=== PATIENT | female | born 1930 | race Caucasian/White ===

== ENCOUNTER 2016-07-20 12:39 | Outpatient (CLI) | payer MEDICARE | END 2016-07-20 12:40 | disposition home or self-care (01) | DX: R35.0 Frequency of micturition (principal) ==

== ENCOUNTER 2016-07-21 | Outpatient (CLI) | payer MEDICARE | END 2016-07-21 15:10 | disposition home or self-care (01) ==

== ENCOUNTER 2016-07-25 09:00 | Outpatient (CLI) | payer MEDICARE | END 2016-07-25 09:01 | disposition home or self-care (01) | DX: R35.0 Frequency of micturition (principal) ==

== ENCOUNTER 2016-07-29 14:16 | Emergency (ER) | payer MEDICARE ==
[2016-07-29] MEDS ORDERED: ALBUTEROL NEB 2.5 MG/3 ML INH STA (15:56)
[2016-07-29] MEDS ORDERED: DEXAMETHASONE 10 MG/ML VIAL PO STA (15:56)
[2016-07-29] MEDS ORDERED: ALBUTEROL NEB 2.5 MG/3 ML INH ONE (16:12)
[2016-07-29] MEDS ORDERED: DEXAMETHASONE 10 MG/ML VIAL ONE (16:13)
[2016-07-29] MEDS ORDERED: CHERRY SYRUP 10 ML UDC PO ONE (16:16)
== END 2016-07-29 17:09 | disposition home or self-care (01) ==
DX: J06.9 Acute upper respiratory infection, unspecified (principal); B97.89 Other viral agents as the cause of diseases classified elsewhere; R05 Cough; I10 Essential (primary) hypertension; Z87.891 Personal history of nicotine dependence
CPT/HCPCS: 71020; 93005; 93010; 94640; 99283; 99284; A9270; J7613

== ENCOUNTER 2016-08-11 08:58 | Outpatient (CLI) | payer MEDICARE | END 2016-08-11 08:59 | disposition home or self-care (01) | DX: K25.0 Acute gastric ulcer with hemorrhage (principal); D62 Acute posthemorrhagic anemia; R73.01 Impaired fasting glucose; M54.5 Low back pain; Z85.828 Personal history of other malignant neoplasm of skin; C50.919 Malignant neoplasm of unspecified site of unspecified female breast; M85.80 Other specified disorders of bone density and structure, unspecified site; M54.6 Pain in thoracic spine; M48.06 Spinal stenosis, lumbar region; B35.4 Tinea corporis; I10 Essential (primary) hypertension; R35.0 Frequency of micturition ==

== ENCOUNTER 2016-08-18 | Outpatient (CLI) | payer MEDICARE | END 2016-08-18 15:51 | disposition home or self-care (01) ==

== ENCOUNTER 2016-09-01 06:13 | Day surgery (SDC) | payer MEDICARE ==
[2016-09-01] MEDS ORDERED: LACTATED RINGERS 1,000 ML IV ONE (06:40)
[2016-09-01] MEDS ORDERED: BENZOCAINE/TETRACAINE/BUTAMBEN SPRAY 56 GM TOP ONE (07:39)
[2016-09-01] MEDS ORDERED: MIDAZOLAM 2 MG/2 ML VIAL IVP ONE (07:56)
[2016-09-01] MEDS ORDERED: fentaNYL 100 MCG/2 ML VIAL IVP ONE (07:56)
== END 2016-09-01 06:14 | disposition home or self-care (01) ==
PROC: 0DB68ZX Excision of Stomach, Via Natural or Artificial Opening Endoscopic, Diagnostic (ICD-10-PCS; principal; 2016-09-01 07:30)
DX: K25.9 Gastric ulcer, unspecified as acute or chronic, without hemorrhage or perforation (principal); K29.50 Unspecified chronic gastritis without bleeding; K44.9 Diaphragmatic hernia without obstruction or gangrene; I10 Essential (primary) hypertension; Z87.891 Personal history of nicotine dependence; Z88.0 Allergy status to penicillin; Z88.2 Allergy status to sulfonamides
CPT/HCPCS: 43239; A9270; J7120

== ENCOUNTER 2016-09-08 | Outpatient (CLI) | payer MEDICARE | END 2016-09-08 14:20 | disposition home or self-care (01) ==

== ENCOUNTER 2016-09-15 15:00 | Outpatient (CLI) | payer MEDICARE | END 2016-09-15 15:01 | disposition home or self-care (01) | DX: M54.5 Low back pain (principal) ==

== ENCOUNTER 2016-09-29 14:09 | Outpatient (CLI) | payer MEDICARE | END 2016-09-29 14:10 | disposition home or self-care (01) | DX: M54.5 Low back pain (principal) ==

== ENCOUNTER 2016-10-13 15:06 | Outpatient (CLI) | payer MEDICARE | END 2016-10-13 15:07 | disposition home or self-care (01) | DX: M54.5 Low back pain (principal) ==

== ENCOUNTER 2016-10-27 14:16 | Outpatient (CLI) | payer MEDICARE | END 2016-10-27 14:17 | disposition home or self-care (01) | DX: M54.5 Low back pain (principal) ==

== ENCOUNTER 2016-11-10 14:48 | Outpatient (CLI) | payer MEDICARE | END 2016-11-10 14:49 | disposition home or self-care (01) | DX: M54.5 Low back pain (principal) ==

== ENCOUNTER 2016-11-24 14:15 | Outpatient (CLI) | payer MEDICARE | END 2016-11-24 14:16 | disposition home or self-care (01) | DX: M54.5 Low back pain (principal) ==

== ENCOUNTER 2016-12-08 14:13 | Outpatient (CLI) | payer MEDICARE | END 2016-12-08 14:14 | disposition home or self-care (01) | LOC: CAM 14:13 | PROVIDERS: ATTEND Internal Medicine | DX: M54.5 Low back pain (principal) | CPT/HCPCS: 97810; 97811 ==

== ENCOUNTER 2016-12-16 14:36 | Outpatient (CLI) | payer MEDICARE ==
[2016-12-16 18:08] LABS: BASOPHILS % (AUTO) 0.7 %; EOSINOPHILS # (AUTO) 0.3 10^3/uL (0.0-0.7); EOSINOPHILS % (AUTO) 4.3 %; HCT - HEMATOCRIT 35.2 % (37.0-47.0); HGB - HEMOGLOBIN 11.8 g/dL (12.0-16.0); LYMPHOCYTES # (AUTO) 0.9 10^3/uL (1.5-3.5); LYMPHOCYTES % (AUTO) 14.8 %; MEAN CORPUSCULAR HEMOGLOBIN 31.9 pg (27.0-31.0); MEAN CORPUSCULAR HGB CONC 33.4 g/dL (32.0-36.0); MEAN CORPUSCULAR VOLUME 95.4 fL (81.0-99.0); MEAN PLATELET VOLUME 8.1 fL (7.9-10.8); MONOCYTES # (AUTO) 0.6 10^3/uL (0.0-1.0); MONOCYTES % (AUTO) 8.6 %; NEUTROPHILS # (AUTO) 4.6 10^3/uL (1.5-6.6); NEUTROPHILS % (AUTO) 71.6 %; NUCLEATED RED BLOOD CELLS AUTO 0.1 /100WBC; RED BLOOD COUNT 3.69 10^6/uL (4.20-5.40); RED CELL DISTRIBUTION WIDTH 13.5 % (12.0-15.0); UNCORRECTED WHITE BLOOD COUNT 6.4 x10^3/uL; WHITE BLOOD COUNT 6.4 x10^3/uL (4.8-10.8)
== END 2016-12-16 14:37 | disposition home or self-care (01) ==
LOC: LAB.F 14:36
PROVIDERS: ATTEND Internal Medicine
DX: D62 Acute posthemorrhagic anemia (principal); R73.01 Impaired fasting glucose; M54.5 Low back pain; C50.919 Malignant neoplasm of unspecified site of unspecified female breast; M85.80 Other specified disorders of bone density and structure, unspecified site; M54.6 Pain in thoracic spine; Z85.828 Personal history of other malignant neoplasm of skin; M48.06 Spinal stenosis, lumbar region; B35.4 Tinea corporis; I10 Essential (primary) hypertension
CPT/HCPCS: 36415; 82728; 85025

== ENCOUNTER 2016-12-22 14:22 | Outpatient (CLI) | payer MEDICARE | END 2016-12-22 14:23 | disposition home or self-care (01) | LOC: CAM 14:22 | PROVIDERS: ATTEND Internal Medicine | DX: M54.5 Low back pain (principal) | CPT/HCPCS: 97810; 97811 ==

== ENCOUNTER 2017-01-05 14:19 | Outpatient (CLI) | payer MEDICARE | END 2017-01-05 14:20 | disposition home or self-care (01) | LOC: CAM 14:19 | PROVIDERS: ATTEND Internal Medicine | DX: M54.5 Low back pain (principal) | CPT/HCPCS: 97810; 97811 ==

== ENCOUNTER 2017-01-26 14:18 | Outpatient (CLI) | payer MEDICARE | END 2017-01-26 14:19 | disposition home or self-care (01) | LOC: CAM 14:18 | PROVIDERS: ATTEND Internal Medicine | DX: M54.5 Low back pain (principal) | CPT/HCPCS: 97810; 97811 ==

== ENCOUNTER 2017-02-09 14:13 | Outpatient (CLI) | payer MEDICARE | END 2017-02-09 14:14 | disposition home or self-care (01) | LOC: CAM 14:13 | PROVIDERS: ATTEND Internal Medicine | DX: M54.5 Low back pain (principal) | CPT/HCPCS: 97810; 97811 ==

== ENCOUNTER 2017-02-23 14:13 | Outpatient (CLI) | payer MEDICARE | END 2017-02-23 14:14 | disposition home or self-care (01) | LOC: CAM 14:13 | PROVIDERS: ATTEND Internal Medicine | DX: M54.5 Low back pain (principal) | CPT/HCPCS: 97810; 97811 ==

== ENCOUNTER 2017-03-09 14:15 | Outpatient (CLI) | payer MEDICARE | END 2017-03-09 14:16 | disposition home or self-care (01) | LOC: CAM 14:15 | PROVIDERS: ATTEND Internal Medicine | DX: M54.5 Low back pain (principal) | CPT/HCPCS: 97810; 97811 ==

== ENCOUNTER 2017-04-05 12:49 | Outpatient (CLI) | payer MEDICARE ==
[2017-04-05 18:04] LABS: BASOPHILS % (AUTO) 0.7 %; EOSINOPHILS # (AUTO) 0.2 10^3/uL (0.0-0.7); EOSINOPHILS % (AUTO) 3.2 %; HCT - HEMATOCRIT 37.6 % (37.0-47.0); HGB - HEMOGLOBIN 12.8 g/dL (12.0-16.0); MEAN CORPUSCULAR HEMOGLOBIN 32.4 pg (27.0-31.0); MEAN CORPUSCULAR HGB CONC 34.1 g/dL (32.0-36.0); MEAN CORPUSCULAR VOLUME 94.9 fL (81.0-99.0); MONOCYTES # (AUTO) 0.5 10^3/uL (0.0-1.0); NEUTROPHILS # (AUTO) 3.6 10^3/uL (1.5-6.6); NEUTROPHILS % (AUTO) 67.1 %; NUCLEATED RED BLOOD CELLS AUTO 0.1 /100WBC; RED BLOOD COUNT 3.97 10^6/uL (4.20-5.40); RED CELL DISTRIBUTION WIDTH 13.3 % (12.0-15.0); UNCORRECTED WHITE BLOOD COUNT 5.4 x10^3/uL; WHITE BLOOD COUNT 5.4 x10^3/uL (4.8-10.8)
[2017-04-05 19:10] LABS: CALCIUM 10.1 mg/dL (8.5-10.3); POTASSIUM 3.6 mmol/L (3.5-5.0)
== END 2017-04-05 12:50 | disposition home or self-care (01) ==
LOC: LAB.F 12:49
PROVIDERS: ATTEND Internal Medicine
DX: R73.01 Impaired fasting glucose (principal); M54.5 Low back pain; C50.919 Malignant neoplasm of unspecified site of unspecified female breast; M85.80 Other specified disorders of bone density and structure, unspecified site; D62 Acute posthemorrhagic anemia; M54.6 Pain in thoracic spine; Z85.828 Personal history of other malignant neoplasm of skin; M48.06 Spinal stenosis, lumbar region; I10 Essential (primary) hypertension
CPT/HCPCS: 36415; 80048; 83540; 84466; 85025

== ENCOUNTER 2017-04-06 14:28 | Outpatient (CLI) | payer MEDICARE | END 2017-04-06 14:29 | disposition home or self-care (01) | LOC: CAM 14:28 | PROVIDERS: ATTEND Internal Medicine | DX: M54.5 Low back pain (principal) | CPT/HCPCS: 97813; 97814 ==

== ENCOUNTER 2017-04-20 14:16 | Outpatient (CLI) | payer MEDICARE | END 2017-04-20 14:17 | disposition home or self-care (01) | LOC: CAM 14:16 | PROVIDERS: ATTEND Internal Medicine | DX: M54.5 Low back pain (principal) | CPT/HCPCS: 97810; 97811 ==

== ENCOUNTER 2017-04-20 15:20 | Outpatient (CLI) | payer MEDICARE ==
--- NOTE | 2017-04-24 13:26 | Mammography Report ---
DIGITAL SCREENING MAMMOGRAM: 04/20/2017 CLINICAL INDICATION: An 86-year-old with personal history of left breast cancer status post mastecto my. COMPARISON: 04/2016, 12/2014, 07/2013, 05/2012, 04/2011, 04/2010. TECHNIQUE: Right CC and MLO views were obtained. FINDINGS: The right breast again demonstrates heterogeneously dense fibroglandular parenchyma. Coar se and punctate, typically benign calcifications are present. No suspicious masses, clustered microc alcifications, or regions of architectural distortion are identified. IMPRESSION: BENIGN FINDINGS. RECOMMENDATION: Routine annual screening unless otherwise clinically indicated. BI-RADS category 2, benign findings. STANDARD QUALIFYING STATEMENTS 1. This examination was reviewed with the aid of Computer-Aided Detection (CAD). 2. A negative or benign imaging report should not delay biopsy if clinically suspicious findings are present. Consider surgical consultation if warranted. More than 5% of cancers are not identified by i maging. 3. Dense breasts may obscure an underlying neoplasm. JOB #: [id number] EXT JOB #:[id number]
== END 2017-04-20 15:21 | disposition home or self-care (01) ==
LOC: DI 15:20
PROVIDERS: ATTEND Internal Medicine
DX: Z12.31 Encounter for screening mammogram for malignant neoplasm of breast (principal); Z85.3 Personal history of malignant neoplasm of breast; Z90.12 Acquired absence of left breast and nipple

== ENCOUNTER 2017-04-20 15:52 | Outpatient (CLI) | payer MEDICARE ==
--- NOTE | 2017-04-21 08:28 | XRAY Report ---
THREE-VIEW BILATERAL SHOULDERS: 04/20/2017 CLINICAL INDICATION: Pain. FINDINGS: Internal and external rotational views and scapular Y views of the bilateral shoulders wer e obtained. There is right worse than left glenohumeral osteoarthritis. The humeral heads are high- riding, suggestive of chronic rotator cuff tear. There is no evidence of acute fracture or dislocati on. There is fullness of the right hilum. Consider chest CT to exclude an underlying mass lesion. IMPRESSION: RIGHT WORSE THAN LEFT GLENOHUMERAL OSTEOARTHRITIS, WITH LIKELY BILATERAL CHRONIC ROTATOR CUFF TEARS. POSSIBLE RIGHT HILAR MASS. CONSIDER CHEST CT FOR FURTHER EVALUATION. JOB #: [id number] EXT JOB #:[id number]
== END 2017-04-20 15:53 | disposition home or self-care (01) ==
LOC: DI 15:52
PROVIDERS: ATTEND Internal Medicine
DX: M19.012 Primary osteoarthritis, left shoulder (principal); M19.011 Primary osteoarthritis, right shoulder

== ENCOUNTER 2017-04-24 12:13 | Outpatient (CLI) | payer MEDICARE ==
[2017-04-24] MEDS ORDERED: IOPAMIDOL-300 50 ML VIAL ONE (13:25)
[2017-04-24] MEDS ORDERED: IOPAMIDOL-300 50 ML VIAL PO ONE (14:17)
--- NOTE | 2017-04-24 14:37 | CT Report ---
CT CHEST WITH CONTRAST: 04/24/2017 CLINICAL INDICATION: History of right hilar mass. TECHNIQUE: Axial CT images of the chest were obtained with 40 mL of Isovue-300 intravenously, due to patient's renal insufficiency. In accordance with CT protocol optimization, one or more of the following dose reduction techniques w ere utilized for this exam: automated exposure control, adjustment of mA and/or KV based on patient size, or use of iterative reconstructive technique. COMPARISON: Images of the lung bases on abdominal CT of 03/11/2014. FINDINGS: The heart and great vessels demonstrate atherosclerotic calcification. No hilar or medias tinal lymphadenopathy is present. The lungs demonstrate dependent atelectasis. The calcified hamart marco antonio in the right azygoesophageal recess is again seen, measuring 3.7 cm (previously 3.7 cm). No pleu ral effusion or pneumothorax is present. Osseous structures demonstrate degenerative changes. Posto perative changes of left mastectomy are stable. Limited evaluation of upper abdominal structures dem onstrates normal adrenal glands. IMPRESSION: STABLE CALCIFIED HAMARTOMA IN THE AZYGOESOPHAGEAL RECESS. NO SIGNIFICANT INTERVAL STARLA Pang FROM 03/11/2014. JOB #: [id number] EXT JOB #:[id number]
== END 2017-04-24 12:14 | disposition home or self-care (01) ==
LOC: DI 12:13
PROVIDERS: ATTEND Internal Medicine
DX: R91.8 Other nonspecific abnormal finding of lung field (principal); Q85.9 Phakomatosis, unspecified
CPT/HCPCS: 71260; Q9967

== ENCOUNTER 2017-06-08 14:11 | Outpatient (CLI) | payer MEDICARE | END 2017-06-08 14:12 | disposition home or self-care (01) | LOC: CAM 14:11 | PROVIDERS: ATTEND Internal Medicine | DX: M54.5 Low back pain (principal) | CPT/HCPCS: 97813; 97814 ==

== ENCOUNTER 2017-06-17 09:41 | Outpatient (CLI) | payer MEDICARE | END 2017-06-17 09:42 | disposition critical access hospital (66) | LOC: EMS 09:41 | PROVIDERS: ATTEND Surgery | DX: S01.91XA Laceration without foreign body of unspecified part of head, initial encounter (principal); W19.XXXA Unspecified fall, initial encounter; Y92.009 Unspecified place in unspecified non-institutional (private) residence as the place of occurrence of the external cause | CPT/HCPCS: A0425; A0427 ==

== ENCOUNTER 2017-06-17 10:05 | Emergency (ER) | payer MEDICARE ==
[2017-06-17] MEDS ORDERED: SODIUM CHLORIDE 0.9% 1,000 ML IV ONE (12:02)
[2017-06-17] MEDS ORDERED: SODIUM CHLORIDE 0.9% 500 ML IV ONE (12:02)
[2017-06-17 12:26] LABS: BASOPHILS % (AUTO) 0.1 %; EOSINOPHILS % (AUTO) 0.2 %; HGB - HEMOGLOBIN 12.7 g/dL (12.0-16.0); LYMPHOCYTES # (AUTO) 0.3 10^3/uL (1.5-3.5); LYMPHOCYTES % (AUTO) 2.9 %; MEAN CORPUSCULAR HEMOGLOBIN 33.6 pg (27.0-31.0); MEAN CORPUSCULAR HGB CONC 34.4 g/dL (32.0-36.0); MEAN CORPUSCULAR VOLUME 97.8 fL (81.0-99.0); MEAN PLATELET VOLUME 7.1 fL (7.9-10.8); MONOCYTES # (AUTO) 0.5 10^3/uL (0.0-1.0); MONOCYTES % (AUTO) 5.5 %; NEUTROPHILS # (AUTO) 8.8 10^3/uL (1.5-6.6); NEUTROPHILS % (AUTO) 91.3 %; RED BLOOD COUNT 3.78 10^6/uL (4.20-5.40); UNCORRECTED WHITE BLOOD COUNT 9.6 x10^3/uL; WHITE BLOOD COUNT 9.6 x10^3/uL (4.8-10.8)
--- NOTE | 2017-06-17 12:31 | ED Physician Documentation ---
History of Present Illness - Stated complaint Stated Complaint: GLF - Chief complaint Chief Complaint: General - History obtained from History obtained from: Patient, Family, EMS - History of Present Illness Timing: Today Pain level max: 5 Pain level now: 5 Improved by: rest Worsened by: movement - Additonal information Additional information: Patient is an 86-year-old female who lives at home, she was making breakfast this morning when she tripped and fell, landing backwards on her head. States no loss of consciousness. No vomiting. Does have pain in the posterior aspect of her head as well as pain in the neck and upper back. Upon arrival with EMS she was found to be orthostatic. Was given IV fluids. They also noted that she was hypoxic, 86-88% on room air. Does not use oxygen at home. Patient denies any coughing. Denies a history of smoking. Does not use nebulizers. Does drink etoh daily, states normally starts with bourbon at about noon. Review of Systems Ten Systems: 10 systems reviewed and negative Constitutional: denies: Fever, Chills Ears: denies: Ear pain Nose: denies: Rhinorrhea / runny nose, Congestion Throat: denies: Sore throat Cardiac: denies: Chest pain / pressure Respiratory: denies: Dyspnea, Cough GI: denies: Abdominal Pain, Nausea, Vomiting, Diarrhea : denies: Dysuria Skin: denies: Rash Musculoskeletal: reports: Neck pain, Back pain Neurologic: denies: Focal weakness, Numbness, Syncope, Seizure, Confused, Altered mental status, LOC PD PAST MEDICAL HISTORY - Past Medical History Past Medical History: Yes Cardiovascular: Hypertension, Murmur Respiratory: None Neuro: None Endocrine/Autoimmune: None GI: None 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: Breast cancer : None HEENT: None Psych: Depression Musculoskeletal: Chronic back pain, Other Derm: None - Past Surgical History Past Surgical History: Yes General: Colonoscopy Ortho: Spine surgery /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: Hysterectomy, Mastectomy - Present Medications Home Medications: Ambulatory Orders Medication Instructions Recorded Confirmed Losartan [Cozaar] 100 mg PO DAILY 05/23/14 06/17/17 amLODIPine [Norvasc] 5 mg PO DAILY 05/23/14 06/17/17 Nortriptyline [Pamelor] 30 cap ORAL BID 12/06/14 06/17/17 Acetaminophen [Tylenol Extra 1,000 mg PO TID 05/19/16 06/17/17 Strength] Calcium Carbonate/Vitamin D3 1 each PO BID 05/19/16 06/17/17 [Calcium 600-Vit D3 400 Tablet] Albuterol Sulf [Ventolin Hfa 2 puffs INH Q4HR PRN #1 inhaler 07/29/16 05/08/17 Inhaler] Atenolol 50 mg PO DAILY 09/01/16 06/17/17 - Allergies Allergies/Adverse Reactions: Allergies Allergy/AdvReac Type Severity Reaction Status Date / Time lisinopril Allergy Severe Anaphylaxis Verified 06/17/17 10:42 ciprofloxacin [From Cipro] Allergy Unknown Unknown Verified 06/17/17 10:42 ciprofloxacin HCl * Allergy Unknown Unknown Verified 06/17/17 10:42 [From Cipro] Sulfa (Sulfonamide Allergy Unknown Unknown Verified 06/17/17 10:42 Antibiotics) - Social History Does the pt smoke?: No Smoking Status: Never smoker Does the pt drink ETOH?: Yes ETOH Use: Liquor Does the pt have substance abuse?: No - Immunizations Immunizations are current?: Yes - POLST Patient has POLST: No PD ED PE NORMAL - Vitals Vital signs reviewed: Yes - General General: Alert and oriented X 3, No acute distress, Well developed/nourished - HEENT HEENT: PERRL, EOMI, Ears normal, Moist mucous membranes, Pharynx benign, Other ( Abrasion and small hematoma to the occiput) - Neck Neck: Supple, no meningeal sign, Other (Mild mid C-spine tenderness to palpation approximately C3 through 5) - Cardiac Cardiac: RRR - Respiratory Respiratory: No respiratory distress, Clear bilaterally - Abdomen Abdomen: Soft, Non tender, Non distended - Back Back: Other (Diffuse thoracic tenderness to palpation as well as lumbar tenderness to palpation. No step-off or deformity) - Derm Derm: Warm and dry - Extremities Extremities: No deformity, No tenderness to palpate, Normal ROM s pain - Neuro Neuro: Alert and oriented X 3, No motor deficit, No sensory deficit Eye Opening: Spontaneous Motor: Obeys Commands Verbal: Oriented GCS Score: 15 - Psych Psych: Normal mood, Normal affect Results - Vitals Vitals: Vital Signs - 24 hr 06/17/17 06/17/17 06/17/17 10:07 10:22 11:53 Temperature 36.6 C 36.8 C 36.1 C L Heart Rate 77 78 Respiratory 16 18 18 Rate Blood Pressure 136/72 H 157/73 H 156/91 H O2 Saturation 88 L 100 98 06/17/17 06/17/17 06/17/17 13:47 14:50 16:34 Temperature 36.0 C L Heart Rate 82 82 75 Respiratory 18 22 18 Rate Blood Pressure 172/76 H 158/72 H 137/75 H O2 Saturation 93 97 94 Oxygen O2 Source Nasal cannula Oxygen Flow Rate 2 - Labs Labs: Laboratory Tests 06/17/17 06/17/17 06/17/17 12:19 12:19 12:19 WBC 9.6 RBC 3.78 L Hgb 12.7 Hct 37.0 MCV 97.8 MCH 33.6 H MCHC 34.4 RDW 14.0 Plt Count 98 L MPV 7.1 L Neut # 8.8 H Lymph # 0.3 L [place] # 0.5 Eos # 0.0 Baso # 0.0 Absolute Nucleated RBC 0.00 Nucleated RBC % 0.0 Sodium 133 L Potassium 3.7 Chloride 93 L Carbon Dioxide 28 Anion Gap 12.0 BUN 13 Creatinine 1.0 Estimated GFR (MDRD) 53 L Glucose 97 Calcium 9.1 Total Bilirubin 1.0 AST 30 ALT 16 Alkaline Phosphatase 48 B-Natriuretic Peptide 262 H Total Protein 7.3 Albumin 3.5 Globulin 3.8 Albumin/Globulin Ratio 0.9 L Lipase 18 L Urine Color Urine Clarity Urine pH Ur Specific [place] Urine Protein Urine Glucose (UA) Urine Ketones Urine Occult Blood Urine Nitrite Urine Bilirubin Urine Urobilinogen Ur Leukocyte Esterase Urine RBC Urine WBC Ur Squamous Epith Cells Urine Bacteria Ur Microscopic Review Urine Culture Comments Ethyl Alcohol < 5.0 06/17/17 14:10 WBC RBC Hgb Hct MCV MCH MCHC RDW Plt Count MPV Neut # Lymph # [place] # Eos # Baso # Absolute Nucleated RBC Nucleated RBC % Sodium Potassium Chloride Carbon Dioxide Anion Gap BUN Creatinine Estimated GFR (MDRD) Glucose Calcium Total Bilirubin AST ALT Alkaline Phosphatase B-Natriuretic Peptide Total Protein Albumin Globulin Albumin/Globulin Ratio Lipase Urine Color YELLOW Urine Clarity CLEAR Urine pH 6.0 Ur Specific [place] 1.020 Urine Protein NEGATIVE Urine Glucose (UA) NEGATIVE Urine Ketones TRACE Urine Occult Blood NEGATIVE Urine Nitrite POSITIVE H Urine Bilirubin NEGATIVE Urine Urobilinogen 0.2 (NORMAL) Ur Leukocyte Esterase NEGATIVE Urine RBC 0-5 Urine WBC 4-5 Ur Squamous Epith Cells FEW Squamous Urine Bacteria Many H Ur Microscopic Review INDICATED Urine Culture Comments INDICATED Ethyl Alcohol - Rads (name of study) cxr Radiology: Prelim report reviewed, EMP read contemporaneously, See rad report ( Low lung volumes. Lateral central bronchial wall thickening could reflect reactive airways disease or bronchitis. Left upper lobe density could flex focal pneumonia. Repeat study could be obtained after resolution of clinical symptoms to ensure radiographic resolution. ) CT head Radiology: Prelim report reviewed, EMP read contemporaneously, See rad report ( Posterior scalp hematoma laceration without fracture. Negative for intracranial acute hemorrhage and mass effect. ) CT c-spine Radiology: Prelim report reviewed, EMP read contemporaneously, See rad report ( Positive for an acute 2 column fracture of the T2 vertebral body with 30% loss of vertebral body heights without subluxation. 2. No fracture or subluxation of the cervical spine. ) CT t spine Radiology: Prelim report reviewed, EMP read contemporaneously, See rad report ( Acute T2 vertebral body 2 column fracture with 30% loss of vertebral body height. Mild bony central spinal canal narrowing. 2. Extension type acute fracture of T11 vertebral body with anterior superior corner of vertebral body displaced superiorly in the setting of an old wedging compression fracture. 3. Old unchanged T12 vertebral body fracture with vertebral plasty. ) CT L spine Radiology: Prelim report reviewed, EMP read contemporaneously, See rad report ( Acute fracture left L3 and possibly L2 transverse process. Subtle acute versus subacute fracture of the anterior sacrum at the S3 level without displacement. 3. Fracture of T11, described in thoracic spine CT report. 4. 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 ) PD MEDICAL DECISION MAKING - ED course Complexity details: reviewed old records, reviewed results, re-evaluated patient , considered differential, d/w patient, d/w network systems consultant ED course: Patient is an 86-year-old female who tripped and fell today at home. Found to be hypoxic with EMS, appears to have a left upper lobe density, possible focal pneumonia, will cover with antibiotics. Rocephin and azithromycin given at 1530. She was also found to have a T2 burst fracture, acute 2 column. A T11 fracture. L2 and L3 spinous process fractures. As well as a acute sacral fracture, S3 area. Discussed the case with Dr. Castro, emergency department at [facility] at 1520, he graciously accepts in transfer. Patient maintained in thoracolumbar spinal precautions and transferred to [facility] for further evaluation and care. This document was made in part using voice recognition software. While efforts are made to proofread this document, sound alike and grammatical errors may occur. Departure - Departure Disposition: 02 Transfer Acute Care Hosp Clinical Impression: Hypoxia Closed T2 fracture Qualifiers: Encounter type: initial encounter Fracture morphology: unspecified fracture morphology Qualified Code(s): S22.029A - Unspecified fracture of second thoracic vertebra, initial encounter for closed fracture T11 vertebral fracture Qualifiers: Encounter type: initial encounter Fracture type: closed Fracture morphology: unspecified fracture morphology Qualified Code(s): S22.089A - Unspecified fracture of T11-T12 vertebra, initial encounter for closed fracture Sacrum and coccyx fracture Qualifiers: Encounter type: initial encounter Fracture type: closed Qualified Code(s): S32.10XA - Unspecified fracture of sacrum, initial encounter for closed fracture Lumbar transverse process fracture Qualifiers: Encounter type: initial encounter Fracture type: closed Qualified Code(s): S32.009A - Unspecified fracture of unspecified lumbar vertebra, initial encounter for closed fracture Scalp hematoma Qualifiers: Encounter type: initial encounter Qualified Code(s): S00.03XA - Contusion of scalp, initial encounter Head injury Qualifiers: Encounter type: initial encounter Qualified Code(s): S09.90XA - Unspecified injury of head, initial encounter Pneumonia Qualifiers: Pneumonia type: due to unspecified organism Laterality: left Lung location: upper lobe of lung Qualified Code(s): J18.1 - Lobar pneumonia, unspecified organism Condition: Stable
[2017-06-17 12:39] LABS: ALBUMIN/GLOBULIN RATIO 0.9 (1.0-2.2); BUN - BLOOD UREA NITROGEN 13 mg/dL (6-20); CALCIUM 9.1 mg/dL (8.5-10.3); CARBON DIOXIDE - CO2 28 mmol/L (21-32); CHLORIDE 93 mmol/L (101-111); GFR - MDRD 53 (>89); GLUCOSE 97 mg/dL (70-100); LIPASE 18 U/L (22-51); POTASSIUM 3.7 mmol/L (3.5-5.0); SODIUM 133 mmol/L (135-145); TOTAL PROTEIN 7.3 g/dL (6.7-8.2)
--- NOTE | 2017-06-17 13:07 | XRAY Preliminary Report ---
Exam: XR CHEST 1 VIEW IMPRESSION: 1. Low lung volumes. 2. Lateral central bronchial wall thickening could reflect reactive airways disease or bronchitis. 3. Left upper lobe density could flex focal pneumonia. Repeat study could be obtained after resolutio n of clinical symptoms to ensure radiographic resolution. [facility] SITE ID: [id number]
--- NOTE | 2017-06-17 13:09 | XRAY Report ---
EXAM: CHEST RADIOGRAPHY EXAM DATE: 06/17/2017 12:45 PM. CLINICAL HISTORY: Hypoxia. COMPARISON: None. TECHNIQUE: 1 view. FINDINGS: Lungs/Pleura: Lung volumes are extremely low. Bilateral central bronchial wall thickening is seen whi ch could reflect reactive airways disease or bronchitis. Mild left upper lobe consolidation is seen w hich may represent pneumonia. No other focal consolidation. No evidence for pleural effusion or pneum othorax. Mediastinum: Mild cardiomegaly is evident. Atheromatous calcification at the aortic arch. Other: None. IMPRESSION: 1. Low lung volumes. 2. Lateral central bronchial wall thickening could reflect reactive airways disease or bronchitis. 3. Left upper lobe density could flex focal pneumonia. Repeat study could be obtained after resolutio n of clinical symptoms to ensure radiographic resolution. [facility] Referring Provider Line: [phone] SITE ID: [id number]
--- NOTE | 2017-06-17 14:07 | CT Preliminary Report ---
Exam: CT CERVICAL SPINE W/O IMPRESSION: 1. Positive for an acute 2 column fracture of the T2 vertebral body with 30% loss of vertebral body h eights without subluxation. 2. No fracture or subluxation of the cervical spine. [facility] SITE ID: [id number]
--- NOTE | 2017-06-17 14:10 | CT Report ---
EXAM: CT CERVICAL SPINE WITHOUT CONTRAST DATE: 06/17/2017 01:51 PM. HISTORY: Fall, neck pain. COMPARISONS: CT chest 04/24/2017. TECHNIQUE: Thin-section axial images were acquired of the cervical spine without contrast. Post-proce ssing: Coronal and sagittal reformats. Other: None. In accordance with CT protocol optimization, one or more of the following dose reduction techniques w ere utilized for this exam: automated exposure control, adjustment of mA and/or KV based on patient s ize, or use of iterative reconstructive technique. FINDINGS: Alignment: No significant subluxation or scoliosis. Bones: There is no fracture of the cervical spine. There is an acute 2 column fracture of the T2 vert ebral body. There is approximately 30% loss of vertebral body height at T2. Interspace Levels/Facets: There is moderate degenerative disk disease with disk height loss and endplate spurring at C5-C6 and C6-C7. There is mild degenerative disk disease at C4-C5. There is a moderate-sized disk bulge at C2-C 3. Musculature: Musculature appears symmetric. Other: There is a small right paravertebral hematoma at the T2 level adjacent to the fracture. There is a hypodense cyst or nodule in the right lobe of the thyroid measuring 1.1 cm in diameter. IMPRESSION: 1. Positive for an acute 2 column fracture of the T2 vertebral body with 30% loss of vertebral body h eights without subluxation. 2. No fracture or subluxation of the cervical spine. [facility] Referring Provider Line: [phone] SITE ID: [id number]
--- NOTE | 2017-06-17 14:11 | CT Preliminary Report ---
Exam: CT HEAD W/O IMPRESSION: 1. Posterior scalp hematoma laceration without fracture. 2. Negative for intracranial acute hemorrhage and mass effect. [facility] SITE ID: [id number]
[2017-06-17] MEDS ORDERED: A & D OINTMENT 5 GM PACKET TOP ONE (14:13)
--- NOTE | 2017-06-17 14:14 | CT Report ---
EXAM: CT HEAD EXAM DATE: 06/17/2017 01:51 PM. CLINICAL HISTORY: Fall, head injury. COMPARISON: None. TECHNIQUE: Multiaxial CT images were obtained from the foramen magnum to the vertex. Reformats: Coron al. IV contrast: None. In accordance with CT protocol optimization, one or more of the following dose reduction techniques w ere utilized for this exam: automated exposure control, adjustment of mA and/or KV based on patient s ize, or use of iterative reconstructive technique. FINDINGS: Parenchyma: Negative for acute hemorrhage. No mass effect or midline shift. There is mild to moderate periventricular white matter hypodensity. Extraaxial Spaces: No abnormal subdural or epidural fluid collection. Ventricles: Normal in size and position. Sinuses and Orbits: Imaged paranasal sinuses, orbits, and mastoids show no significant abnormality. Bones: There is a posterior right-sided scalp hematoma with soft tissue gas indicating laceration. No underlying calvarium fracture. Other: None. IMPRESSION: 1. Posterior scalp hematoma laceration without fracture. 2. Negative for intracranial acute hemorrhage and mass effect. [facility] Referring Provider Line: [phone] SITE ID: [id number]
--- NOTE | 2017-06-17 14:21 | CT Preliminary Report ---
Exam: CT THORACIC SPINE W/O IMPRESSION: 1. Acute T2 vertebral body 2 column fracture with 30% loss of vertebral body height. Mild bony centra l spinal canal narrowing. 2. Extension type acute fracture of T11 vertebral body with anterior superior corner of vertebral bod y displaced superiorly in the setting of an old wedging compression fracture. 3. Old unchanged T12 vertebral body fracture with vertebral plasty. [facility] SITE ID: [id number]
--- NOTE | 2017-06-17 14:24 | CT Report ---
EXAM: CT THORACIC SPINE WITHOUT CONTRAST EXAM DATE: 06/17/2017 01:51 PM. CLINICAL HISTORY: Fall, back pain. COMPARISONS: CT chest 04/24/2017. TECHNIQUE: Thin-section axial images were acquired of the thoracic spine from C7 to L1 without contra st. Post-processing: Coronal and sagittal reformats. Other: None. IV Contrast: None. In accordance with CT protocol optimization, one or more of the following dose reduction techniques w ere utilized for this exam: automated exposure control, adjustment of mA and/or KV based on patient s ize, or use of iterative reconstructive technique. FINDINGS: Alignment: No significant subluxation or scoliosis. Bones: There is an acute fracture at T2. There is a 2 column fracture of the T2 vertebral body with 3 0% loss of vertebral body height. There is mild posterior bulging of the T2 vertebral body cortex cau sing mild central bony canal narrowing. No pedicle or facet fracture. There is an anterior superior T 11 vertebral body fracture. The anterior superior corner of the vertebral body is displaced cranially by 3 mm with features of an extension type injury. This is superimposed upon an old wedging compress ion fracture of T11 area did there are findings of previous vertebral plasty at T12 which appear unch anged. Disk Levels/Facets: Disk height appears maintained. There is mild multilevel disk osteophyte spurring. Facet joints appea r in satisfactory alignment. No spinous process fracture. Musculature: Musculature is symmetric. Other: There is a calcified right paravertebral mass in the lower right chest measuring 3.4 x 3.1 cm without significant interval change. IMPRESSION: 1. Acute T2 vertebral body 2 column fracture with 30% loss of vertebral body height. Mild bony centra l spinal canal narrowing. 2. Extension type acute fracture of T11 vertebral body with anterior superior corner of vertebral bod y displaced superiorly in the setting of an old wedging compression fracture. 3. Old unchanged T12 vertebral body fracture with vertebral plasty. [facility] Referring Provider Line: [phone] SITE ID: [id number]
[2017-06-17 14:29] LABS: BILIRUBIN,URINE NEGATIVE (NEGATIVE)
[2017-06-17 14:30] LABS: UA w/ MICROSCOPIC CHARGE YES
--- NOTE | 2017-06-17 14:32 | CT Preliminary Report ---
Exam: CT LUMBAR SPINE W/O IMPRESSION: 1. Acute fracture left L3 and possibly L2 transverse process. 2. Subtle acute versus subacute fracture of the anterior sacrum at the S3 level without displacement. 3. Fracture of T11, described in thoracic spine CT report. 4. 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 [facility] SITE ID: [id number]
--- NOTE | 2017-06-17 14:35 | CT Report ---
EXAM: CT LUMBAR SPINE WITHOUT CONTRAST EXAM DATE: 06/17/2017 01:51 PM. CLINICAL HISTORY: Fall, back pain. COMPARISONS: Abdomen CT 03/11/2014. TECHNIQUE: Thin-section axial images were acquired of the lumbar spine from T12 to S1 without contras t. Post-processing: Coronal and sagittal reformats. Other: None. In accordance with CT protocol optimization, one or more of the following dose reduction techniques w ere utilized for this exam: automated exposure control, adjustment of mA and/or KV based on patient s ize, or use of iterative reconstructive technique. FINDINGS: Alignment: There is 25 degrees of apex right scoliotic curvature between L1 and L4. There is 3 mm of retrolisthesis of L1 over L2. Alignment at other levels appears satisfactory. Bones: Five [id number] lumbar vertebral bodies are present. There is bone cement from previous v ertebral plasty within the T12, L1, L2, L3, and L4 vertebral bodies. There is anterior wedging with 5 0% loss of anterior vertebral body height at L1. There is mild vertebral body height loss at L2. Ther e is an acute fracture of the T11 vertebral body described in separate report. There is a buckling of the cortex of the S3 level of the mid sacrum without significant displacement, new since 2013. There are findings of previous L4 laminectomy. There is an acute fracture of the left L3 and possible L2 t ransverse process. Disk Levels/Facets: There is diffuse moderately advanced disk height loss throughout the lumbar spine. There is diffuse f acet hypertrophy and spurring throughout the lumbar spine. There is moderate central spinal canal modesta nosis at the L2-L3 level secondary to disk bulge and facet hypertrophy. There is moderate central can al and foraminal stenosis at L3-L4 secondary to disk bulge and facet hypertrophy. Musculature: Normal. No fatty atrophy. Other: The visualized retroperitoneum is unremarkable. IMPRESSION: 1. Acute fracture left L3 and possibly L2 transverse process. 2. Subtle acute versus subacute fracture of the anterior sacrum at the S3 level without displacement. 3. Fracture of T11, described in thoracic spine CT report. 4. 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 [facility] Referring Provider Line: [phone] SITE ID: [id number]
[2017-06-17 14:40] LABS: UR CULTURE IF IND INDICATED
[2017-06-17] MEDS ORDERED: MORPHINE 10 MG/ML VIAL IVP STA (14:42)
[2017-06-17] MEDS ORDERED: MORPHINE 2 MG/ML SYRINGE ONE (14:53)
[2017-06-17] MEDS ORDERED: cefTRIAXone 1 GM VIAL IVP STA (15:18)
[2017-06-17] MEDS ORDERED: AZITHROMYCIN INJ 500 MG in SODIUM CHLORIDE 0.9% 250 ML IV STA (15:18)
[2017-06-17] MEDS ORDERED: cefTRIAXone 1 GM VIAL ONE (15:40)
[2017-06-17 18:08] VITALS: BP 150/76
== END 2017-06-17 17:48 | disposition short-term general hospital (02) ==
LOC: EDUNIT# → ED 10:05
DX: S22.029A Unspecified fracture of second thoracic vertebra, initial encounter for closed fracture (principal); S22.089A Unspecified fracture of T11-T12 vertebra, initial encounter for closed fracture; S32.10XA Unspecified fracture of sacrum, initial encounter for closed fracture; S32.038A Other fracture of third lumbar vertebra, initial encounter for closed fracture; S00.03XA Contusion of scalp, initial encounter; W01.0XXA Fall on same level from slipping, tripping and stumbling without subsequent striking against object, initial encounter; Y93.G3 Activity, cooking and baking; Y92.010 Kitchen of single-family (private) house as the place of occurrence of the external cause; J18.9 Pneumonia, unspecified organism; M51.36 Other intervertebral disc degeneration, lumbar region; I10 Essential (primary) hypertension; Z85.3 Personal history of malignant neoplasm of breast
CPT/HCPCS: 36415; 51701; 70450; 71010; 72125; 72128; 72131; 80053; 81001; 83690; 83880; 85025; 87086; 87181; 96374; 96375; 99285; A9270; G0480; J2270; 80320; 81003

== ENCOUNTER 2017-06-17 17:55 | Outpatient (CLI) | payer MEDICARE | END 2017-06-17 17:56 | disposition home or self-care (01) | LOC: EMS 17:55 | PROVIDERS: ATTEND Surgery | DX: S22.021A Stable burst fracture of second thoracic vertebra, initial encounter for closed fracture (principal) | CPT/HCPCS: A0170; A0425; A0426 ==

== ENCOUNTER 2017-08-01 15:56 | Outpatient (CLI) | payer MEDICARE | END 2017-08-01 15:57 | disposition EMS.NT | LOC: EMS 15:56 | PROVIDERS: ATTEND Surgery | DX: S09.90XA Unspecified injury of head, initial encounter (principal); M25.512 Pain in left shoulder; W18.30XA Fall on same level, unspecified, initial encounter; Y92.002 Bathroom of unspecified non-institutional (private) residence as the place of occurrence of the external cause ==

== ENCOUNTER 2017-08-01 16:54 | Emergency (ER) | payer MEDICARE ==
--- NOTE | 2017-08-01 17:21 | ED Physician Documentation ---
History of Present Illness - Stated complaint Stated Complaint: GLF - Chief complaint Chief Complaint: General - History obtained from History obtained from: Patient, Friend - History of Present Illness Timing: Other (86-year-old woman with frequent falls, from her history she is supposed to be using a walker but is only intermittently compliant. Sounds like she is chronically bad balance and this is exacerbated by the fact that she does drink daily. She fell today hitting the back of her head. She was also planned to have both shoulders x-rayed for indolent pain of both shoulders today. 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 : None HEENT: None Psych: Depression Musculoskeletal: Chronic back pain, Other Derm: None - Past Surgical History Past Surgical History: Yes General: Colonoscopy Ortho: Spine surgery /GLUE COOK: Hysterectomy, Mastectomy - Present Medications Home Medications: Ambulatory Orders Medication Instructions Recorded Confirmed Losartan [Cozaar] 100 mg PO DAILY 05/23/14 06/17/17 amLODIPine [Norvasc] 5 mg PO DAILY 05/23/14 06/17/17 Nortriptyline [Pamelor] 30 cap ORAL BID 12/06/14 06/17/17 Acetaminophen [Tylenol Extra 1,000 mg PO TID 05/19/16 06/17/17 Strength] Calcium Carbonate/Vitamin D3 1 each PO BID 05/19/16 06/17/17 [Calcium 600-Vit D3 400 Tablet] Albuterol Sulf [Ventolin Hfa 2 puffs INH Q4HR PRN #1 inhaler 07/29/16 05/08/17 Inhaler] Atenolol 50 mg PO DAILY 09/01/16 06/17/17 - Allergies Allergies/Adverse Reactions: Allergies Allergy/AdvReac Type Severity Reaction Status Date / Time lisinopril Allergy Severe Anaphylaxis Verified 08/01/17 18:09 ciprofloxacin [From Cipro] Allergy Unknown Unknown Verified 08/01/17 18:09 ciprofloxacin HCl * Allergy Unknown Unknown Verified 08/01/17 18:09 [From Cipro] Sulfa (Sulfonamide Allergy Unknown Unknown Verified 08/01/17 18:09 Antibiotics) - Social History Does the pt smoke?: No Smoking Status: Never smoker Does the pt drink ETOH?: Yes Does the pt have substance abuse?: No - Immunizations Immunizations are current?: Yes - POLST Patient has POLST: No PD ED PE NORMAL - Vitals Vital signs reviewed: Yes - General General: Alert and oriented X 3, No acute distress - HEENT HEENT: PERRL, EOMI, Other (There is a large hematoma on the top of the occiput without overlying laceration.) - Neck Neck: Supple, no meningeal sign, Other (Mild tenderness of the low C-spine) - Abdomen Abdomen: Soft, Non tender - Back Back: Other (There is a bruise on the left flank, not from today she says. She does have some tenderness of the high lumbar low thoracic spine.) - Derm Derm: Normal color, Warm and dry - Extremities Extremities: No deformity, No tenderness to palpate - Neuro Neuro: Alert and oriented X 3, Normal speech - Psych Psych: Normal mood, Normal affect Results - Vitals Vitals: Vital Signs - 24 hr 08/01/17 17:00 Temperature 36.5 C Heart Rate 77 Respiratory 18 Rate Blood Pressure 115/61 O2 Saturation 97 Oxygen O2 Source Room air - Rads (name of study) CT Head, C spine and T/L Spine Radiology: EMP read contemporaneously (CT of the head is negative, Cervical spine shows nothing acute, there is a thyroid nodule. T-spine shows a slight lower endplate compression of T5, multiple old fractures and chronic findings. L -spine is with chronic old fractures and healing lesions without acute fracture. ) [place] [facility] Radiology: EMP read contemporaneously (X-rays of both shoulders demonstrate marked bilateral degenerative disease and high riding shoulders consistent with underlying chronic rotator cuff tears and carotid calcifications.) PD MEDICAL DECISION MAKING - ED course ED course: 86-year-old woman with poor balance and some alcohol use presents after a fall while not using her walker. She was thoroughly imaged and the only acute finding was a T5 endplate fracture without neurologic findings. She was counseled to use her walker religiously And decrease alcohol use. Departure - Departure Disposition: 01 Home, Self Care Clinical Impression: Fall from ground level Head injury Qualifiers: Encounter type: initial encounter Qualified Code(s): S09.90XA - Unspecified injury of head, initial encounter Closed T5 fracture Qualifiers: Encounter type: initial encounter Fracture morphology: wedge compression Qualified Code(s): S22.050A - Wedge compression fracture of T5-T6 vertebra, initial encounter for closed fracture Back contusion Qualifiers: Encounter type: initial encounter Laterality: right Qualified Code(s): S20.221A - Contusion of right back wall of thorax, initial encounter Condition: Good Record reviewed to determine appropriate education?: Yes Instructions: ED Fx Comp Vertebral Comments: Use your walker religiously. Follow-up with your doctor. Decrease alcohol use. Return if worse. Tylenol as needed for pain.
--- NOTE | 2017-08-01 18:59 | XRAY Report ---
EXAM: BILATERAL SHOULDER RADIOGRAPHY EXAM DATE: 08/01/2017 05:54 PM. CLINICAL HISTORY: B shoulder pain. COMPARISON: 04/20/2017. TECHNIQUE: Each shoulder, 3 views. FINDINGS: Bones: Osteopenia. No definite fracture or other bone lesion. Joints: Marked bilateral glenohumeral joint space narrowing, right worse than left, with high riding shoulders, right worse than left. Soft tissues: Clear visualized lungs with diffuse interstitial prominence. Marked carotid calcificati ons. IMPRESSION: 1. Marked bilateral degenerative joint disease, right worse on left, similar to previous study. 2. High riding shoulders indicating underlying chronic rotator cuff tears. 3. Marked carotid calcifications. [facility] Referring Provider Line: [phone] SITE ID: [id number]
--- NOTE | 2017-08-01 19:02 | CT Report ---
EXAM: CT CERVICAL SPINE WITHOUT CONTRAST DATE: 08/01/2017 06:11 PM. HISTORY: Multiple falls. COMPARISONS: 06/17/2017. TECHNIQUE: Thin-section axial images were acquired of the cervical spine without contrast. Post-proce ssing: Coronal and sagittal reformats. Other: None. In accordance with CT protocol optimization, one or more of the following dose reduction techniques w ere utilized for this exam: automated exposure control, adjustment of mA and/or KV based on patient s ize, or use of iterative reconstructive technique. FINDINGS: Alignment: No evidence of dislocation. Bones: No cervical spine fracture or bone lesion. Interspace Levels/Facets: There is moderate multilevel degenerative disease. Musculature: No significant abnormalities are seen. Other: No evidence of prevertebral soft tissue swelling or apical pneumothorax. There is a 1.1 cm hyp odensity within the right thyroid lobe. IMPRESSION: 1. No evidence of cervical spine fracture or dislocation. 2. Thoracic spine findings are detailed separately. 3. There is a 1.1 cm hypodensity within the right thyroid lobe. Nonemergent thyroid ultrasound could be used for further evaluation of this finding as indicated. [facility] Referring Provider Line: [phone] SITE ID: [id number]
--- NOTE | 2017-08-01 19:09 | CT Preliminary Report ---
Exam: CT LUMBAR SPINE W/O IMPRESSION: 1. Multiple old or healing fractures. No definite acute fracture. 2. Degenerative and other chronic findings. [facility] SITE ID: [id number]
--- NOTE | 2017-08-01 19:09 | CT Report ---
EXAM: CT LUMBAR SPINE WITHOUT CONTRAST EXAM DATE: 08/01/2017 06:11 PM. CLINICAL HISTORY: Fall, pain. COMPARISONS: 06/17/2017. TECHNIQUE: Thin-section axial images were acquired of the lumbar spine from T12 to S1 without contras t. Post-processing: Coronal and sagittal reformats. Other: None. In accordance with CT protocol optimization, one or more of the following dose reduction techniques w ere utilized for this exam: automated exposure control, adjustment of mA and/or KV based on patient s ize, or use of iterative reconstructive technique. FINDINGS: Alignment: Mild scoliosis. Slight retrolisthesis of L1 and L2 similar to previous exam. No significan t listhesis. Bones: 5 lumbar vertebrae. Osteopenia. Old compression fractures of T12 and L1. Vertebral plasties of T12, L1, L2, L3, and L4.Fractures of left L1, L2, and L3 transverse processes with the previous exam . More clearly visualized is non-displaced fracture of S3, now with sclerosis indicating healing. No new fracture. Disk Levels/Facets: Marked disk space narrowing at L3-L4, L4-L5, and L5-S1 with associated degenerati ve changes as well as disk space narrowing at L2-L3 similar to previous exam. Musculature: Unremarkable. Other: Renal cysts, vascular calcifications, and other chronic findings. IMPRESSION: 1. Multiple old or healing fractures. No definite acute fracture. 2. Degenerative and other chronic findings. [facility] Referring Provider Line: [phone] SITE ID: [id number]
--- NOTE | 2017-08-01 19:11 | CT Report ---
EXAM: CT HEAD EXAM DATE: 08/01/2017 06:11 PM. CLINICAL HISTORY: Fall. COMPARISON: None. TECHNIQUE: Noncontrast axial imaging was performed through the head. In accordance with CT protocol optimization, one or more of the following dose reduction techniques w ere utilized for this exam: automated exposure control, adjustment of mA and/or KV based on patient s ize, or use of iterative reconstructive technique. FINDINGS HEAD CT: Parenchyma: No intraparenchymal hemorrhage. No evidence of mass, midline shift, or CT findings of acu te infarction. Periventricular white matter hypodensity may represent small vessel ischemic disease. Extraaxial Spaces: There is mild generalized volume loss. No subdural or epidural collections identif ied. Ventricles: Normal in size and position. Sinuses: Paranasal sinuses and mastoid air cells demonstrate no evidence of significant opacification . Bones: No evidence of fracture or calvarial defect. Other: There is left posterior scalp soft tissue swelling.. IMPRESSION: No acute intracranial CT abnormality. [facility] Referring Provider Line: [phone] SITE ID: [id number]
--- NOTE | 2017-08-01 19:18 | CT Report ---
EXAM: CT THORACIC SPINE WITHOUT CONTRAST EXAM DATE: 08/01/2017 06:11 PM. CLINICAL HISTORY: Fall, pain. COMPARISONS: C-spine and lumbar CT scans dated 06/17/2017. TECHNIQUE: Thin-section axial images were acquired of the thoracic spine from C7 to L1 without contra st. Post-processing: Coronal and sagittal reformats. Other: None. IV Contrast: None. In accordance with CT protocol optimization, one or more of the following dose reduction techniques w ere utilized for this exam: automated exposure control, adjustment of mA and/or KV based on patient s ize, or use of iterative reconstructive technique. FINDINGS: Alignment: Minimal high resting scoliosis. No listhesis. Bones: Osteopenia. Old T11 and T12 impression fractures with vertebroplasty at T12. Old biconcave com pression fracture of T2, slightly progressed since June. Slight lower endplate compression of T5, age unknown, but possibly recent. No other definite fracture or bone lesion. Disk Levels/Facets: Disk spaces generally well preserved, with mild narrowing at T1-T2 and T2-T3 as w ell as at T5-T6 and T11-T12. Generalized degenerative changes. Musculature: Unremarkable. Other: Coronary artery calcifications, tracheobronchial calcifications, calcified nodule in right [place] g base, and other chronic findings. IMPRESSION: 1. Slight lower endplate compression of T5, a 2 column lesion, but with no significant retropulsion. 2. Multiple old compression fractures with associated degenerative and other chronic findings. [facility] Referring Provider Line: [phone] SITE ID: [id number]
[2017-08-01 19:45] VITALS: BP 167/75
== END 2017-08-01 19:49 | disposition home or self-care (01) ==
LOC: ED 16:54
DX: S22.050A Wedge compression fracture of T5-T6 vertebra, initial encounter for closed fracture (principal); S20.221A Contusion of right back wall of thorax, initial encounter; S09.90XA Unspecified injury of head, initial encounter; W01.0XXA Fall on same level from slipping, tripping and stumbling without subsequent striking against object, initial encounter; Z91.81 History of falling; I10 Essential (primary) hypertension; Z85.3 Personal history of malignant neoplasm of breast
CPT/HCPCS: 70450; 72125; 72128; 72131; 99283; 99284

== ENCOUNTER 2017-09-18 13:33 | Outpatient (CLI) | payer MEDICARE ==
--- NOTE | 2017-09-19 07:57 | XRAY Report ---
TWO VIEW CHEST: 09/18/2017 COMPARISON: Comparison is a frontal chest 06/17/2017. INDICATION: Chest pain. TECHNIQUE: Two views. FINDINGS: Clear lungs. No pneumothorax or pleural effusion. Mediastinum stable. There are multiple thoracic compression fractures with prior kyphoplasties. IMPRESSION: NO EVIDENCE OF ACUTE THORACIC PROCESS. TD: 09[facility]19/2017 07[facility]
== END 2017-09-18 13:34 | disposition home or self-care (01) ==
LOC: DI 13:33
PROVIDERS: ATTEND Internal Medicine
DX: R07.9 Chest pain, unspecified (principal)
CPT/HCPCS: 71046; 93005

== ENCOUNTER 2017-12-09 16:08 | Outpatient (CLI) | payer MEDICARE | END 2017-12-09 16:09 | disposition critical access hospital (66) | LOC: EMS 16:08 | PROVIDERS: ATTEND Surgery | DX: R19.5 Other fecal abnormalities (principal); R42 Dizziness and giddiness; R53.1 Weakness | CPT/HCPCS: A0425; A0429 ==

== ENCOUNTER 2017-12-09 16:26 | Inpatient (IN) | payer MEDICARE ==
--- NOTE | 2017-12-09 16:43 | ED Physician Documentation ---
History of Present Illness - Stated complaint Stated Complaint: GI BLEED - Chief complaint Chief Complaint: Abd Pain - Additonal information Additional information: hx from pt 87 f hx GIB 2/2 PUD dx by endoscopy at [facility] woke up this morning very weak and had black stools no fall no abd pain no CP or SOA no blood thinners per prior dc summary last bleed was large gastric ulcer 2/2 EtoH and no varices she still drinks (a few bour[place] and camacho per night) no asa or NSAIDS Review of Systems Constitutional: denies: Fever Cardiac: denies: Chest pain / pressure Respiratory: denies: Dyspnea GI: reports: Bloody / black stool. 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 HEENT: None Psych: Depression Musculoskeletal: Chronic back pain, Other Derm: None - Past Surgical History Past Surgical History: Yes General: Colonoscopy Ortho: Spine surgery /AIRPLANE ENGINEER: Hysterectomy, Mastectomy - Present Medications Home Medications: Ambulatory Orders Medication Instructions Recorded Confirmed Losartan [Cozaar] 100 mg PO DAILY 05/23/14 06/17/17 amLODIPine [Norvasc] 5 mg PO DAILY 05/23/14 06/17/17 Nortriptyline [Pamelor] 30 cap ORAL BID 12/06/14 06/17/17 Acetaminophen [Tylenol Extra 1,000 mg PO TID 05/19/16 06/17/17 Strength] Calcium Carbonate/Vitamin D3 1 each PO BID 05/19/16 06/17/17 [Calcium 600-Vit D3 400 Tablet] Albuterol Sulf [Ventolin Hfa 2 puffs INH Q4HR PRN #1 inhaler 07/29/16 05/08/17 Inhaler] Atenolol 50 mg PO DAILY 09/01/16 06/17/17 - Allergies Allergies/Adverse Reactions: Allergies Allergy/AdvReac Type Severity Reaction Status Date / Time lisinopril Allergy Severe Anaphylaxis Verified 12/09/17 16:31 ciprofloxacin [From Cipro] Allergy Unknown Unknown Verified 12/09/17 16:31 ciprofloxacin HCl * Allergy Unknown Unknown Verified 12/09/17 16:31 [From Cipro] Sulfa (Sulfonamide Allergy Unknown Unknown Verified 12/09/17 16:31 Antibiotics) - Social History Does the pt smoke?: No Smoking Status: Never smoker Does the pt drink ETOH?: Yes Does the pt have substance abuse?: No - Immunizations Immunizations are current?: Yes - POLST Patient has POLST: No PD ED PE NORMAL - Vitals Vital signs reviewed: Yes - General General: Alert and oriented X 3 - Cardiac Cardiac: RRR - Respiratory Respiratory: No respiratory distress - Abdomen Abdomen: Soft, Non tender - Rectal Rectal: Other (black/dark ajay strongly heme + melena, lagre amt down her legs ) - Derm Derm: Normal color - Neuro Neuro: Alert and oriented X 3 Results - Vitals Vitals: Vital Signs - 24 hr 12/09/17 16:29 Temperature 36.9 C Heart Rate 91 Respiratory 18 Rate Blood Pressure 135/49 H O2 Saturation 100 Oxygen O2 Source Room air - Labs Labs: Laboratory Tests 12/09/17 12/09/17 12/09/17 16:54 16:54 16:54 WBC 5.7 RBC 2.65 L Hgb 8.7 L Hct 26.2 L MCV 98.8 MCH 32.9 H MCHC 33.3 RDW 13.0 Plt Count 152 MPV 9.1 Neut # (Auto) 4.4 Lymph # (Auto) 0.8 L Wells # (Auto) 0.4 Eos # (Auto) 0.0 Baso # (Auto) 0.0 Absolute Nucleated RBC 0.00 Nucleated RBC % 0.0 PT 13.7 H INR 1.2 APTT 15.8 L Sodium 132 L Potassium 3.9 Chloride 95 L Carbon Dioxide 27 Anion Gap 10.0 BUN 74 H Creatinine 0.9 Estimated GFR (MDRD) 60 L Glucose 135 H Calcium 9.5 Total Bilirubin 0.8 AST 22 ALT 12 Alkaline Phosphatase 58 Troponin I Total Protein 5.7 L Albumin 2.9 L Globulin 2.8 Albumin/Globulin Ratio 1.0 Lipase 63 H Blood Type Antibody Screen 12/09/17 12/09/17 16:54 16:54 WBC RBC Hgb Hct MCV MCH MCHC RDW Plt Count MPV Neut # (Auto) Lymph # (Auto) Wells # (Auto) Eos # (Auto) Baso # (Auto) Absolute Nucleated RBC Nucleated RBC % PT INR APTT Sodium Potassium Chloride Carbon Dioxide Anion Gap BUN Creatinine Estimated GFR (MDRD) Glucose Calcium Total Bilirubin AST ALT Alkaline Phosphatase Troponin I < 0.04 Total Protein Albumin Globulin Albumin/Globulin Ratio Lipase Blood Type O POSITIVE Antibody Screen NEGATIVE PD MEDICAL DECISION MAKING - ED course ED course: per dc summary late 2015 prior bleed was a large ulcer 2/2 EtOH but no varices were seen spoke to hospitalist at 1715 and he will admit - advises observation Departure - Departure Disposition: ED Place in Observation Clinical Impression: GI bleed Qualifiers: GI bleed type/associated pathology: melena Qualified Code(s): K92.1 - Melena Condition: Fair
[2017-12-09 17:02] LABS: BASOPHILS % (AUTO) 0.6 %; EOSINOPHILS % (AUTO) 0.2 %; HGB - HEMOGLOBIN 8.7 g/dL (12.0-16.0); LYMPHOCYTES # (AUTO) 0.8 10^3/uL (1.5-3.5); LYMPHOCYTES % (AUTO) 13.3 %; MEAN CORPUSCULAR HEMOGLOBIN 32.9 pg (27.0-31.0); MEAN CORPUSCULAR HGB CONC 33.3 g/dL (32.0-36.0); MEAN CORPUSCULAR VOLUME 98.8 fL (81.0-99.0); MEAN PLATELET VOLUME 9.1 fL (7.9-10.8); MONOCYTES # (AUTO) 0.4 10^3/uL (0.0-1.0); MONOCYTES % (AUTO) 7.8 %; NEUTROPHILS # (AUTO) 4.4 10^3/uL (1.5-6.6); NEUTROPHILS % (AUTO) 78.1 %; PLT - PLATELET COUNT 152 10^3/uL (130-450); RED BLOOD COUNT 2.65 10^6/uL (4.20-5.40); WHITE BLOOD COUNT 5.7 x10^3/uL (4.8-10.8)
[2017-12-09 17:10] LABS: INR 1.2 (0.8-1.2); PT - PROTHROMBIN TIME 13.7 secs (9.9-12.6)
[2017-12-09] MEDS ORDERED: FAMOTIDINE 20 MG/50 ML 50 ML IV ONE (17:10)
[2017-12-09 17:16] LABS: ALBUMIN 2.9 g/dL (3.2-5.5); BILIRUBIN,TOTAL 0.8 mg/dL (0.2-1.0); CALCIUM 9.5 mg/dL (8.5-10.3); CREATININE 0.9 mg/dL (0.4-1.0); TOTAL PROTEIN 5.7 g/dL (6.7-8.2)
[2017-12-09] MEDS ORDERED: ONDANSETRON 4 MG/2 ML VIAL IVP PRN (17:51)
[2017-12-09] MEDS ORDERED: SODIUM CHLORIDE 0.9% 1,000 ML IV SCH ×2 (18:00→18:03)
--- NOTE | 2017-12-09 18:06 | HISTORY & PHYSICAL EXAMINATION ---
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 She report there were "lots of black stool today morning, I had this happened before, but has more in this time." She feel some weakness but no obvious dizziness or lightheaded. Pt denies chest pain, shortness of breath. Pt report she did not use aspirin or ibuprofen or other blood thinner. Pt report she still continue to drink alcohol "I reduced my alcohol, not much but daily." Her last drink was last night. She report she never had withdrawal problem even she did not drink. Her prior file in last GI bleeding revealed she did not have varices. HGB is 8.7, normal liver enzyme now. Pt is admitted in observation for further evaluation and treatment. 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 She is window. She has one son who is living at [facility], one daughter who is living in [place]. Living arrangement: At home Living Situation: With family - Substance History Use: Uses substance without health or social issues: Alcohol Abuse: Recurrent use of substance despite neg consequences: Alcohol Dependence: Experiences withdrawal or developed tolerances: Alcohol - POLST Patient has POLST: No POLST Status: DNR Meds/Allgy - Home Medications Home Medications: Ambulatory Orders Medication Instructions Recorded Confirmed Losartan [Cozaar] 100 mg PO DAILY 05/23/14 06/17/17 amLODIPine [Norvasc] 5 mg PO DAILY 05/23/14 06/17/17 Nortriptyline [Pamelor] 30 cap ORAL BID 12/06/14 06/17/17 Acetaminophen [Tylenol Extra 1,000 mg PO TID 05/19/16 06/17/17 Strength] Calcium Carbonate/Vitamin D3 1 each PO BID 05/19/16 06/17/17 [Calcium 600-Vit D3 400 Tablet] Albuterol Sulf [Ventolin Hfa 2 puffs INH Q4HR PRN #1 inhaler 07/29/16 05/08/17 Inhaler] Atenolol 50 mg PO DAILY 09/01/16 06/17/17 - Allergies Allergies/Adverse Reactions: Allergies Allergy/AdvReac Type Severity Reaction Status Date / Time lisinopril Allergy Severe Anaphylaxis Verified 12/09/17 16:31 ciprofloxacin [From Cipro] Allergy Unknown Unknown Verified 12/09/17 16:31 ciprofloxacin HCl * Allergy Unknown Unknown Verified 12/09/17 16:31 [From Cipro] Sulfa (Sulfonamide Allergy Unknown Unknown Verified 12/09/17 16:31 Antibiotics) Review of Systems - Constitutional Constitutional: reports: Fatigue, Weakness. denies: Fever, Chills, Malaise, Poor appetite, Diaphoresis, Night sweats - Eyes Eyes: denies: Pain, Irritation, Amaurosis, Blurred vision, Spots in vision, Field loss, Vision loss, Dipolpia - Ears, Nose & Throat Ears, Nose & Throat: denies: Ear pain, Hearing loss, Hearing aids, Tinnitus, Vertigo, Nasal pain, Nasal discharge, Nosebleeds, Nasal obstruction, Nasal congestion, Dentures, Sore throat, Hoarseness, Mouth lesions, Bleeding gums - Cardiovascular Cariovascular: denies: Irregular heart rate, Palpitations, Chest pain, Edema, Lightheadedness, Syncope, Exertional dyspnea, Decr. exercise tolerance - Respiratory Respiratory: denies: Cough, Sputum production, Wheezing, Snoring, Hemoptysis, Orthopnea, SOB at rest, SOB with exertion - Gastrointestinal Gastrointestinal: reports: Black stools. denies: Abdominal pain, Abdominal distention, Constipation, Diarrhea, Change in bowel habits, Rectal bleeding, Bloody stools, Nausea, Vomiting, Bile emesis, Emerson blood emesis, Coffee grounds emesis - Genitourinary Genitourinary: denies: Dysuria, Frequency, Urgency, Hematuria, Incontinence, Flank pain, Nocturia, Urethral discharge - Musculoskeletal Musculoskeletal: denies: Muscle pain, Back pain, Muscle aches, Stiffness, Limited range of motion, Muscle weakness, Gout, Joint pain - Integumentary Integumentary: denies: Rash, Pruritis, Lesions, Dryness, Lumps, Acne, Pigment changes, Nail changes - Neurological Neurological: reports: General weakness. denies: Focal weakness, Headache, Dizziness, Numbness, Memory problems, Pre-existing deficit, Abnormal gait, Seizures, Incoordination, Slurred speech - Psychiatric Psychiatric: denies: Depression, Anxiety, Suicidal, Delusions, Hallucinations, Homicidal - Endocrine Endocrine: denies: Polyuria, Polydypsia, Polyphagia, Intolerance to cold - Hematologic/Lymphatic Hematologic/Lymphatic: reports: Anemia. denies: Bruising, Petechiae, Blood clots, Lymphadenopathy, Bleeding tendencies Exam - Vital Signs Reviewed Vital Signs: Yes Vital Signs: Vital Signs x48h Temp Pulse Resp BP Pulse Ox 12/09/17 16:29 36.9 C 91 18 135/49 H 100 - Physical Exam General Appearance: positive: No acute distress, Alert. negative: Lethargic Eyes Bilateral: positive: Normal inspection, PERRL, No lid inflammation, Conjunctivae nml ENT: positive: ENT inspection nml, Pharynx nml. negative: Purulent nasal drainage, Pharyngeal erythema, Oral lesions Neck: positive: Nml inspection, Thyroid nml, No JVD, Trachea midline. negative : Thyromegaly, Lymphadenopathy (R), Lymphadenopathy (L), Stiff neck, Carotid bruit, Swelling/bruising, Tracheal deviation Respiratory: positive: Chest non-tender, No respiratory distress, Breath sounds nml. negative: Wheezes, Rales, Rhonchi Cardiovascular: positive: Regular rate & rhythm, No murmur, No gallop. negative : Irregularly irregular, Extrasystoles, Tachycardia, Bradycardia, JVD present, Systolic murmur, Diastolic murmur Peripheral Pulses: positive: 2+ Abdomen: positive: Non-tender, No organomegaly, Nml bowel sounds, No distention. negative: Tenderness, Guarding, Rebound Back: positive: Nml inspection. negative: CVA tenderness (R), CVA tenderness (L ) Skin: positive: Color nml, No rash, Warm, Dry. negative: Cyanosis, Diaphoresis , Pallor Extremities: positive: Non-tender, Full ROM, Nml appearance. negative: Calf tenderness, Joint swelling, Shiva's sign/cords Neurologic/Psychiatric: positive: Oriented x3, Motor nml, Sensation nml, Mood/ affect nml. negative: Weakness, Sensory loss, Facial droop, Slurred/abnml speech, Depressed mood/affect Conclusion/Plan - Problem List (1) Black stools Conclusion/Plan: pt has large black stool, it seems secondary to pt continuing to drink. pt has hx of PUD and gastric ulcer but pt did not have PPI in her home meds list. consult surgeon NPO after midnight IVF H&H (2) Alcohol abuse Conclusion/Plan: pt has long hx issue, discuss with pt and consult for her to quit. pt report she does not have withdrawal of alcohol (3) HTN (hypertension) Conclusion/Plan: stable, resume home meds (4) Anemia Conclusion/Plan: HGB 8.7 now. H&H, will transfusion as needed (5) Hx of breast cancer Conclusion/Plan: in remission, will follow up her oncologist as out-pt (6) DVT prophylaxis Conclusion/Plan: SCD (7) Do not intubate, cardiopulmonary resuscitation (CPR)-only code status Conclusion/Plan: pt request DNR - Lab Results Fish Bones: 12/10/17 10:57 12/10/17 09:00 Core Measures - Anticipated LOS I expect patient to be DC'd or transferred within 96 hours.: Yes - DVT/VTE - Prophylaxis VTE/DVT Device ordered at admit?: Yes VTE/DVT Prophylaxis med ordered at admit?: No Not Ordered - Medical Reason: Contraindicated
[2017-12-09] MEDS ORDERED: SODIUM CHLORIDE 0.9% 1,000 ML IV ONE (18:51)
[2017-12-09] MEDS: SODIUM CHLORIDE FLUSH 0.9% 10 ML SYRINGE IVP PRN (19:31)
[2017-12-09] MEDS: PANTOPRAZOLE 40 MG VIAL IVP SCH (19:31)
[2017-12-09] MEDS ORDERED: diphenhydrAMINE 25 MG CAPSULE PO PRN (20:30)
[2017-12-09] MEDS: ACETAMINOPHEN 325 MG TABLET PO PRN (21:58)
[2017-12-09] MEDS: MIN OIL/DIMETHICON/COCONUT OIL 92 GM TUBE TOP PRN (22:09)
[2017-12-09 23:26] LABS: HGB - HEMOGLOBIN 7.2 g/dL (12.0-16.0)
[2017-12-10] MEDS: SODIUM CHLORIDE FLUSH 0.9% 10 ML SYRINGE IVP SCH ×4 (00:52→23:58)
[2017-12-10] MEDS: oxyCODONE 5 MG TABLET PO PRN ×3 (04:53→23:43)
[2017-12-10] MEDS: PANTOPRAZOLE 40 MG VIAL IVP SCH ×2 (08:12→16:17)
[2017-12-10] MEDS: SODIUM CHLORIDE FLUSH 0.9% 10 ML SYRINGE IVP PRN ×5 (08:14→22:06)
[2017-12-10] MEDS: amLODIPine 5 MG TABLET PO SCH (09:00)
[2017-12-10] MEDS: LOSARTAN 50 MG TABLET PO SCH (09:00)
[2017-12-10] MEDS: ATENOLOL 25 MG TABLET PO SCH (09:05)
[2017-12-10] MEDS: POLYETHYLENE GLYCOL 3350 17 GM PACKET PO SCH (09:05)
[2017-12-10 09:22] LABS: BASOPHILS % (AUTO) 0.6 %; EOSINOPHILS % (AUTO) 0.6 %; HGB - HEMOGLOBIN 10.7 g/dL (12.0-16.0); LYMPHOCYTES % (AUTO) 21.6 %; MEAN CORPUSCULAR HEMOGLOBIN 32.1 pg (27.0-31.0); MEAN CORPUSCULAR HGB CONC 34.7 g/dL (32.0-36.0); MEAN CORPUSCULAR VOLUME 92.6 fL (81.0-99.0); MEAN PLATELET VOLUME 8.6 fL (7.9-10.8); MONOCYTES # (AUTO) 0.4 10^3/uL (0.0-1.0); NEUTROPHILS # (AUTO) 3.2 10^3/uL (1.5-6.6); NEUTROPHILS % (AUTO) 69.2 %; PLT - PLATELET COUNT 100 10^3/uL (130-450); RED BLOOD COUNT 3.32 10^6/uL (4.20-5.40); RED CELL DISTRIBUTION WIDTH 15.3 % (12.0-15.0); WHITE BLOOD COUNT 4.6 x10^3/uL (4.8-10.8)
[2017-12-10 09:29] LABS: ALBUMIN 2.9 g/dL (3.2-5.5); ALBUMIN/GLOBULIN RATIO 1.1 (1.0-2.2); BILIRUBIN,TOTAL 1.7 mg/dL (0.2-1.0); CALCIUM 9.1 mg/dL (8.5-10.3); CREATININE 0.9 mg/dL (0.4-1.0); MAGNESIUM 1.1 mg/dL (1.7-2.8); TOTAL PROTEIN 5.6 g/dL (6.7-8.2)
[2017-12-10] MEDS: ACETAMINOPHEN 325 MG TABLET PO PRN ×2 (10:53→23:43)
[2017-12-10] MEDS ORDERED: LIDO GARGLE 30 ML BOTTLE ONE (11:35)
--- NOTE | 2017-12-10 11:39 | CONSULTATION NOTE ---
Referring Provider Name of Referring Provider:: Stokes Consult Date: 12/09/17 Chief Complaint - Chief Complaint Chief Complaint: Hematemesis History of Present Illness - Admitted From Admitted From:: Emergency Department - History Obtained From Records Reviewed: Yes History obtained from: Chart primarily and patient secondarily Exam Limitations: Patient is somewhat somnolent - History of Present Illness HPI Comment/Other: This 87 year old female who continues to drink alcohol (old Trent diop) has been scoped by Dr. Hensley as well as Dr. Eli in the past and was found to have a prepyloric ulcer which Dr. Eli had to inject. Dr. Hensley's follow- up EGD failed to reveal any bleeding source. Both physicians recommended that she take a proton pump inhibitor daily and yet the patient stopped them on her own because she was "tired of taking pills." She denies taking nonsteroidal anti-inflammatory drugs and appears reticent to stop drinking. I explained that regardless whether not she stops drinking she should take a proton pump inhibitor daily to help prevent these types of admissions to the hospital. She vocalized an understanding. 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: Breast cancer : reports: None HEENT: reports: None Psych: reports: Depression Musculoskeletal: reports: Chronic back pain, Other Derm: reports: None MRSA Hx?: No - Past Surgical History General: reports: Colonoscopy Ortho: reports: Spine surgery /BARGAIN TABLE CLERK: reports: Hysterectomy, Mastectomy - POLST Patient has POLST: No Meds/Allgy - Home Medications Home Medications: Ambulatory Orders Medication Instructions Recorded Confirmed Losartan [Cozaar] 100 mg PO DAILY 05/23/14 06/17/17 amLODIPine [Norvasc] 5 mg PO DAILY 05/23/14 06/17/17 Nortriptyline [Pamelor] 30 cap ORAL BID 12/06/14 06/17/17 Acetaminophen [Tylenol Extra 1,000 mg PO TID 05/19/16 06/17/17 Strength] Calcium Carbonate/Vitamin D3 1 each PO BID 05/19/16 06/17/17 [Calcium 600-Vit D3 400 Tablet] Albuterol Sulf [Ventolin Hfa 2 puffs INH Q4HR PRN #1 inhaler 07/29/16 05/08/17 Inhaler] Atenolol 50 mg PO DAILY 09/01/16 06/17/17 - Allergies Allergies/Adverse Reactions: Allergies Allergy/AdvReac Type Severity Reaction Status Date / Time lisinopril Allergy Severe Anaphylaxis Verified 12/09/17 16:31 ciprofloxacin [From Cipro] Allergy Unknown Unknown Verified 12/09/17 16:31 ciprofloxacin HCl * Allergy Unknown Unknown Verified 12/09/17 16:31 [From Cipro] Sulfa (Sulfonamide Allergy Unknown Unknown Verified 12/09/17 16:31 Antibiotics) Review of Systems - Constitutional Constitutional: reports: Fatigue. denies: Fever, Chills - Cardiovascular Cariovascular: denies: Chest pain - Respiratory Respiratory: denies: Cough, Sputum production, Wheezing - Gastrointestinal Gastrointestinal: reports: Black stools, Emerson blood emesis, Coffee grounds emesis Exam - Vital Signs Reviewed Vital Signs: Yes Vital Signs: Vital Signs x48h Temp Pulse Pulse Resp BP BP Pulse Ox 12/10/17 08:31 36.7 C 89 16 151/79 H 100 12/10/17 08:19 36.7 C 89 16 151/79 H 12/10/17 05:15 36.9 C 70 16 128/70 12/10/17 05:07 36.5 C 83 16 123/61 12/10/17 05:00 36.5 C 83 16 123/61 98 12/10/17 04:54 36.4 C L 75 16 134/59 H 12/10/17 03:53 37 C 66 20 124/45 L - Physical Exam General Appearance: positive: No acute distress (Somewhat somnolent.) Eyes Bilateral: positive: No lid inflammation, Conjunctivae nml, No scleral icterus ENT: positive: Dry mucous membranes Neck: positive: Trachea midline Respiratory: positive: Chest non-tender, No respiratory distress, Breath sounds nml Cardiovascular: positive: Regular rate & rhythm Abdomen: positive: Non-tender Skin: positive: Color nml Extremities: positive: Nml appearance Neurologic/Psychiatric: positive: Oriented x3 Conclusion/Plan - Diagnosis Diagnosis: Upper GI bleed likely from either ulcer or gastritis secondary to her continued alcohol use and her stopping her proton pump inhibitor - Plan Plan: Esophagogastroduodenoscopy with possible biopsies and/or polypectomies. Indications, procedure, alternatives (such as barium studies and even no procedure at all) and risks including but not limited to perforation requiring operative repair, bleeding with its risks, and were fully explained to her. I sherice diagrams explaining the upper gastrointestinal anatomy and the proposed procedure and handed it to her. Conscious sedation was discussed at length with her as were its risks including but not limited to loss of airway, aspiration, respiratory depression, and not enough relief of pain and anxiety and she indicated that she wished to have conscious sedation for her procedure. I explained that her posterior oropharynx would also be anesthetized for the procedure. I explained that MAC anesthesia is associated with a higher incidence of intestinal perforation. Review of her history does not reveal any significant systemic disease that would contraindicate use of conscious sedation or MAC anesthesia. All questions were fully answered. Verbal and written consent was obtained. The patient in preparation for her esophagogastroduodenoscopy has been n.p.o. except for medications with a small sip of water. 25 minutes of [id number] time spent with the patient the majority of which was spent in discussion - Lab Results Fish Bones: 12/10/17 10:57 12/10/17 09:00
[2017-12-10] MEDS ORDERED: LIDOCAINE-MPF 2% 5 ML VIAL IM ONE (11:40)
[2017-12-10] MEDS ORDERED: fentaNYL 100 MCG/2 ML VIAL IVP ONE (11:40)
[2017-12-10] MEDS ORDERED: PROPOFOL 200 MG/20 ML VIAL IVP ONE (11:40)
[2017-12-10] MEDS ORDERED: SODIUM CHLORIDE 0.9% 200 ML IV ONE (11:41)
[2017-12-10] MEDS ORDERED: LIDO GARGLE 30 ML BOTTLE TOP ONE (11:48)
[2017-12-10] MEDS ORDERED: BENZOCAINE/TETRACAINE/BUTAMBEN 20 GM TOP ONE (11:48)
[2017-12-10] MEDS ORDERED: LACTATED RINGERS 1,000 ML IV ONE (12:07)
[2017-12-10] MEDS ORDERED: SODIUM CHLORIDE 0.9% 1,000 ML IV SCH (13:00)
[2017-12-10] MEDS: SUCRALFATE 1 GM/10 ML UDC PO SCH ×3 (13:31→22:07)
--- NOTE | 2017-12-10 14:02 | PROVIDER PROGRESS NOTE ---
Subjective - Prog Note Date Prog Note Date: 12/10/17 - Subjective Pt reports feeling: Improved Subjective: pt had EGD done at morning. Pt is found to have multiple ulcer on upper GI. pt state she has appetite and want to eat, resume diet. Pt had major bleeding on yesterday and last night. watch pt overnight closely H&H, plan D/C tomorrow. Current Medications - Current Medications Current Medications: Active Medications Acetaminophen (Tylenol) 650 mg PO Q4HR PRN PRN Reason: Pain 1 to 4 Last Admin: 12/10/17 10:53 Dose: 650 mg Amlodipine Besylate (Norvasc) 5 mg PO DAILY [facility] Last Admin: 12/10/17 09:00 Dose: 5 mg Atenolol (Tenormin) 50 mg PO DAILY [facility] Last Admin: 12/10/17 09:05 Dose: 50 mg Diphenhydramine HCl (Benadryl) 25 mg PO QPM PRN PRN Reason: Insomnia Last Admin: 12/09/17 21:58 Dose: 25 mg Losartan Potassium (Cozaar) 100 mg PO DAILY [facility] Last Admin: 12/10/17 09:00 Dose: 100 mg Mineral Oil (Cavilon) 1 applic TOP PRN PRN PRN Reason: Skin Care Last Admin: 12/09/17 22:09 Dose: 1 applic Ondansetron HCl (Zofran Inj) 4 mg IVP Q6HR PRN PRN Reason: Nausea / Vomiting Oxycodone HCl (Roxicodone) 5 mg PO Q4HR PRN PRN Reason: PAIN Last Admin: 12/10/17 04:53 Dose: 5 mg Pantoprazole Sodium (Protonix) 40 mg IVP BIDAC [facility] Last Admin: 12/10/17 08:12 Dose: 40 mg Polyethylene Glycol (Miralax) 17 gm PO DAILY [facility] Last Admin: 12/10/17 09:05 Dose: Not Given Sodium Chloride (Normal Saline Flush 0.9%) 10 ml IVP PRN PRN PRN Reason: NEEDED PER PROVIDER ORDERS Last Admin: 12/10/17 13:33 Dose: 10 ml Sodium Chloride (Normal Saline Flush 0.9%) 10 ml IVP 0100,0900,1700 [facility] Last Admin: 12/10/17 08:14 Dose: 10 ml Sucralfate (Carafate) 1 gm PO 0700,1100,1600,2200 [place] Last Admin: 12/10/17 13:31 Dose: 1 gm Losartan [Cozaar] 100 mg PO DAILY 05/23/14 amLODIPine [Norvasc] 5 mg PO DAILY 05/23/14 Nortriptyline [Pamelor] 30 cap ORAL BID 12/06/14 Acetaminophen [Tylenol Extra Strength] 1,000 mg PO TID 05/19/16 Calcium Carbonate/Vitamin D3 [Calcium 600-Vit D3 400 Tablet] 1 each PO BID 05/19 Atenolol 50 mg PO DAILY 09/01/16 Objective - Vital Signs/Intake & Output Reviewed Vital Signs: Yes Vital Signs: Vital Signs x48h Temp Pulse Resp BP Pulse Ox 12/10/17 13:00 36.8 C 84 18 139/86 H 97 - Objective General Appearance: positive: No acute distress, Alert. negative: Lethargic Eyes Bilateral: positive: Normal inspection, PERRL, No lid inflammation, Conjunctivae nml ENT: positive: ENT inspection nml, Pharynx nml, No signs of dehydration. negative: Purulent nasal drainage, Pharyngeal erythema, Oral lesions Neck: positive: Nml inspection, Thyroid nml, No JVD, Trachea midline. negative : Thyromegaly, Lymphadenopathy (R), Lymphadenopathy (L), Stiff neck, Carotid bruit, Swelling/bruising, Tracheal deviation Respiratory: positive: Chest non-tender, No respiratory distress, Breath sounds nml. negative: Wheezes, Rales, Rhonchi Cardiovascular: positive: Regular rate & rhythm, No murmur, No gallop. negative : Irregularly irregular, Extrasystoles, Tachycardia, Bradycardia, JVD present, Systolic murmur, Diastolic murmur Peripheral Pulses: 2+ Radial (R), 2+ Radial (L), 2+ Dorsalis pedis (R), 2+ Dorsalis pedis (L) Abdomen: positive: Non-tender, No organomegaly, Nml bowel sounds, No distention. negative: Tenderness, Guarding, Rebound Back: positive: Nml inspection. negative: CVA tenderness (R), CVA tenderness (L ) Skin: positive: Color nml, No rash, Warm, Dry. negative: Cyanosis, Diaphoresis , Pallor Extremities: positive: Non-tender, Full ROM, Nml appearance. negative: Calf tenderness, Joint swelling, Shiva's sign/cords Neurologic/Psychiatric: positive: Oriented x3, Motor nml, Sensation nml, Mood/ affect nml. negative: Sensory loss, Facial droop, Slurred/abnml speech, Depressed mood/affect - Lab Results Fish Bones: 12/10/17 10:57 12/10/17 09:00 ABX Reporting Has patient been on IV antibiotics over the past 48 hours?: No Assessment/Plan - Problem List (1) Black stools Impression: Conclusion/Plan: pt is found to have multiple ulcers in upper GI track in EGD today no more black stool per pt report. pt had 2 unit of blood continue H&H tonight, pt had major GI bleeding last night continue Protonix add Carafact pt is advised to quit alcohol pt has large black stool, it seems secondary to pt continuing to drink. pt has hx of PUD and gastric ulcer but pt did not have PPI in her home meds list. consult surgeon NPO after midnight IVF H&H (2) Alcohol abuse Conclusion/Plan: pt is advised to quit alcohol pt has long hx issue, discuss with pt and consult for her to quit. pt report she does not have withdrawal of alcohol (3) HTN (hypertension) Conclusion/Plan: stable stable, resume home meds (4) Anemia Conclusion/Plan: HGB 10.0 continue H&H HGB 8.7 now. H&H, will transfusion as needed (5) Hx of breast cancer Conclusion/Plan: in remission, will follow up her oncologist as out-pt
[2017-12-10] MEDS: MIN OIL/DIMETHICON/COCONUT OIL 92 GM TUBE TOP PRN ×2 (16:18→22:07)
[2017-12-10 17:34] LABS: HGB - HEMOGLOBIN 9.9 g/dL (12.0-16.0)
[2017-12-10] MEDS ORDERED: MAGNESIUM SULFATE 1 GM in SODIUM CHLORIDE 0.9% 50 ML IV SCH (19:17)
[2017-12-10] MEDS: MAGNESIUM OXIDE 400 MG TABLET PO SCH (20:19)
[2017-12-10 23:33] LABS: HGB - HEMOGLOBIN 9.4 g/dL (12.0-16.0)
[2017-12-11 05:29] LABS: BASOPHILS # (AUTO) 0.1 10^3/uL (0.0-0.1); BASOPHILS % (AUTO) 1.4 %; EOSINOPHILS # (AUTO) 0.1 10^3/uL (0.0-0.7); EOSINOPHILS % (AUTO) 2.7 %; HGB - HEMOGLOBIN 9.4 g/dL (12.0-16.0); LYMPHOCYTES # (AUTO) 0.7 10^3/uL (1.5-3.5); LYMPHOCYTES % (AUTO) 18.4 %; MEAN CORPUSCULAR HEMOGLOBIN 31.3 pg (27.0-31.0); MEAN CORPUSCULAR HGB CONC 33.6 g/dL (32.0-36.0); MEAN CORPUSCULAR VOLUME 93.3 fL (81.0-99.0); MEAN PLATELET VOLUME 8.2 fL (7.9-10.8); MONOCYTES # (AUTO) 0.3 10^3/uL (0.0-1.0); MONOCYTES % (AUTO) 6.8 %; NEUTROPHILS # (AUTO) 2.9 10^3/uL (1.5-6.6); NEUTROPHILS % (AUTO) 70.7 %; PLT - PLATELET COUNT 91 10^3/uL (130-450); RED CELL DISTRIBUTION WIDTH 16.1 % (12.0-15.0); WHITE BLOOD COUNT 4.1 x10^3/uL (4.8-10.8)
[2017-12-11 05:41] LABS: ALBUMIN 2.7 g/dL (3.2-5.5); BILIRUBIN,TOTAL 0.7 mg/dL (0.2-1.0); CALCIUM 8.6 mg/dL (8.5-10.3); CREATININE 0.8 mg/dL (0.4-1.0); MAGNESIUM 1.5 mg/dL (1.7-2.8); TOTAL PROTEIN 5.3 g/dL (6.7-8.2)
[2017-12-11] MEDS: SODIUM CHLORIDE FLUSH 0.9% 10 ML SYRINGE IVP PRN (06:35)
[2017-12-11] MEDS: PANTOPRAZOLE 40 MG VIAL IVP SCH (06:35)
[2017-12-11] MEDS: oxyCODONE 5 MG TABLET PO PRN ×2 (06:35→10:59)
[2017-12-11] MEDS: SUCRALFATE 1 GM/10 ML UDC PO SCH ×2 (06:35→11:00)
[2017-12-11] MEDS ORDERED: POTASSIUM CHLORIDE 20 MEQ TABLET PO ONE ×2 (07:30→08:30)
[2017-12-11 07:59] VITALS: BP 121/57
--- NOTE | 2017-12-11 08:28 | MISCELLANEOUS PROVIDER NOTE ---
Miscellaneous Provider Note - - Note: Recommend starting treatment for Helicobacter pylori and have patient follow up with us for repeat EGD in about 6 weeks to check for complete healing. Again, and quite importantly, patient should be on life long PPIs as she has demonstrated more than once that off PPIs she forms ulcers. Will sign off care. Call with any surgical questions or concerns.
[2017-12-11] MEDS ORDERED: MAGNESIUM SULFATE 1 GM in SODIUM CHLORIDE 0.9% 50 ML IV ONE (08:30)
[2017-12-11] MEDS ORDERED: CLARITHROMYCIN 500 MG TABLET PO SCH (09:00)
[2017-12-11] MEDS ORDERED: AMOXICILLIN 250 MG CAPSULE PO SCH (09:00)
[2017-12-11] MEDS: POLYETHYLENE GLYCOL 3350 17 GM PACKET PO SCH (09:23)
[2017-12-11] MEDS: ACETAMINOPHEN 325 MG TABLET PO PRN (09:24)
[2017-12-11] MEDS: amLODIPine 5 MG TABLET PO SCH (09:24)
[2017-12-11] MEDS: LOSARTAN 50 MG TABLET PO SCH (09:25)
[2017-12-11] MEDS: SODIUM CHLORIDE FLUSH 0.9% 10 ML SYRINGE IVP SCH (09:25)
[2017-12-11] MEDS: ATENOLOL 25 MG TABLET PO SCH (09:25)
[2017-12-11] MEDS: MAGNESIUM OXIDE 400 MG TABLET PO SCH (09:27)
--- NOTE | 2017-12-11 10:24 | Discharge Plan ---
Discharge Plan Disposition: Home, Self Care Condition: Poor Prescriptions: oxyCODONE [Roxicodone] 5 mg PO Q4HR PRN #20 tablet PRN Reason: Pain Amoxicillin 500 mg PO TID #42 capsule Clarithromycin [Biaxin] 500 mg PO BID #28 tablet Omeprazole 40 mg PO DAILY #30 capsule. Sucralfate [Carafate] 1 gm PO BID #30 tablet Diet: Regular Activity Restrictions: Activity as Tolerated Shower Restrictions: No (caregiver closely monitor, fall precaution) Weight Bearing: Full Weight Instruction Topics: Amoxicillin capsules or tablets, Omeprazole tablets OTC, Clarithromycin tablets, Oxycodone tablets or capsules, Bleeding Gastrointestinal , H Pylori and Ulcers Additional Instructions or Follow Up instructions: You may follow up your PCP in 2-3 days, have been on life long PPIs, follow up Dr. Luo in 6 weeks to check for complete healing. Should your symptoms return or worsen, you may present ER or call 911 for help. No Smoking: If you smoke, Please STOP! Call for help. Follow-up with: Theodore Angela MD [Primary Care Provider] -
--- NOTE | 2017-12-11 11:20 | DISCHARGE SUMMARY ---
Discharge Summary Discharge Date: 12/11/17 Discharging Provider: WOODARD Primary Care Provider: Theodore Real Condition at Discharge: Poor Discharge Disposition: 01 Home, Self Care Discharge Facility Name: home - DIAGNOSES Admission Diagnoses: (1) Black stools (2) Alcohol abuse (3) HTN (hypertension) (4) Anemia (5) Hx of breast cancer Discharge Diagnoses with Status of Each Condition: (1) Black stools pt has no more black stool. HGB is stable. Pt had EGD which found pt had multiple gastric ulcer (pt's medical file), also pt is H. Pylori positive per surgeon report. Pt is advised to have life long PPI per surgeon's advice. 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 She report there were "lots of black stool today morning, I had this happened before, but has more in this time." She feel some weakness but no obvious dizziness or lightheaded. Pt denies chest pain, shortness of breath. Pt report she did not use aspirin or ibuprofen or other blood thinner. Pt report she still continue to drink alcohol "I reduced my alcohol, not much but daily." Her last drink was last night. She report she never had withdrawal problem even she did not drink. Her prior file in last GI bleeding revealed she did not have varices. HGB is 8.7, normal liver enzyme now. Pt is admitted in observation for further evaluation and treatment. - ALLERGIES Allergies/Adverse Reactions: Allergies Allergy/AdvReac Type Severity Reaction Status Date / Time lisinopril Allergy Severe Anaphylaxis Verified 12/09/17 16:31 ciprofloxacin [From Cipro] Allergy Unknown Unknown Verified 12/09/17 16:31 ciprofloxacin HCl * Allergy Unknown Unknown Verified 06/02/18 16:31 [From Cipro] Sulfa (Sulfonamide Allergy Unknown Unknown Verified 12/09/17 16:31 Antibiotics) - MEDICATIONS Home Medications: Ambulatory Orders Medication Instructions Recorded Confirmed Losartan [Cozaar] 100 mg PO DAILY 05/23/14 12/11/17 amLODIPine [Norvasc] 5 mg PO DAILY 05/23/14 12/11/17 Acetaminophen [Tylenol Extra 1,000 mg PO TID 05/19/16 12/11/17 Strength] Atenolol 50 mg PO DAILY 09/01/16 12/11/17 Amoxicillin 500 mg PO TID #42 capsule 12/11/17 Clarithromycin [Biaxin] 500 mg PO BID #28 tablet 12/11/17 Omeprazole 40 mg PO DAILY #30 capsule. 12/11/17 Sucralfate [Carafate] 1 gm PO BID #30 tablet 12/11/17 oxyCODONE [Roxicodone] 5 mg PO Q4HR PRN #20 tablet 12/11/17 - PHYSICAL EXAM AT DISCHARGE General Appearance: positive: No acute distress, Alert. negative: Lethargic Eyes Bilateral: positive: Normal inspection, PERRL, No lid inflammation, Conjunctivae nml ENT: positive: ENT inspection nml, Pharynx nml, No signs of dehydration. negative: Purulent nasal drainage, Pharyngeal erythema, Oral lesions Neck: positive: Nml inspection, Thyroid nml, No JVD. negative: Trachea midline , Thyromegaly, Lymphadenopathy (R), Lymphadenopathy (L), Stiff neck, Carotid bruit, Swelling/bruising, Tracheal deviation Respiratory: positive: Chest non-tender, No respiratory distress, Breath sounds nml. negative: Wheezes, Rales, Rhonchi Cardiovascular: positive: Regular rate & rhythm, No murmur, No gallop. negative : Irregularly irregular, Extrasystoles, Tachycardia, Bradycardia, JVD present, Systolic murmur, Diastolic murmur Peripheral Pulses: positive: 2+ Abdomen: positive: Non-tender, No organomegaly, Nml bowel sounds, No distention. negative: Tenderness, Guarding, Rebound Back: positive: Nml inspection. negative: CVA tenderness (R), CVA tenderness (L ) Skin: positive: Color nml, No rash, Warm, Dry. negative: Cyanosis, Diaphoresis , Pallor Extremities: positive: Non-tender, Full ROM, Nml appearance. negative: Calf tenderness, Joint swelling, Shiva's sign/cords Neurologic/Psychiatric: positive: Oriented x3, Motor nml, Sensation nml, Mood/ affect nml. negative: Weakness, Sensory loss, Facial droop, Slurred/abnml speech, Depressed mood/affect - LABS Result Diagrams: 12/11/17 05:17 12/11/17 05:17 - FOLLOW UP Follow Up: You may follow up your PCP in 2-3 days, have been on life long PPIs, follow up Dr. Luo in 6 weeks to check for complete healing. Should your symptoms return or worsen, you may present ER or call 911 for help. - TIME SPENT Time Spent in Discharge (Minutes): 50
== END 2017-12-11 12:55 | disposition home or self-care (01) | DRG 378 ==
LOC: EDUNIT# → ED 16:26 → OBS 17:51 → OBSVTOIN 12-10 11:44 → MS3 12-10 14:05
PROVIDERS: ADMIT Nurse Practitioner Gerontology; ATTEND Nurse Practitioner Gerontology
PROC: 0DB68ZX Excision of Stomach, Via Natural or Artificial Opening Endoscopic, Diagnostic (ICD-10-PCS; principal; 2017-12-10 11:30)
DX: K25.4 Chronic or unspecified gastric ulcer with hemorrhage (principal); D62 Acute posthemorrhagic anemia; F10.10 Alcohol abuse, uncomplicated; D64.9 Anemia, unspecified; K44.9 Diaphragmatic hernia without obstruction or gangrene; T50.996A Underdosing of other drugs, medicaments and biological substances, initial encounter; I10 Essential (primary) hypertension; F32.9 Major depressive disorder, single episode, unspecified; M54.9 Dorsalgia, unspecified; G89.29 Other chronic pain; Z66 Do not resuscitate; Z79.51 Long term (current) use of inhaled steroids; Z79.899 Other long term (current) drug therapy; Z90.10 Acquired absence of unspecified breast and nipple; Z87.11 Personal history of peptic ulcer disease; Z85.3 Personal history of malignant neoplasm of breast; Z90.710 Acquired absence of both cervix and uterus; Z87.891 Personal history of nicotine dependence
CPT/HCPCS: 43239; G0378; 36415; 36430; 80053; 83690; 83735; 84484; 85014; 85018; 85025; 85610; 85730; 86850; 86900; 86901; 86920; 87081; 93005; 96361; 96365; 96375; 96376; 99283; 99284

== ENCOUNTER 2017-12-16 10:45 | Emergency (ER) | payer MEDICARE ==
[2017-12-16 12:45] LABS: BASOPHILS % (AUTO) 0.6 %; EOSINOPHILS # (AUTO) 0.1 10^3/uL (0.0-0.7); EOSINOPHILS % (AUTO) 1.8 %; HGB - HEMOGLOBIN 10.4 g/dL (12.0-16.0); LYMPHOCYTES # (AUTO) 0.5 10^3/uL (1.5-3.5); LYMPHOCYTES % (AUTO) 10.4 %; MEAN CORPUSCULAR HEMOGLOBIN 32.6 pg (27.0-31.0); MEAN CORPUSCULAR HGB CONC 33.6 g/dL (32.0-36.0); MEAN CORPUSCULAR VOLUME 97.1 fL (81.0-99.0); MEAN PLATELET VOLUME 8.4 fL (7.9-10.8); MONOCYTES # (AUTO) 0.5 10^3/uL (0.0-1.0); MONOCYTES % (AUTO) 9.9 %; NEUTROPHILS # (AUTO) 3.9 10^3/uL (1.5-6.6); NEUTROPHILS % (AUTO) 77.3 %; PLT - PLATELET COUNT 143 10^3/uL (130-450); RED BLOOD COUNT 3.19 10^6/uL (4.20-5.40); RED CELL DISTRIBUTION WIDTH 14.5 % (12.0-15.0)
--- NOTE | 2017-12-16 12:47 | ED Physician Documentation ---
PD HPI GI BLEED - Stated complaint Stated Complaint: DARK DIARRHEA - Chief complaint Chief Complaint: Abd Pain - History obtained from History obtained from: Patient - History of Present Illness Timing - onset: How many days ago (few days still black stools and firm, now with looser stools and noting then to be andie today. Had been told to get checked if persistent dark stools. She is not feeling ab pain and is eating/ drinking fluids) Timing - duration: Days Timing - details: Gradual onset, Still present Associated symptoms: Black/tarry stool. No: Vomiting, Coffee ground emesis, BRBPR, Maroon stool, Fever, Dizzy, Near syncope / syncope Contributing factors: Recent antibiotics. No: Sick contact, Bad food, Travel Improved by: Eating. No: Laying still Worsened by: Eating Similar symptoms before: Diagnosis (bleeding ulcer with melena stoools.) Recently seen: Emergency Dept, Admitted, Surgery (had colonoscopy done showing bleeding ulcer. H.Pylori test from stomach lining. Dischared with Rxs for these problems) Review of Systems Constitutional: denies: Fever, Chills, Myalgias Nose: denies: Rhinorrhea / runny nose, Congestion Throat: denies: Sore throat Cardiac: denies: Chest pain / pressure, Palpitations Respiratory: denies: Dyspnea, Cough GI: reports: Abdominal Pain (intermittent upper abd with eating firmer foods.), Bloody / black stool. 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 : None HEENT: None Psych: Depression Musculoskeletal: Chronic back pain, Other Derm: None - Past Surgical History Past Surgical History: Yes General: Colonoscopy Ortho: Spine surgery /HOSTESS CASHIER: Hysterectomy, Mastectomy - Present Medications Home Medications: Ambulatory Orders Medication Instructions Recorded Confirmed Losartan [Cozaar] 100 mg PO DAILY 05/23/14 12/11/17 amLODIPine [Norvasc] 5 mg PO DAILY 05/23/14 12/11/17 Acetaminophen [Tylenol Extra 1,000 mg PO TID 05/19/16 12/11/17 Strength] Atenolol 50 mg PO DAILY 09/01/16 12/11/17 Amoxicillin 500 mg PO TID #42 capsule 12/11/17 Clarithromycin [Biaxin] 500 mg PO BID #28 tablet 12/11/17 Omeprazole 40 mg PO DAILY #30 capsule. 12/11/17 Sucralfate [Carafate] 1 gm PO BID #30 tablet 12/11/17 oxyCODONE [Roxicodone] 5 mg PO Q4HR PRN #20 tablet 12/11/17 - Allergies Allergies/Adverse Reactions: Allergies Allergy/AdvReac Type Severity Reaction Status Date / Time lisinopril Allergy Severe Anaphylaxis Verified 12/09/17 16:31 ciprofloxacin [From Cipro] Allergy Unknown Unknown Verified 12/09/17 16:31 ciprofloxacin HCl * Allergy Unknown Unknown Verified 12/09/17 16:31 [From Cipro] Sulfa (Sulfonamide Allergy Unknown Unknown Verified 12/09/17 16:31 Antibiotics) - Social History Does the pt smoke?: No Smoking Status: Former smoker Does the pt drink ETOH?: Yes Does the pt have substance abuse?: No - Immunizations Immunizations are current?: Yes - POLST Patient has POLST: No POLST Status: DNR PD ED PE NORMAL - Vitals Vital signs reviewed: Yes - General General: Alert and oriented X 3, No acute distress, Well developed/nourished - HEENT HEENT: Pharynx benign - Neck Neck: Supple, no meningeal sign, No adenopathy - Cardiac Cardiac: RRR, No murmur - Respiratory Respiratory: Clear bilaterally - Abdomen Abdomen: Normal bowel sounds, Soft, Non tender, Non distended, No organomegaly - Rectal Rectal: Deferred - Back Back: No CVA TTP - Derm Derm: Normal color, Warm and dry - Extremities Extremities: No tenderness to palpate, Normal ROM s pain, No edema, No calf tenderness / cord - Neuro Neuro: Alert and oriented X 3, No motor deficit, Normal speech - Psych Psych: Normal mood, Normal affect Results - Vitals Vitals: Vital Signs - 24 hr 12/16/17 12/16/17 10:53 13:41 Temperature 36.9 C Heart Rate 70 72 Respiratory 16 18 Rate Blood Pressure 148/67 H 142/78 H O2 Saturation 97 97 Oxygen O2 Source Room air - Labs Labs: Laboratory Tests 12/16/17 12/16/17 12:24 12:24 WBC 5.0 RBC 3.19 L Hgb 10.4 L Hct 31.0 L MCV 97.1 MCH 32.6 H MCHC 33.6 RDW 14.5 Plt Count 143 MPV 8.4 Neut # (Auto) 3.9 Lymph # (Auto) 0.5 L Howell # (Auto) 0.5 Eos # (Auto) 0.1 Baso # (Auto) 0.0 Absolute Nucleated RBC 0.00 Nucleated RBC % 0.0 Sodium 132 L Potassium 3.9 Chloride 97 L Carbon Dioxide 28 Anion Gap 7.0 BUN 16 Creatinine 0.9 Estimated GFR (MDRD) 60 L Glucose 114 H Calcium 9.1 Total Bilirubin 0.7 AST 27 ALT 20 Alkaline Phosphatase 61 Total Protein 6.7 Albumin 3.2 Globulin 3.5 Albumin/Globulin Ratio 0.9 L Lipase 81 H PD MEDICAL DECISION MAKING - ED course Complexity details: reviewed old records, reviewed results (her blood count is actually higher than at time of recent discharge. So not having much bleeding, if the dark stool is even that and not related to the meds being taken for the H.Pylori. Deferred rectal since would not change much treatment plan. ), considered differential, d/w patient - Sepsis Event Vital Signs: Vital Signs - 24 hr 12/16/17 12/16/17 10:53 13:41 Temperature 36.9 C Heart Rate 70 72 Respiratory 16 18 Rate Blood Pressure 148/67 H 142/78 H O2 Saturation 97 97 Oxygen O2 Source Room air Departure - Departure Disposition: 01 Home, Self Care Clinical Impression: Melena GI bleed Qualifiers: GI bleed type/associated pathology: gastric ulcer Qualified Code(s): K25.4 - Chronic or unspecified gastric ulcer with hemorrhage Condition: Stable Record reviewed to determine appropriate education?: Yes Instructions: ED Bleed UGI Stable Follow-Up: Theodore Angela MD [Primary Care Provider] - Comments: Your blood count today is actually higher than it was when you are in the hospital several days ago. So even though you are having some melena stools, you are not losing that much blood. He may also be dark-colored due to medications or taking possibly. Continue current medications. Follow-up with your primary care later this week, call Monday for an appointment. Discharge Date/Time: 12/16/17 13:43
[2017-12-16 13:04] LABS: ALBUMIN 3.2 g/dL (3.2-5.5); ALBUMIN/GLOBULIN RATIO 0.9 (1.0-2.2); BILIRUBIN,TOTAL 0.7 mg/dL (0.2-1.0); CALCIUM 9.1 mg/dL (8.5-10.3); CREATININE 0.9 mg/dL (0.4-1.0); TOTAL PROTEIN 6.7 g/dL (6.7-8.2)
[2017-12-16 13:43] VITALS: BP 142/78
== END 2017-12-16 13:43 | disposition home or self-care (01) ==
LOC: ED 10:45
DX: K92.1 Melena (principal); K25.4 Chronic or unspecified gastric ulcer with hemorrhage; I10 Essential (primary) hypertension; Z87.891 Personal history of nicotine dependence
CPT/HCPCS: 36415; 80053; 83690; 85025; 99282; 99283

== ENCOUNTER 2018-04-25 18:48 | Outpatient (CLI) | payer MEDICARE | END 2018-04-25 18:49 | disposition critical access hospital (66) | LOC: EMS 18:48 | PROVIDERS: ATTEND Surgery | DX: R06.00 Dyspnea, unspecified (principal) | CPT/HCPCS: A0425; A0429 ==

== ENCOUNTER 2018-04-25 19:10 | Inpatient (IN) | payer MEDICARE ==
--- NOTE | 2018-04-25 20:21 | ED Physician Documentation ---
PD HPI URI - Stated complaint Stated Complaint: SOA - Chief complaint Chief Complaint: Resp - History obtained from History obtained from: Patient - History of Present Illness Timing - onset: How many weeks ago (2) Timing duration: Weeks (2) Timing details: Still present (worse the past 2-3 days) Associated symptoms: Fever (the past 2-3 days), Chills, Productive cough, Dyspnea. No: Nasal congestion, Sore throat, Hemoptysis, Chest pain, Bilateral edema Contributing factors: Sick contact (her son has had similar chest cold to what patient had, but his is improving now whereas hers is worsening lately.) Improves by: No: Medication (she was on an abx for 3 days (that was whole of the Rx, but she does not know name; I presume it was [facility] - azithromax for 3 days).) Worsened by: Activity Similar symptoms before: Diagnosis (had pneumonia 1-2 years ago with similar.) Recently seen: Clinic (last week, with Rx antibiotic but no other meds. Not improved, and now worse the past few days.) Review of Systems Constitutional: reports: Fever, Chills, Myalgias, Fatigue Nose: reports: Congestion. denies: Rhinorrhea / runny nose Throat: denies: Sore throat Cardiac: denies: Chest pain / pressure Respiratory: reports: Dyspnea, Cough, Wheezing (the past few days) GI: denies: Nausea, Vomiting, Diarrhea Skin: denies: Rash, Lesions Neurologic: reports: Generalized weakness. 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: Breast cancer : None HEENT: None Psych: Depression Musculoskeletal: Chronic back pain, Other Derm: None - Past Surgical History Past Surgical History: Yes General: Colonoscopy Ortho: Spine surgery /PNEUMATIC PRESS HAND: Hysterectomy, Mastectomy - Present Medications Home Medications: Ambulatory Orders Medication Instructions Recorded Confirmed RX: Losartan [Cozaar] 100 mg PO DAILY 05/23/14 12/11/17 RX: amLODIPine [Norvasc] 5 mg PO DAILY 05/23/14 12/11/17 RX: Acetaminophen [Tylenol Extra 1,000 mg PO TID 05/19/16 12/11/17 Strength] RX: Atenolol 50 mg PO DAILY 09/01/16 12/11/17 RX: Amoxicillin 500 mg PO TID #42 capsule 12/11/17 RX: Clarithromycin [Biaxin] 500 mg PO BID #28 tablet 12/11/17 RX: Omeprazole 40 mg PO DAILY #30 capsule. 12/11/17 RX: oxyCODONE [Roxicodone] 5 mg PO Q4HR PRN #20 tablet 12/11/17 Sucralfate [Carafate] 1 gm PO BID #30 tablet 12/11/17 - Allergies Allergies/Adverse Reactions: Allergies Allergy/AdvReac Type Severity Reaction Status Date / Time lisinopril Allergy Severe Anaphylaxis Verified 12/09/17 16:31 ciprofloxacin [From Cipro] Allergy Unknown Unknown Verified 12/09/17 16:31 ciprofloxacin HCl * Allergy Unknown Unknown Verified 12/09/17 16:31 [From Cipro] Sulfa (Sulfonamide Allergy Unknown Unknown Verified 12/09/17 16:31 Antibiotics) - Living Situation Living Situation: reports: With family (her son) Living Arrangement: reports: At home - Social History Does the pt smoke?: No Smoking Status: Never smoker Does the pt drink ETOH?: Yes Does the pt have substance abuse?: Yes Substance Use and Type: Marijuana - Family History Family history: reports: Non contributory - Immunizations Immunizations are current?: Yes - POLST Patient has POLST: No POLST Status: DNR PD ED PE NORMAL - Vitals Vital signs reviewed: Yes (oxygen sats 83-88% RA here (arrived on O2 by EMS but tried her off it here)) - General General: Alert and oriented X 3, Well developed/nourished - HEENT HEENT: Pharynx benign - Neck Neck: Supple, no meningeal sign, No adenopathy - Cardiac Cardiac: RRR, No murmur - Respiratory Respiratory: No: Clear bilaterally (congested both sides. Diffuse exp wheezing. No labored breathing. ) - Abdomen Abdomen: Soft, Non tender - Female Female : Deferred - Rectal Rectal: Deferred - Back Back: No CVA TTP - Derm Derm: Normal color, Warm and dry - Extremities Extremities: No deformity, No tenderness to palpate, Normal ROM s pain, No edema, No calf tenderness / cord - Neuro Neuro: Alert and oriented X 3, No motor deficit, Normal speech Results - Vitals Vitals: Vital Signs - 24 hr 04/25/18 04/25/18 04/25/18 19:12 20:57 22:13 Temperature 36.5 C Heart Rate 80 63 79 Respiratory 20 18 22 Rate Blood Pressure 162/82 H 142/68 H O2 Saturation 97 94 04/25/18 22:39 Temperature Heart Rate 78 Respiratory 18 Rate Blood Pressure O2 Saturation Oxygen O2 Source Nasal cannula Oxygen Flow Rate 2 - Labs Labs: Laboratory Tests 04/25/18 04/25/18 04/25/18 21:10 21:10 22:44 WBC 5.3 RBC 3.77 L Hgb 11.3 L Hct 34.7 L MCV 92.0 MCH 30.0 MCHC 32.7 RDW 15.4 H Plt Count 180 MPV 8.4 Neut # (Auto) 4.7 Lymph # (Auto) 0.2 L [place]ette # (Auto) 0.3 Eos # (Auto) 0.0 Baso # (Auto) 0.0 Absolute Nucleated RBC 0.00 Nucleated RBC % 0.1 Manual Slide Review Indicated WBC Morphology NORMAL APPEARANCE Platelet Estimate NORMAL (130-450,000) Platelet Morphology PLATELET CLUMPING RBC Morph Micro Appear NORMAL APPEARANCE Sodium 116 L* Potassium 4.4 Chloride 84 L Carbon Dioxide 28 Anion Gap 4.0 L BUN 10 Creatinine 0.6 Estimated GFR (MDRD) 95 Glucose 123 H Lactic Acid 0.8 Calcium 8.7 Total Bilirubin 0.8 AST 20 ALT 10 Alkaline Phosphatase 63 B-Natriuretic Peptide Total Protein 6.9 Albumin 3.4 Globulin 3.5 Albumin/Globulin Ratio 1.0 Lipase 26 04/25/18 22:44 WBC RBC Hgb Hct MCV MCH MCHC RDW Plt Count MPV Neut # (Auto) Lymph # (Auto) [place] # (Auto) Eos # (Auto) Baso # (Auto) Absolute Nucleated RBC Nucleated RBC % Manual Slide Review WBC Morphology Platelet Estimate Platelet Morphology RBC Morph Micro Appear Sodium Potassium Chloride Carbon Dioxide Anion Gap BUN Creatinine Estimated GFR (MDRD) Glucose Lactic Acid Calcium Total Bilirubin AST ALT Alkaline Phosphatase B-Natriuretic Peptide 791 H Total Protein Albumin Globulin Albumin/Globulin Ratio Lipase - Rads (name of study) chest xray Radiology: Prelim report reviewed, EMP read contemporaneously (infiltrate right lower lung) PD MEDICAL DECISION MAKING - ED course Complexity details: reviewed results, re-evaluated patient (sats still 88-90% on RA after neb treatment. Resumed on oxygen NC with sats 95% at 2 lpm. ), considered differential, d/w patient, d/w sap portal consultant (Dr. Avila hospitalist) Departure - Departure Disposition: 66 [facility] DC/Xfer Clinical Impression: Hypoxemia Pneumonia Qualifiers: Pneumonia type: due to unspecified organism Laterality: right Lung location: lower lobe of lung Qualified Code(s): J18.1 - Lobar pneumonia, unspecified organism Dyspnea Qualifiers: Dyspnea type: shortness of breath Qualified Code(s): R06.02 - Shortness of breath Condition: Stable Record reviewed to determine appropriate education?: Yes Discharge Date/Time: 04/25/18 23:05
[2018-04-25] MEDS ORDERED: ALBUTEROL NEB 2.5 MG/3 ML INH STA ×2 (20:41→22:21)
[2018-04-25] MEDS ORDERED: DEXAMETHASONE 10 MG/ML VIAL IVP STA (20:42)
[2018-04-25] MEDS ORDERED: cefTRIAXone 1 GM in SODIUM CHLORIDE 0.9% MINIBAG 100 ML IV STA (20:42)
[2018-04-25 21:22] LABS: BASOPHILS % (AUTO) 0.2 %; EOSINOPHILS % (AUTO) 0.7 %; HGB - HEMOGLOBIN 11.3 g/dL (12.0-16.0); LYMPHOCYTES # (AUTO) 0.2 10^3/uL (1.5-3.5); LYMPHOCYTES % (AUTO) 4.1 %; MEAN CORPUSCULAR HGB CONC 32.7 g/dL (32.0-36.0); MEAN PLATELET VOLUME 8.4 fL (7.9-10.8); MONOCYTES # (AUTO) 0.3 10^3/uL (0.0-1.0); MONOCYTES % (AUTO) 5.7 %; NEUTROPHILS # (AUTO) 4.7 10^3/uL (1.5-6.6); NEUTROPHILS % (AUTO) 89.3 %; PLT - PLATELET COUNT 180 10^3/uL (130-450); RED BLOOD COUNT 3.77 10^6/uL (4.20-5.40); RED CELL DISTRIBUTION WIDTH 15.4 % (12.0-15.0); WHITE BLOOD COUNT 5.3 x10^3/uL (4.8-10.8)
[2018-04-25] MEDS ORDERED: AZITHROMYCIN INJ 500 MG in SODIUM CHLORIDE 0.9% 250 ML IV STA (21:25)
[2018-04-25 21:41] LABS: PLATELET ESTIMATE, MANUAL NORMAL (130-450,000) (NORMAL); PLATELET MORPHOLOGY PLATELET CLUMPING (NORMAL); RBC MORPHOLOGY (MULTIPLE) NORMAL APPEARANCE (NORMAL)
--- NOTE | 2018-04-25 21:58 | XRAY Report ---
Reason: chest pain left sided Procedure Date: 04/25/2018 Accession Number: [id number] / [id number] Procedure: XR - Chest 2 View X-Ray CPT Code: 84510 FULL RESULT: EXAM: CHEST RADIOGRAPHY EXAM DATE: 04/25/2018 09:35 PM. CLINICAL HISTORY: Left chest pain. Cough for 2 weeks. COMPARISON: CHEST 2 VIEW 09/18/2017 2:10 PM. TECHNIQUE: 2 views. FINDINGS: Lungs/Pleura: Blunted costophrenic angles, right worse than left. Focal haziness, lateral left midlung and right base. No pneumothorax. Mediastinum: Large heart. Calcified aorta. Other: Advanced degenerative changes of both shoulders. Multiple chronic compression fractures, with lower thoracic and lumbar vertebroplasties. IMPRESSION: 1. Bilateral pleural effusions, right greater than left. 2. Focal haziness concerning for infiltrates, lateral left midlung and right base. 3. Cardiomegaly. RADIA
[2018-04-25] MEDS ORDERED: PROCHLORPERAZINE 10 MG/2 ML VIAL IVP PRN (22:46)
[2018-04-25] MEDS ORDERED: ONDANSETRON 4 MG/2 ML VIAL IVP PRN (22:46)
--- NOTE | 2018-04-25 22:53 | HISTORY & PHYSICAL EXAMINATION ---
Chief Complaint - Chief Complaint Chief Complaint: Cough and shortness of breath History of Present Illness - Admitted From Admitted From:: Emergency Department - History Obtained From Records Reviewed: Yes History obtained from: Patient Exam Limitations: None - History of Present Illness HPI Comment/Other: Patient is an 87-year-old female with a past medical history significant for chronic alcohol use, chronic back pain status post 3 failed laminectomies, hypertension, history of left breast cancer stage II no longer on treatment and history of peptic ulcer disease who presented to the emergency department with a chief complaint of shortness of breath and cough. The patient states that she was in her normal state of health until 2 weeks ago when she got her flu shot. She states a few days later she began feeling ill. She states that she had symptoms of coughing and upper respiratory congestion. She states that 5 days ago she went to see her primary care physician who placed her on antibiotics. She was given 3 days of antibiotics and states that it made no difference in her symptoms. She states that over the last 2 days her symptoms have been progressing. She states that she has been having increasing cough without any sputum production. She also states that she has been having increasing shortne ss of breath. She states that she tried to take a nebulizer treatment at home but had no improvement. She tried calling her primary care physician however no one called back therefore she called 911 and was brought to the emergency department. The patient denies any orthopnea or PND. She does admit to nausea this morning and decreased appetite for the last several days. She also states that she has been eating and drinking less than normal due to her poor appetite and nausea. She states that she is normally a daily drinker but has not been drinking for the last few days because she has been feeling sick. She denies any history of alcohol withdrawal. She denies any chest pain or palpitations. The patient does admit to chronic back pain and has been having increasing generalized weakness over the last few days. Patient denies any headache, blurred vision, runny nose, sore throat, difficulty swallowing, increased lower extremity swelling, abdominal pain, vomiting, diarrhea, constipation, urinary urgency, urinary frequency, dysuria, increased joint swelling, neck stiffness, hair loss, skin rashes, skin changes, night sweats, polyuria, polydipsia or any focal neurologic deficits. On presentation to the emergency department the patient was hypoxic and was brought in on oxygen. The patient was down to 83% on room air but was saturating at around 95% with 2 L of oxygen. The patient was otherwise afebrile and not in significant respiratory distress. The patient's lab work did not reveal a leukocytosis but patient was hyponatremic with a sodium of 116. The patient's lactic acid was negative and she did have an elevated BNP of 791. The patient did undergo a chest x-ray which showed bilateral pleural effusions right greater than left and focal haziness concerning for infiltrates in the lateral left midlung and right base. According to the pneumonia severity index calculator the patient scores 95 points which puts her at a risk class IV with a 8.2-9.3% mortality and hospitalization is recommended based on this risk. The patient was admitted to the medical diallo for treatment of community-acquired pneumonia. History - Past Medical History Cardiovascular: reports: Hypertension, Murmur Respiratory: reports: None Neuro: reports: None Endocrine/Autoimmune: reports: None GI: reports: None FLOOR WINDER: reports: Breast cancer : reports: None HEENT: reports: None Psych: reports: Depression Musculoskeletal: reports: Chronic back pain, Other Derm: reports: None MRSA Hx?: No - Past Surgical History General: reports: Colonoscopy Ortho: reports: Spine surgery /FLOOR WINDER: reports: Hysterectomy, Mastectomy - Family & Social History Family History: Mother: , CAD, Cancer, Father: , Alzheimer's Disease, CVA/TIA Social History Notes: The patient lives with her son in [place], [place]. She is a . She also has 1 daughter who lives in [place]. She is still fairly independent with her activities of daily living. She has recently started to use a walker due to increasing arthritis. 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 She denies any tobacco abuse currently but did use to be a mild smoker but quit 15 years ago. 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 She drinks 2 glasses of bourbon daily. She denies having any history of alcohol withdrawal. She denies any recreational drug abuse. - Substance History Use: Uses substance without health or social issues: Alcohol - POLST Patient has POLST: No POLST Status: DNR Meds/Allgy - Home Medications Home Medications: Ambulatory Orders Medication Instructions Recorded Confirmed Losartan [Cozaar] 100 mg PO DAILY 05/23/14 12/11/17 amLODIPine [Norvasc] 5 mg PO DAILY 05/23/14 12/11/17 Acetaminophen [Tylenol Extra 1,000 mg PO TID 05/19/16 12/11/17 Strength] Atenolol 50 mg PO DAILY 09/01/16 12/11/17 Amoxicillin 500 mg PO TID #42 capsule 12/11/17 Clarithromycin [Biaxin] 500 mg PO BID #28 tablet 12/11/17 Omeprazole 40 mg PO DAILY #30 capsule. 12/11/17 Sucralfate [Carafate] 1 gm PO BID #30 tablet 12/11/17 oxyCODONE [Roxicodone] 5 mg PO Q4HR PRN #20 tablet 12/11/17 - Allergies Allergies/Adverse Reactions: Allergies Allergy/AdvReac Type Severity Reaction Status Date / Time lisinopril Allergy Severe Anaphylaxis Verified 12/09/17 16:31 ciprofloxacin [From Cipro] Allergy Unknown Unknown Verified 12/09/17 16:31 ciprofloxacin HCl * Allergy Unknown Unknown Verified 12/09/17 16:31 [From Cipro] Sulfa (Sulfonamide Allergy Unknown Unknown Verified 12/09/17 16:31 Antibiotics) Review of Systems - Other Findings Other Findings: A comprehensive review of systems was performed the pertinent positives and negatives are stated above in the HPI and the remainder of the review of systems is negative. Prior Level of Functionality: Patient is fairly independent however states that recently she has been requiring to use a walker due to increasing arthritis. She lives at home with her son. Exam - Vital Signs Reviewed Vital Signs: Yes Vital Signs: Vital Signs x48h Temp Pulse Resp BP Pulse Ox 04/25/18 22:39 78 18 04/25/18 22:13 79 22 142/68 H 94 04/25/18 20:57 63 18 04/25/18 19:12 36.5 C 80 20 162/82 H 97 - Physical Exam General Appearance: positive: No acute distress, Alert, Other (Ill appearing) Eyes Bilateral: positive: Normal inspection, PERRL, EOMI, No lid inflammation, Conjunctivae nml, No scleral icterus ENT: positive: ENT inspection nml, Pharynx nml, Dry mucous membranes. negative: Purulent nasal drainage, Pharyngeal erythema, Oral lesions Neck: positive: Nml inspection, Thyroid nml, No JVD, Trachea midline. negative: Thyromegaly, Lymphadenopathy (R), Lymphadenopathy (L), Stiff neck, Carotid bruit, Tracheal deviation Respiratory: positive: Chest non-tender, No respiratory distress, Wheezes (Diffuse, expiratory), Rales (Bases), Rhonchi (Bilateral, coarse rhonchi) Cardiovascular: positive: Regular rate & rhythm, No murmur, No gallop Peripheral Pulses: positive: 2+ Abdomen: positive: Non-tender, No organomegaly, Nml bowel sounds, No distention. negative: Guarding, Rebound, Hepatomegaly Back: positive: Nml inspection. negative: CVA tenderness (L) Skin: positive: Color nml, No rash, Warm, Dry Extremities: positive: Non-tender, Full ROM, Nml appearance, Pedal edema (Mild right LE more swollen than the left) Neurologic/Psychiatric: positive: Oriented x3, CN's nml (2-12), Motor nml, Sensation nml, Mood/affect nml Conclusion/Plan - Problem List (1) CAP (community acquired pneumonia) Conclusion/Plan: Patient presents to the emergency department with shortness of breath and coughing over the last 2 weeks which has become progressively worse. The patient failed outpatient treatment with oral antibiotics and got worse over the last 2 days since completing treatment. The patient was hypoxic down to 83% on room air requiring 2 L of oxygen in the emergency department. The patient's chest x-ray revealed lateral left midlung and right base infiltrates concerning for pneumonia. The patient did not have leukocytosis or fever but still appears to have pneumonia. The patient's pneumonia severity index calculator puts her at 90 five-point which makes her a risk class IV with a 8.2-9.3% mortality and hospitalization is recommended based on this risk. Plan: IV ceftriaxone and azithromycin for treatment of community acquired pneumonia IV fluids Supplemental oxygen Albuterol nebs as needed CT angiogram thorax to rule out pulmonary embolism and to look for possible malignancy given hyponatremia and pleural effusions. Echocardiogram given elevated BNP and pleural effusions. Qualifiers: Laterality: left Lung location: lower lobe of lung Qualified Code(s): J18.1 - Lobar pneumonia, unspecified organism (2) Hyponatremia Conclusion/Plan: The patient has severe hyponatremia on presentation with a sodium of 116. The patient appears to be hypovolemic on presentation. The patient states that she has not been eating or drinking well over the last several days due to her ongoing pneumonia. The patient is likely dehydrated secondary to poor appetite and ongoing infection. The patient may also have some SIADH due to ongoing infection. Plan: IV fluids with normal saline Monitor sodium closely and correct cautiously by no more than 10 mmol/L daily (3) HTN (hypertension) Conclusion/Plan: Patient has a history of hypertension and blood pressure was elevated on presentation to the emergency department. The patient will be continued on her home medications and we will continue to monitor the blood pressure and titrate medication as needed. Qualifiers: Hypertension type: essential hypertension Qualified Code(s): I10 - Essential (primary) hypertension (4) Chronic pain Conclusion/Plan: Patient has a history of chronic pain secondary to arthritis. 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 The patient uses oxycodone for the pain at home. While she is hospitalized here she will be continued on oxycodone. Currently the patient's pain is controlled. Qualifiers: Chronic pain type: other chronic pain Qualified Code(s): G89.29 - Other chronic pain - Lab Results Lab results reviewed: Yes Fish Bones: 04/25/18 21:10 04/25/18 22:44 Other Lab Results: Laboratory Results WBC 5.3 x10^3/uL (4.8-10.8) 04/25/18 21:10 RBC 3.77 10^6/uL (4.20-5.40) L 04/25/18 21:10 Hgb 11.3 g/dL (12.0-16.0) L 04/25/18 21:10 Hct 34.7 % (37.0-47.0) L 04/25/18 21:10 MCV 92.0 fL (81.0-99.0) 04/25/18 21:10 MCH 30.0 pg (27.0-31.0) 04/25/18 21:10 MCHC 32.7 g/dL (32.0-36.0) 04/25/18 21:10 RDW 15.4 % (12.0-15.0) H 04/25/18 21:10 Plt Count 180 10^3/uL (130-450) 04/25/18 21:10 MPV 8.4 fL (7.9-10.8) 04/25/18 21:10 Neut # (Auto) 4.7 10^3/uL (1.5-6.6) 04/25/18 21:10 Lymph # (Auto) 0.2 10^3/uL (1.5-3.5) L 04/25/18 21:10 Thomas # (Auto) 0.3 10^3/uL (0.0-1.0) 04/25/18 21:10 Eos # (Auto) 0.0 10^3/uL (0.0-0.7) 04/25/18 21:10 Baso # (Auto) 0.0 10^3/uL (0.0-0.1) 04/25/18 21:10 Absolute Nucleated RBC 0.00 x10^3/uL 04/25/18 21:10 Nucleated RBC % 0.1 /100WBC 04/25/18 21:10 Manual Slide Review Indicated 04/25/18 21:10 WBC Morphology NORMAL APPEARANCE (NORMAL) 04/25/18 21:10 Platelet Estimate NORMAL (130-450,000) (NORMAL) 04/25/18 21:10 Platelet Morphology PLATELET CLUMPING (NORMAL) 04/25/18 21:10 RBC Morph Micro Appear NORMAL APPEARANCE (NORMAL) 04/25/18 21:10 Sodium 116 mmol/L (135-145) L* 04/25/18 22:44 Potassium 4.4 mmol/L (3.5-5.0) 04/25/18 22:44 Chloride 84 mmol/L (101-111) L 04/25/18 22:44 Carbon Dioxide 28 mmol/L (21-32) 04/25/18 22:44 Anion Gap 4.0 (6-13) L 04/25/18 22:44 BUN 10 mg/dL (6-20) 04/25/18 22:44 Creatinine 0.6 mg/dL (0.4-1.0) 04/25/18 22:44 Estimated GFR (MDRD) 95 (>89) 04/25/18 22:44 Glucose 123 mg/dL (70-100) H 04/25/18 22:44 Lactic Acid 0.8 mmol/L (0.5-2.2) 04/25/18 21:10 Calcium 8.7 mg/dL (8.5-10.3) 04/25/18 22:44 Total Bilirubin 0.8 mg/dL (0.2-1.0) 04/25/18 22:44 AST 20 IU/L (10-42) 04/25/18 22:44 ALT 10 IU/L (10-60) 04/25/18 22:44 Alkaline Phosphatase 63 IU/L (42-121) 04/25/18 22:44 B-Natriuretic Peptide 791 pg/mL (5-100) H 04/25/18 22:44 Total Protein 6.9 g/dL (6.7-8.2) 04/25/18 22:44 Albumin 3.4 g/dL (3.2-5.5) 04/25/18 22:44 Globulin 3.5 g/dL (2.1-4.2) 04/25/18 22:44 Albumin/Globulin Ratio 1.0 (1.0-2.2) 04/25/18 22:44 Lipase 26 U/L (22-51) 04/25/18 22:44 - Diagnostic Imaging Results Diagnostic Imaging Results: positive: Final report reviewed Diagnostic Imaging Results Comments: Chest x-ray Impression: 1. Bilateral pleural effusions, right greater than left. 2. Focal haziness concerning for infiltrates, lateral left midlung and right base. 3. Cardiomegaly - EKG Results EKG Interpreted Independently: Yes EKG Findings: No ischemic changes Core Measures - Anticipated LOS I expect patient to be DC'd or transferred within 96 hours.: Yes - DVT/VTE - Prophylaxis VTE/DVT Prophylaxis med ordered at admit?: Yes
[2018-04-25] MEDS ORDERED: SODIUM CHLORIDE 0.9% 1,000 ML IV SCH (23:00)
[2018-04-25 23:20] LABS: ALBUMIN 3.4 g/dL (3.2-5.5); BILIRUBIN,TOTAL 0.8 mg/dL (0.2-1.0); CALCIUM 8.7 mg/dL (8.5-10.3); CREATININE 0.6 mg/dL (0.4-1.0); TOTAL PROTEIN 6.9 g/dL (6.7-8.2)
[2018-04-26] MEDS ORDERED: IOPAMIDOL-300 100 ML VIAL ONE (00:57)
[2018-04-26] MEDS: oxyCODONE 5 MG TABLET PO PRN ×4 (01:42→22:59)
[2018-04-26] MEDS: SODIUM CHLORIDE FLUSH 0.9% 10 ML SYRINGE IVP SCH ×3 (01:43→16:17)
[2018-04-26] MEDS: ATENOLOL 25 MG TABLET PO SCH ×3 (01:44→20:29)
[2018-04-26] MEDS ORDERED: IOPAMIDOL-300 100 ML VIAL IVP ONE ×2 (02:43→07:26)
--- NOTE | 2018-04-26 03:00 | CT Report ---
Reason: Hypoxia, shortness of breath history of breast ca Procedure Date: 04/26/2018 Accession Number: [id number] / [id number] Procedure: CT - Chest Angio (PE) CPT Code: FULL RESULT: EXAM: CT ANGIOGRAM CHEST EXAM DATE: 04/26/2018 02:41 AM. CLINICAL HISTORY: Hypoxia, shortness of breath, history of breast CA. COMPARISON: CHEST W/ 04/24/2017 1:39 PM. TECHNIQUE: Routine helical imaging was performed through the chest in the pulmonary arterial phase. IV Contrast: 80 mL Isovue 300. Reconstructions: Coronal 3D MIP reconstructions.Sagittal and coronal. In accordance with CT protocol optimization, one or more of the following dose reduction techniques were utilized for this exam: automated exposure control, adjustment of mA and/or KV based on patient size, or use of iterative reconstructive technique. FINDINGS: Pulmonary Arteries: Diagnostic quality: Adequate through the segmental arteries. No evidence for acute or chronic pulmonary emboli. The heart is borderline enlarged. There are extensive atherosclerotic vascular calcifications of the coronary arteries and the aorta. There is no evidence for aortic dissection. Lungs/Pleura: In the right lower hemithorax contiguous with the mediastinum there is a relatively large calcified mass which measures 3.7 cm in diameter. This is unchanged from the prior exam. The moderate size right pleural effusion is unchanged. The smaller left-sided pleural effusion is unchanged. There are zones of contiguous atelectasis in the lungs. Mediastinum: There are no enlarged lymph nodes in the mediastinum. There is a slightly prominent right hilar lymph node which measures 17 mm. Thoracic Aorta: No evidence for dissection. Upper Abdomen: There is a cyst along the peripheral aspect of the right kidney. Other: None. IMPRESSION: 1. No evidence for pulmonary emboli. No evidence for aortic dissection. 2. 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 3. Bilateral pleural effusions, right greater than left, with contiguous zones of atelectasis unchanged. RADIA
[2018-04-26 05:20] LABS: BASOPHILS % (AUTO) 0.4 %; EOSINOPHILS % (AUTO) 0.1 %; HGB - HEMOGLOBIN 10.1 g/dL (12.0-16.0); LYMPHOCYTES # (AUTO) 0.1 10^3/uL (1.5-3.5); LYMPHOCYTES % (AUTO) 2.3 %; MEAN CORPUSCULAR HEMOGLOBIN 30.5 pg (27.0-31.0); MEAN CORPUSCULAR HGB CONC 33.5 g/dL (32.0-36.0); MEAN PLATELET VOLUME 7.5 fL (7.9-10.8); MONOCYTES # (AUTO) 0.1 10^3/uL (0.0-1.0); MONOCYTES % (AUTO) 1.9 %; NEUTROPHILS # (AUTO) 2.9 10^3/uL (1.5-6.6); NEUTROPHILS % (AUTO) 95.3 %; PLT - PLATELET COUNT 144 10^3/uL (130-450); RED CELL DISTRIBUTION WIDTH 15.2 % (12.0-15.0)
[2018-04-26 05:41] LABS: CALCIUM 8.7 mg/dL (8.5-10.3); CREATININE 0.6 mg/dL (0.4-1.0)
[2018-04-26] MEDS: PANTOPRAZOLE 40 MG TABLET PO SCH (06:15)
[2018-04-26] MEDS ORDERED: ATENOLOL 25 MG TABLET PO SCH (09:00)
[2018-04-26] MEDS: amLODIPine 5 MG TABLET PO SCH (09:44)
[2018-04-26] MEDS: BACITRACIN OINT TOP PRN (09:44)
[2018-04-26] MEDS: ENOXAPARIN 40 MG/0.4 ML SYRINGE SUBQ SCH (09:44)
[2018-04-26] MEDS: LOSARTAN 50 MG TABLET PO SCH (09:45)
[2018-04-26] MEDS: SODIUM CHLORIDE 0.9% 1,000 ML IV SCH ×2 (09:45→12:55)
[2018-04-26] MEDS: SACCHAROMYCES BOULARDII 250 MG CAPSULE PO SCH ×2 (09:46→16:15)
[2018-04-26] MEDS: POLYETHYLENE GLYCOL 3350 17 GM PACKET PO SCH (12:14)
--- NOTE | 2018-04-26 15:30 | PROVIDER PROGRESS NOTE ---
Subjective - Prog Note Date Prog Note Date: 04/26/18 - Subjective Pt reports feeling: No change Subjective: pt report she feel sickness, no energetic, and weakness. she denies she had fever, chill. she denies chest pain. Current Medications - Current Medications Current Medications: Active Medications Acetaminophen (Tylenol) 650 mg PO Q4HR PRN PRN Reason: Pain 1 to 4 Albuterol () 2.5 mg INH Q4HR PRN PRN Reason: Wheezing Amlodipine Besylate (Norvasc) 5 mg PO DAILY [facility] Last Admin: 04/26/18 09:44 Dose: 5 mg Atenolol (Tenormin) 50 mg PO BID [facility] Last Admin: 04/26/18 09:45 Dose: 50 mg Bacitracin (Bacitracin) 1 packet TOP PRN PRN PRN Reason: Skin Care Last Admin: 04/26/18 09:44 Dose: 1 packet Enoxaparin Sodium (Lovenox) 40 mg SUBQ DAILY [facility] Last Admin: 04/26/18 09:44 Dose: 40 mg Azithromycin 500 mg/ Sodium (Chloride) 250 mls @ 250 mls/hr IV Q24H [facility] Ceftriaxone Sodium 2 gm/ (Sodium Chloride) 100 mls @ 200 mls/hr IV Q24H [facility] Sodium Chloride (Normal Saline 0.9%) 1,000 mls @ 75 mls/hr IV .[id number] [facility] Last Admin: 04/26/18 12:55 Dose: 75 mls/hr Losartan Potassium (Cozaar) 100 mg PO DAILY [facility] Last Admin: 04/26/18 09:45 Dose: 100 mg Ondansetron HCl (Zofran Inj) 4 mg IVP Q6HR PRN PRN Reason: Nausea / Vomiting Oxycodone HCl (Roxicodone) 5 mg PO Q4HR PRN PRN Reason: Pain 5 to 7 Last Admin: 04/26/18 09:45 Dose: 5 mg Oxycodone HCl (Roxicodone) 10 mg PO Q4HR PRN PRN Reason: Pain 8 to 10 Pantoprazole Sodium (Protonix) 40 mg PO QDAC [facility] Last Admin: 04/26/18 06:15 Dose: 40 mg Polyethylene Glycol (Miralax) 17 gm PO DAILY [facility] Last Admin: 04/26/18 12:14 Dose: Not Given Prochlorperazine Edisylate (Compazine Inj) 10 mg IVP Q6HR PRN PRN Reason: Nausea / Vomiting Saccharomyces Boulardii (Florastor) 250 mg PO BIDWM [facility] Last Admin: 04/26/18 09:46 Dose: 250 mg Sodium Chloride (Normal Saline Flush 0.9%) 10 ml IVP PRN PRN PRN Reason: NEEDED PER PROVIDER ORDERS Sodium Chloride (Normal Saline Flush 0.9%) 10 ml IVP 0100,0900,1700 [facility] Last Admin: 04/26/18 07:36 Dose: Not Given Losartan [Cozaar] 100 mg PO DAILY 05/23/14 amLODIPine [Norvasc] 5 mg PO DAILY 05/23/14 Acetaminophen [Tylenol Extra Strength] 1,000 mg PO TID 05/19/16 Atenolol 50 mg PO BID 09/01/16 DULoxetine [Cymbalta] 30 mg PO DAILY 04/26/18 oxyCODONE [Roxicodone] 5 mg PO Q4H PRN 04/26/18 Objective - Vital Signs/Intake & Output Reviewed Vital Signs: Yes Vital Signs: Vital Signs x48h Temp Pulse Resp BP Pulse Ox 04/26/18 07:39 36.3 C L 69 20 141/65 H 97 Intake & Output: Intake & Output 04/23/18 04/24/18 04/25/18 04/26/18 23:59 23:59 23:59 23:59 Intake Total 100 1941.667 Output Total 375 Balance 100 1566.667 - Objective General Appearance: positive: No acute distress, Alert. negative: Lethargic Eyes Bilateral: positive: Normal inspection, PERRL, No lid inflammation, Conjunctivae nml ENT: positive: ENT inspection nml, Pharynx nml, No signs of dehydration. negative: Purulent nasal drainage, Pharyngeal erythema, Oral lesions Neck: positive: Nml inspection, Thyroid nml, No JVD, Trachea midline. negative: Thyromegaly, Lymphadenopathy (R), Lymphadenopathy (L), Stiff neck, Kernig's sign, Swelling/bruising, Tracheal deviation Respiratory: positive: Chest non-tender, No respiratory distress, Rhonchi. negative: Wheezes, Rales Cardiovascular: positive: Regular rate & rhythm, No murmur, No gallop. negat vivian: Irregularly irregular, Extrasystoles, Tachycardia, PMI displaced laterally, JVD present, Systolic murmur, Diastolic murmur Peripheral Pulses: 2+ Radial (R), 2+ Radial (L), 2+ Dorsalis pedis (R), 2+ Dorsalis pedis (L) Abdomen: positive: Non-tender, No organomegaly, Nml bowel sounds, No distention. negative: Tenderness, Guarding, Rebound Back: positive: Nml inspection. negative: CVA tenderness (R), CVA tenderness (L) Skin: positive: Color nml, No rash, Warm, Dry. negative: Cyanosis, Diaphoresis, Pallor Extremities: positive: Non-tender, Full ROM, Nml appearance. negative: Calf tenderness, Joint swelling, Shiva's sign/cords Neurologic/Psychiatric: positive: Oriented x3, Motor nml, Sensation nml, Mood/affect nml. negative: Weakness, Sensory loss, Facial droop, Slurred/abnml speech, Depressed mood/affect - Lab Results Fish Bones: 04/26/18 04:45 04/26/18 04:45 Other Labs: Lab Results x24hrs 04/26/18 04/26/18 04/26/18 Range/Units 04:45 04:45 01:00 WBC 3.0 L (4.8-10.8) x10^3/uL RBC 3.30 L (4.20-5.40) 10^6/uL Hgb 10.1 L (12.0-16.0) g/dL Hct 30.0 L (37.0-47.0) % MCV 91.0 (81.0-99.0) fL MCH 30.5 (27.0-31.0) pg MCHC 33.5 (32.0-36.0) g/dL RDW 15.2 H (12.0-15.0) % Plt Count 144 (130-450) 10^3/uL MPV 7.5 L (7.9-10.8) fL Neut # (Auto) 2.9 (1.5-6.6) 10^3/uL Lymph # (Auto) 0.1 L (1.5-3.5) 10^3/uL Freestone # (Auto) 0.1 (0.0-1.0) 10^3/uL Eos # (Auto) 0.0 (0.0-0.7) 10^3/uL Baso # (Auto) 0.0 (0.0-0.1) 10^3/uL Absolute Nucleated RBC 0.00 x10^3/uL Nucleated RBC % 0.0 /100WBC Manual Slide Review WBC Morphology (NORMAL) Platelet Estimate (NORMAL) Platelet Morphology (NORMAL) RBC Morph Micro Appear (NORMAL) Sodium 120 L* (135-145) mmol/L Potassium 4.9 (3.5-5.0) mmol/L Chloride 86 L (101-111) mmol/L Carbon Dioxide 28 (21-32) mmol/L Anion Gap 6.0 (6-13) BUN 10 (6-20) mg/dL Creatinine 0.6 (0.4-1.0) mg/dL Estimated GFR (MDRD) 95 (>89) Glucose 145 H (70-100) mg/dL Lactic Acid (0.5-2.2) mmol/L Calcium 8.7 (8.5-10.3) mg/dL Total Bilirubin (0.2-1.0) mg/dL AST (10-42) IU/L ALT (10-60) IU/L Alkaline Phosphatase (42-121) IU/L Troponin I (<0.49) ng/mL B-Natriuretic Peptide (5-100) pg/mL Total Protein (6.7-8.2) g/dL Albumin (3.2-5.5) g/dL Globulin (2.1-4.2) g/dL Albumin/Globulin Ratio (1.0-2.2) Lipase (22-51) U/L Influenza A (Rapid) Negative (Negative) Influenza B (Rapid) Negative (Negative) 04/25/18 04/25/18 04/25/18 Range/Units 23:55 22:44 22:44 WBC (4.8-10.8) x10^3/uL RBC (4.20-5.40) 10^6/uL Hgb (12.0-16.0) g/dL Hct (37.0-47.0) % MCV (81.0-99.0) fL MCH (27.0-31.0) pg MCHC (32.0-36.0) g/dL RDW (12.0-15.0) % Plt Count (130-450) 10^3/uL MPV (7.9-10.8) fL Neut # (Auto) (1.5-6.6) 10^3/uL Lymph # (Auto) (1.5-3.5) 10^3/uL Fre[place] # (Auto) (0.0-1.0) 10^3/uL Eos # (Auto) (0.0-0.7) 10^3/uL Baso # (Auto) (0.0-0.1) 10^3/uL Absolute Nucleated RBC x10^3/uL Nucleated RBC % /100WBC Manual Slide Review WBC Morphology (NORMAL) Platelet Estimate (NORMAL) Platelet Morphology (NORMAL) RBC Morph Micro Appear (NORMAL) Sodium 116 L* (135-145) mmol/L Potassium 4.4 (3.5-5.0) mmol/L Chloride 84 L (101-111) mmol/L Carbon Dioxide 28 (21-32) mmol/L Anion Gap 4.0 L (6-13) BUN 10 (6-20) mg/dL Creatinine 0.6 (0.4-1.0) mg/dL Estimated GFR (MDRD) 95 (>89) Glucose 123 H (70-100) mg/dL Lactic Acid (0.5-2.2) mmol/L Calcium 8.7 (8.5-10.3) mg/dL Total Bilirubin 0.8 (0.2-1.0) mg/dL AST 20 (10-42) IU/L ALT 10 (10-60) IU/L Alkaline Phosphatase 63 (42-121) IU/L Troponin I < 0.04 (<0.49) ng/mL B-Natriuretic Peptide 791 H (5-100) pg/mL Total Protein 6.9 (6.7-8.2) g/dL Albumin 3.4 (3.2-5.5) g/dL Globulin 3.5 (2.1-4.2) g/dL Albumin/Globulin Ratio 1.0 (1.0-2.2) Lipase 26 (22-51) U/L Influenza A (Rapid) (Negative) Influenza B (Rapid) (Negative) 10/17/18 10/17/18 Range/Units 21:10 21:10 WBC 5.3 (4.8-10.8) x10^3/uL RBC 3.77 L (4.20-5.40) 10^6/uL Hgb 11.3 L (12.0-16.0) g/dL Hct 34.7 L (37.0-47.0) % MCV 92.0 (81.0-99.0) fL MCH 30.0 (27.0-31.0) pg MCHC 32.7 (32.0-36.0) g/dL RDW 15.4 H (12.0-15.0) % Plt Count 180 (130-450) 10^3/uL MPV 8.4 (7.9-10.8) fL Neut # (Auto) 4.7 (1.5-6.6) 10^3/uL Lymph # (Auto) 0.2 L (1.5-3.5) 10^3/uL Fre[place] # (Auto) 0.3 (0.0-1.0) 10^3/uL Eos # (Auto) 0.0 (0.0-0.7) 10^3/uL Baso # (Auto) 0.0 (0.0-0.1) 10^3/uL Absolute Nucleated RBC 0.00 x10^3/uL Nucleated RBC % 0.1 /100WBC Manual Slide Review Indicated WBC Morphology NORMAL APPEARANCE (NORMAL) Platelet Estimate NORMAL (130-450,000) (NORMAL) Platelet Morphology PLATELET CLUMPING (NORMAL) RBC Morph Micro Appear NORMAL APPEARANCE (NORMAL) Sodium (135-145) mmol/L Potassium (3.5-5.0) mmol/L Chloride (101-111) mmol/L Carbon Dioxide (21-32) mmol/L Anion Gap (6-13) BUN (6-20) mg/dL Creatinine (0.4-1.0) mg/dL Estimated GFR (MDRD) (>89) Glucose (70-100) mg/dL Lactic Acid 0.8 (0.5-2.2) mmol/L Calcium (8.5-10.3) mg/dL Total Bilirubin (0.2-1.0) mg/dL AST (10-42) IU/L ALT (10-60) IU/L Alkaline Phosphatase (42-121) IU/L Troponin I (<0.49) ng/mL B-Natriuretic Peptide (5-100) pg/mL Total Protein (6.7-8.2) g/dL Albumin (3.2-5.5) g/dL Globulin (2.1-4.2) g/dL Albumin/Globulin Ratio (1.0-2.2) Lipase (22-51) U/L Influenza A (Rapid) (Negative) Influenza B (Rapid) (Negative) ABX Reporting Has patient been on IV antibiotics over the past 48 hours?: Yes Assessment/Plan - Problem List (1) Pneumonia Impression: Conclusion/Plan: 04/26 CXR indicate pt has pneumonia continue ceftriaxone and azithromycin gently IV fluids Supplemental oxygen, Albuterol nebs as needed followup ECHO, since elevated BNP and pleural effusions. right mass in the lung is stable in CTA (2) Hyponatremia Conclusion/Plan: 04/26 Na increase to 120, continue IVF of NS recheck sodium (3) HTN (hypertension) Conclusion/Plan: stable, continue home meds (4) Chronic pain Conclusion/Plan: stable, Qualifiers: Pneumonia type: due to unspecified organism Laterality: right Lung location: lower lobe of lung Qualified Code(s): J18.1 - Lobar pneumonia, unspecified organism
[2018-04-26] MEDS: ACETAMINOPHEN 325 MG TABLET PO PRN ×2 (16:16→21:23)
[2018-04-26] MEDS: FUROSEMIDE 20 MG TABLET PO SCH (17:26)
[2018-04-26] MEDS ORDERED: SODIUM CHLORIDE 1 GM TABLET PO ONE (18:00)
[2018-04-26] MEDS: diphenhydrAMINE 25 MG CAPSULE PO PRN (19:37)
[2018-04-26] MEDS: ALBUTEROL NEB 2.5 MG/3 ML INH PRN ×2 (20:12→23:11)
[2018-04-26] MEDS: cefTRIAXone 2 GM in SODIUM CHLORIDE 0.9% MINIBAG 100 ML IV SCH (20:28)
[2018-04-26] MEDS: AZITHROMYCIN INJ 500 MG in SODIUM CHLORIDE 0.9% 250 ML IV SCH (21:23)
[2018-04-26] MEDS ORDERED: MORPHINE 2 MG/ML CARPUJECT IVP STA (22:54)
[2018-04-27] MEDS ORDERED: LORazepam 2 MG/ML VIAL IVP STA (00:45)
[2018-04-27] MEDS ORDERED: PHENOL THROAT SPRAY 177 ML MM PRN (05:17)
[2018-04-27] MEDS: oxyCODONE 5 MG TABLET PO PRN ×2 (05:30→22:13)
[2018-04-27 05:47] LABS: BASOPHILS % (AUTO) 0.3 %; HGB - HEMOGLOBIN 10.7 g/dL (12.0-16.0); LYMPHOCYTES # (AUTO) 0.3 10^3/uL (1.5-3.5); LYMPHOCYTES % (AUTO) 5.3 %; MEAN CORPUSCULAR HEMOGLOBIN 30.3 pg (27.0-31.0); MEAN CORPUSCULAR VOLUME 91.7 fL (81.0-99.0); MEAN PLATELET VOLUME 7.8 fL (7.9-10.8); MONOCYTES # (AUTO) 0.5 10^3/uL (0.0-1.0); MONOCYTES % (AUTO) 7.9 %; NEUTROPHILS # (AUTO) 5.1 10^3/uL (1.5-6.6); NEUTROPHILS % (AUTO) 86.5 %; PLT - PLATELET COUNT 198 10^3/uL (130-450); RED BLOOD COUNT 3.54 10^6/uL (4.20-5.40); RED CELL DISTRIBUTION WIDTH 15.3 % (12.0-15.0); WHITE BLOOD COUNT 5.9 x10^3/uL (4.8-10.8)
[2018-04-27] MEDS: SODIUM CHLORIDE FLUSH 0.9% 10 ML SYRINGE IVP SCH ×3 (05:55→16:40)
[2018-04-27 05:59] LABS: CALCIUM 8.9 mg/dL (8.5-10.3); CREATININE 0.7 mg/dL (0.4-1.0)
[2018-04-27] MEDS: PANTOPRAZOLE 40 MG TABLET PO SCH (06:03)
[2018-04-27] MEDS: diphenhydrAMINE 25 MG CAPSULE PO PRN (06:03)
[2018-04-27] MEDS ORDERED: BISACODYL 10 MG SUPP PR ONE (09:00)
[2018-04-27] MEDS ORDERED: SODIUM CHLORIDE 1 GM TABLET PO SCH (09:00)
[2018-04-27] MEDS ORDERED: SODIUM CHLORIDE 1 GM TABLET PO ONE (09:00)
--- NOTE | 2018-04-27 09:10 | XRAY Report ---
Reason: Worsening shortness of breath Procedure Date: 04/27/2018 Accession Number: [id number] / [id number] Procedure: XR - Chest 1 View X-Ray CPT Code: 22594 FULL RESULT: EXAM: CHEST RADIOGRAPHY EXAM DATE: 04/27/2018 08:58 AM. CLINICAL HISTORY: Shortness of breath. COMPARISON: CHEST 2 VIEW 04/25/2018 9:13 PM CHEST ANGIO 04/26/2018 2:18 AM. TECHNIQUE: 1 view. FINDINGS: Lungs/Pleura: There is slightly worsening lung aeration pattern including increasing interstitial markings which may be related to developing pulmonary edema. Pleural thickening and right mid to lower lung airspace disease is unchanged, primarily due to underlying small effusion. Mediastinum: Cardiac silhouette is enlarged. Heart and mediastinal contours are notable for aortic calcification. Other: None. IMPRESSION: 1. Slightly worsening lung aeration pattern with increasing interstitial markings which may represent developing pulmonary edema. 2. Small right pleural effusion and basilar airspace disease unchanged. No new opacity suggested. RADIA
[2018-04-27] MEDS: ALBUTEROL NEB 2.5 MG/3 ML INH PRN (11:28)
[2018-04-27] MEDS: SACCHAROMYCES BOULARDII 250 MG CAPSULE PO SCH ×2 (12:19→16:45)
[2018-04-27] MEDS: amLODIPine 5 MG TABLET PO SCH (12:21)
[2018-04-27] MEDS: FUROSEMIDE 20 MG TABLET PO SCH ×2 (12:23→14:00)
[2018-04-27] MEDS: ATENOLOL 25 MG TABLET PO SCH ×2 (12:23→21:14)
[2018-04-27 12:35] LABS: CORTISOL 4.6 ug/dL
[2018-04-27 12:39] LABS: THYROID STIMULATING HORMONE 2.98 uIU/mL (0.34-5.60)
[2018-04-27] MEDS: LOSARTAN 50 MG TABLET PO SCH (13:27)
[2018-04-27] MEDS: POLYETHYLENE GLYCOL 3350 17 GM PACKET PO SCH (13:41)
[2018-04-27] MEDS: ENOXAPARIN 40 MG/0.4 ML SYRINGE SUBQ SCH (13:42)
[2018-04-27] MEDS: BACITRACIN OINT TOP PRN ×2 (14:08→21:20)
--- NOTE | 2018-04-27 14:57 | PROVIDER PROGRESS NOTE ---
Subjective - Prog Note Date Prog Note Date: 04/27/18 - Subjective Pt reports feeling: Improved Subjective: pt report she feel some better today, but still weak and pain . she denies fever, chest pain Current Medications - Current Medications Current Medications: Active Medications Acetaminophen (Tylenol) 650 mg PO Q4HR PRN PRN Reason: Pain 1 to 4 Last Admin: 04/26/18 21:23 Dose: 650 mg Albuterol () 2.5 mg INH Q4HR PRN PRN Reason: Wheezing Last Admin: 04/27/18 11:28 Dose: 2.5 mg Amlodipine Besylate (Norvasc) 5 mg PO DAILY [facility] Last Admin: 04/27/18 12:21 Dose: Not Given Atenolol (Tenormin) 50 mg PO BID [facility] Last Admin: 04/27/18 12:23 Dose: Not Given Bacitracin (Bacitracin) 1 packet TOP PRN PRN PRN Reason: Skin Care Last Admin: 04/27/18 14:08 Dose: 1 packet Enoxaparin Sodium (Lovenox) 40 mg SUBQ DAILY [facility] Last Admin: 04/27/18 13:42 Dose: 40 mg Furosemide (Lasix) 20 mg PO DAILY [facility] Last Admin: 04/27/18 14:00 Dose: 20 mg Azithromycin 500 mg/ Sodium (Chloride) 250 mls @ 250 mls/hr IV Q24H [facility] Last Infusion: 04/26/18 22:39 Dose: Infused Ceftriaxone Sodium 2 gm/ (Sodium Chloride) 100 mls @ 200 mls/hr IV Q24H [facility] Last Infusion: 04/26/18 21:23 Dose: Infused Losartan Potassium (Cozaar) 100 mg PO DAILY [facility] Last Admin: 04/27/18 13:27 Dose: Not Given Ondansetron HCl (Zofran Inj) 4 mg IVP Q6HR PRN PRN Reason: Nausea / Vomiting Oxycodone HCl (Roxicodone) 5 mg PO Q4HR PRN PRN Reason: Pain 5 to 7 Last Admin: 04/26/18 09:45 Dose: 5 mg Oxycodone HCl (Roxicodone) 10 mg PO Q4HR PRN PRN Reason: Pain 8 to 10 Last Admin: 04/27/18 05:30 Dose: 10 mg Pantoprazole Sodium (Protonix) 40 mg PO QDAC [facility] Last Admin: 04/27/18 06:03 Dose: 40 mg Phenol/Menthol (Chloraseptic) 2 sprays MM Q2HR PRN PRN Reason: Throat Pain Last Admin: 04/27/18 05:38 Dose: 2 sprays Polyethylene Glycol (Miralax) 17 gm PO DAILY [facility] Last Admin: 04/27/18 13:41 Dose: Not Given Prochlorperazine Edisylate (Compazine Inj) 10 mg IVP Q6HR PRN PRN Reason: Nausea / Vomiting Saccharomyces Boulardii (Florastor) 250 mg PO BIDWM [facility] Last Admin: 04/27/18 12:19 Dose: Not Given Sodium Chloride (Normal Saline Flush 0.9%) 10 ml IVP PRN PRN PRN Reason: NEEDED PER PROVIDER ORDERS Sodium Chloride (Normal Saline Flush 0.9%) 10 ml IVP 0100,0900,1700 [facility] Last Admin: 04/27/18 14:03 Dose: 10 ml Losartan [Cozaar] 100 mg PO DAILY 05/23/14 amLODIPine [Norvasc] 5 mg PO DAILY 05/23/14 Acetaminophen [Tylenol Extra Strength] 1,000 mg PO TID 05/19/16 Atenolol 50 mg PO BID 09/01/16 DULoxetine [Cymbalta] 30 mg PO DAILY 04/26/18 oxyCODONE [Roxicodone] 5 mg PO Q4H PRN 04/26/18 Objective - Vital Signs/Intake & Output Reviewed Vital Signs: Yes Vital Signs: Vital Signs x48h Temp Pulse Pulse Resp BP Pulse Ox 04/27/18 12:35 36.5 C 16 122/64 96 04/27/18 11:30 34.9 C L 04/27/18 11:29 55 L 16 04/27/18 10:26 55 L 17 115/59 L 92 Intake & Output: Intake & Output 04/24/18 04/25/18 04/26/18 04/27/18 23:59 23:59 23:59 23:59 Intake Total 100 3176.667 670 Output Total 675 100 Balance 100 2501.667 570 - Objective General Appearance: positive: No acute distress, Alert. negative: Lethargic Eyes Bilateral: positive: Normal inspection, PERRL, No lid inflammation, Conjunctivae nml ENT: positive: ENT inspection nml, Pharynx nml, No signs of dehydration. negative: Purulent nasal drainage, Pharyngeal erythema, Oral lesions Neck: positive: Nml inspection, Thyroid nml, No JVD, Trachea midline. negative: Thyromegaly, Lymphadenopathy (R), Lymphadenopathy (L), Stiff neck, Tracheal deviation Respiratory: positive: Chest non-tender, No respiratory distress. negative: Wheezes, Rales, Rhonchi Cardiovascular: positive: Regular rate & rhythm, No murmur, No gallop, Irregularly irregular. negative: Extrasystoles, Tachycardia, Bradycardia, JVD present, Systolic murmur, Diastolic murmur Peripheral Pulses: 2+ Radial (R), 2+ Radial (L), 2+ Dorsalis pedis (R), 2+ Dorsalis pedis (L) Abdomen: positive: Non-tender, No organomegaly, Nml bowel sounds, No distention. negative: Tenderness, Guarding, Rebound Back: positive: Nml inspection. negative: CVA tenderness (R), CVA tenderness (L) Skin: positive: Color nml, No rash, Warm, Dry. negative: Cyanosis, Diaphoresis, Pallor Extremities: positive: Non-tender, Nml appearance. negative: Calf tenderness, Joint swelling, Shiva's sign/cords Neurologic/Psychiatric: positive: Oriented x3, Sensation nml, Mood/affect nml. negative: Weakness, Sensory loss, Facial droop, Slurred/abnml speech, Depressed mood/affect - Lab Results Fish Bones: 04/27/18 05:10 04/27/18 05:10 Other Labs: Lab Results x24hrs 04/27/18 04/27/18 04/27/18 Range/Units 05:10 05:10 05:10 WBC 5.9 (4.8-10.8) x10^3/uL RBC 3.54 L (4.20-5.40) 10^6/uL Hgb 10.7 L (12.0-16.0) g/dL Hct 32.5 L (37.0-47.0) % MCV 91.7 (81.0-99.0) fL MCH 30.3 (27.0-31.0) pg MCHC 33.0 (32.0-36.0) g/dL RDW 15.3 H (12.0-15.0) % Plt Count 198 (130-450) 10^3/uL MPV 7.8 L (7.9-10.8) fL Neut # (Auto) 5.1 (1.5-6.6) 10^3/uL Lymph # (Auto) 0.3 L (1.5-3.5) 10^3/uL [place] # (Auto) 0.5 (0.0-1.0) 10^3/uL Eos # (Auto) 0.0 (0.0-0.7) 10^3/uL Baso # (Auto) 0.0 (0.0-0.1) 10^3/uL Absolute Nucleated RBC 0.00 x10^3/uL Nucleated RBC % 0.1 /100WBC Sodium 120 L* (135-145) mmol/L Potassium 5.2 H (3.5-5.0) mmol/L Chloride 87 L (101-111) mmol/L Carbon Dioxide 27 (21-32) mmol/L Anion Gap 6.0 (6-13) BUN 13 (6-20) mg/dL Creatinine 0.7 (0.4-1.0) mg/dL Estimated GFR (MDRD) 80 L (>89) Glucose 122 H (70-100) mg/dL Calcium 8.9 (8.5-10.3) mg/dL TSH 2.98 (0.34-5.60) uIU/mL Cortisol 4.6 ug/dL 04/26/18 Range/Units 15:56 WBC (4.8-10.8) x10^3/uL RBC (4.20-5.40) 10^6/uL Hgb (12.0-16.0) g/dL Hct (37.0-47.0) % MCV (81.0-99.0) fL MCH (27.0-31.0) pg MCHC (32.0-36.0) g/dL RDW (12.0-15.0) % Plt Count (130-450) 10^3/uL MPV (7.9-10.8) fL Neut # (Auto) (1.5-6.6) 10^3/uL Lymph # (Auto) (1.5-3.5) 10^3/uL [place] # (Auto) (0.0-1.0) 10^3/uL Eos # (Auto) (0.0-0.7) 10^3/uL Baso # (Auto) (0.0-0.1) 10^3/uL Absolute Nucleated RBC x10^3/uL Nucleated RBC % /100WBC Sodium 119 L* (135-145) mmol/L Potassium (3.5-5.0) mmol/L Chloride (101-111) mmol/L Carbon Dioxide (21-32) mmol/L Anion Gap (6-13) BUN (6-20) mg/dL Creatinine (0.4-1.0) mg/dL Estimated GFR (MDRD) (>89) Glucose (70-100) mg/dL Calcium (8.5-10.3) mg/dL TSH (0.34-5.60) uIU/mL Cortisol ug/dL ABX Reporting Has patient been on IV antibiotics over the past 48 hours?: Yes Assessment/Plan - Problem List (1) Pneumonia Impression: Conclusion/Plan: 04/27 96% sats on 2 liter of O2, pt feels better today continue antibiotics monitor with lab and vital unremarkable ECHO 04/26 CXR indicate pt has pneumonia continue ceftriaxone and azithromycin gently IV fluids Supplemental oxygen, Albuterol nebs as needed followup ECHO, since elevated BNP and pleural effusions. right mass in the lung is stable in CTA (2) Hyponatremia Conclusion/Plan: 04/27 Na is 120 check: cortsol, TSH 0.5 gram NaCl start 75cc/h of NS lab monitor vital monitor 04/26 Na increase to 120, continue IVF of NS recheck sodium (3) HTN (hypertension) Conclusion/Plan: stable, continue home meds (4) Chronic pain Conclusion/Plan: stable, continue pain control (5) weakness consult with PT/OT (6) hypothermia nurse report pt's oral tem is 34.9. pt report she always feel cold check TSH, cortsol warming unit. recheck vital and monitor Qualifiers: Pneumonia type: due to unspecified organism Laterality: right Lung location: lower lobe of lung Qualified Code(s): J18.1 - Lobar pneumonia, unspecified organism
[2018-04-27] MEDS ORDERED: SODIUM CHLORIDE 0.9% 1,000 ML IV SCH (16:00)
[2018-04-27] MEDS: ACETAMINOPHEN 325 MG TABLET PO PRN (16:45)
[2018-04-27] MEDS: cefTRIAXone 2 GM in SODIUM CHLORIDE 0.9% MINIBAG 100 ML IV SCH (21:08)
[2018-04-27] MEDS: AZITHROMYCIN INJ 500 MG in SODIUM CHLORIDE 0.9% 250 ML IV SCH (22:11)
[2018-04-27] MEDS: SODIUM CHLORIDE FLUSH 0.9% 10 ML SYRINGE IVP PRN (22:13)
[2018-04-27] MEDS: methylPREDNISolone SUCCINATE 40 MG/ML VIAL IVP SCH (22:13)
[2018-04-28] MEDS: SODIUM CHLORIDE FLUSH 0.9% 10 ML SYRINGE IVP SCH ×4 (00:30→23:55)
[2018-04-28] MEDS: ALBUTEROL NEB 2.5 MG/3 ML INH PRN ×4 (04:15→20:04)
[2018-04-28 05:34] LABS: BASOPHILS % (AUTO) 0.4 %; HGB - HEMOGLOBIN 10.8 g/dL (12.0-16.0); LYMPHOCYTES # (AUTO) 0.1 10^3/uL (1.5-3.5); LYMPHOCYTES % (AUTO) 2.9 %; MEAN CORPUSCULAR HEMOGLOBIN 30.3 pg (27.0-31.0); MEAN CORPUSCULAR HGB CONC 32.8 g/dL (32.0-36.0); MEAN CORPUSCULAR VOLUME 92.7 fL (81.0-99.0); MEAN PLATELET VOLUME 7.9 fL (7.9-10.8); MONOCYTES # (AUTO) 0.1 10^3/uL (0.0-1.0); MONOCYTES % (AUTO) 1.4 %; NEUTROPHILS # (AUTO) 4.5 10^3/uL (1.5-6.6); NEUTROPHILS % (AUTO) 95.3 %; PLT - PLATELET COUNT 155 10^3/uL (130-450); RED BLOOD COUNT 3.57 10^6/uL (4.20-5.40); RED CELL DISTRIBUTION WIDTH 15.6 % (12.0-15.0); WHITE BLOOD COUNT 4.7 x10^3/uL (4.8-10.8)
[2018-04-28 05:37] LABS: CALCIUM 8.7 mg/dL (8.5-10.3); CREATININE 0.7 mg/dL (0.4-1.0)
[2018-04-28] MEDS: PANTOPRAZOLE 40 MG TABLET PO SCH (06:28)
[2018-04-28] MEDS: ACETAMINOPHEN 325 MG TABLET PO PRN ×4 (06:28→21:54)
[2018-04-28] MEDS: methylPREDNISolone SUCCINATE 40 MG/ML VIAL IVP SCH (06:28)
[2018-04-28] MEDS: BENZOCAINE/MENTHOL LOZENGE MM PRN ×2 (06:58→16:15)
[2018-04-28] MEDS: LOSARTAN 50 MG TABLET PO SCH (09:21)
[2018-04-28] MEDS: amLODIPine 5 MG TABLET PO SCH (09:22)
[2018-04-28] MEDS: guaiFENesin 600 MG TABLET PO SCH ×2 (09:22→21:06)
[2018-04-28] MEDS: ATENOLOL 25 MG TABLET PO SCH ×2 (09:22→21:06)
[2018-04-28] MEDS: SACCHAROMYCES BOULARDII 250 MG CAPSULE PO SCH ×2 (09:22→16:13)
[2018-04-28] MEDS: FUROSEMIDE 20 MG TABLET PO SCH (09:23)
[2018-04-28] MEDS: ENOXAPARIN 40 MG/0.4 ML SYRINGE SUBQ SCH (09:23)
[2018-04-28] MEDS: POLYETHYLENE GLYCOL 3350 17 GM PACKET PO SCH (13:21)
--- NOTE | 2018-04-28 15:41 | PROVIDER PROGRESS NOTE ---
Subjective - Prog Note Date Prog Note Date: 04/28/18 - Subjective Pt reports feeling: Improved Subjective: pt state she feel better today, and pt moved the chair but she report she is still weak. pt denies fever, chill, CP. Current Medications - Current Medications Current Medications: Active Medications Acetaminophen (Tylenol) 650 mg PO Q4HR PRN PRN Reason: Pain 1 to 4 Last Admin: 04/28/18 13:18 Dose: 650 mg Albuterol () 2.5 mg INH Q4HR PRN PRN Reason: Wheezing Last Admin: 04/28/18 15:28 Dose: 2.5 mg Amlodipine Besylate (Norvasc) 5 mg PO DAILY [facility] Last Admin: 04/28/18 09:22 Dose: 5 mg Atenolol (Tenormin) 50 mg PO BID [facility] Last Admin: 04/28/18 09:22 Dose: 50 mg Bacitracin (Bacitracin) 1 packet TOP PRN PRN PRN Reason: Skin Care Last Admin: 04/27/18 21:20 Dose: 1 packet Enoxaparin Sodium (Lovenox) 40 mg SUBQ DAILY [facility] Last Admin: 04/28/18 09:23 Dose: 40 mg Furosemide (Lasix) 20 mg PO DAILY [facility] Last Admin: 04/28/18 09:23 Dose: 20 mg Guaifenesin (Mucinex) 600 mg PO BID [facility] Last Admin: 04/28/18 09:22 Dose: 600 mg Azithromycin 500 mg/ Sodium (Chloride) 250 mls @ 250 mls/hr IV Q24H [facility] Last Infusion: 04/27/18 23:25 Dose: Infused Ceftriaxone Sodium 2 gm/ (Sodium Chloride) 100 mls @ 200 mls/hr IV Q24H [facility] Last Infusion: 04/27/18 21:40 Dose: Infused Losartan Potassium (Cozaar) 100 mg PO DAILY [facility] Last Admin: 04/28/18 09:21 Dose: 100 mg Ondansetron HCl (Zofran Inj) 4 mg IVP Q6HR PRN PRN Reason: Nausea / Vomiting Oxycodone HCl (Roxicodone) 5 mg PO Q4HR PRN PRN Reason: Pain 5 to 7 Last Admin: 04/27/18 22:13 Dose: 5 mg Oxycodone HCl (Roxicodone) 10 mg PO Q4HR PRN PRN Reason: Pain 8 to 10 Last Admin: 04/27/18 05:30 Dose: 10 mg Pantoprazole Sodium (Protonix) 40 mg PO QDAC [facility] Last Admin: 04/28/18 06:28 Dose: 40 mg Phenol/Menthol (Chloraseptic) 2 sprays MM Q2HR PRN PRN Reason: Throat Pain Last Admin: 04/27/18 05:38 Dose: 2 sprays Polyethylene Glycol (Miralax) 17 gm PO DAILY [facility] Last Admin: 04/28/18 13:21 Dose: 17 gm Prednisone (Deltasone) 40 mg PO DAILYWM [facility] Prochlorperazine Edisylate (Compazine Inj) 10 mg IVP Q6HR PRN PRN Reason: Nausea / Vomiting Saccharomyces Boulardii (Florastor) 250 mg PO BIDWM [facility] Last Admin: 04/28/18 09:22 Dose: 250 mg Sodium Chloride (Normal Saline Flush 0.9%) 10 ml IVP PRN PRN PRN Reason: NEEDED PER PROVIDER ORDERS Last Admin: 04/27/18 22:13 Dose: 10 ml Sodium Chloride (Normal Saline Flush 0.9%) 10 ml IVP 0100,0900,1700 [facility] Last Admin: 04/28/18 13:19 Dose: 10 ml Throat Lozenges (Cepacol) 1 lozenge MM Q2HR PRN PRN Reason: Throat pain Last Admin: 04/28/18 06:58 Dose: 1 lozenge Losartan [Cozaar] 100 mg PO DAILY 05/23/14 amLODIPine [Norvasc] 5 mg PO DAILY 05/23/14 Acetaminophen [Tylenol Extra Strength] 1,000 mg PO TID 05/19/16 Atenolol 50 mg PO BID 09/01/16 DULoxetine [Cymbalta] 30 mg PO DAILY 04/26/18 oxyCODONE [Roxicodone] 5 mg PO Q4H PRN 04/26/18 Objective - Vital Signs/Intake & Output Reviewed Vital Signs: Yes Vital Signs: Vital Signs x48h Temp Pulse Pulse Pulse Resp Resp BP 04/28/18 15:31 78 20 04/28/18 15:26 36.8 C 86 19 04/28/18 13:31 79 14 154/77 H 04/28/18 13:27 36.2 C L 75 22 04/28/18 08:08 78 22 04/28/18 07:53 36.7 C 71 19 BP Pulse Ox Pulse Ox 04/28/18 15:31 04/28/18 15:26 139/71 H 99 04/28/18 13:31 100 04/28/18 13:27 150/94 H 97 04/28/18 08:08 04/28/18 07:53 151/70 H 96 Intake & Output: Intake & Output 04/25/18 04/26/18 04/27/18 04/28/18 23:59 23:59 23:59 23:59 Intake Total 100 3176.667 1605 460 Output Total 273 893 9392 Balance 100 2501.667 1055 -2390 - Objective General Appearance: positive: No acute distress, Alert. negative: Lethargic Eyes Bilateral: positive: Normal inspection, PERRL, No lid inflammation, Conjunctivae nml ENT: positive: ENT inspection nml, Pharynx nml, No signs of dehydration. negative: Purulent nasal drainage, Pharyngeal erythema, Oral lesions Neck: positive: Nml inspection, Thyroid nml, No JVD, Trachea midline. negative: Thyromegaly, Lymphadenopathy (R), Lymphadenopathy (L), Stiff neck, Swelling/b ruising, Tracheal deviation Respiratory: positive: Chest non-tender, No respiratory distress. negative: Wheezes, Rales, Rhonchi Cardiovascular: positive: Regular rate & rhythm, No murmur, No gallop. negative: Irregularly irregular, Extrasystoles, Tachycardia, Bradycardia, JVD present, Systolic murmur, Diastolic murmur Peripheral Pulses: 2+ Radial (R), 2+ Radial (L), 2+ Dorsalis pedis (R), 2+ Dorsalis pedis (L) Abdomen: positive: Non-tender, No organomegaly, Nml bowel sounds, No distention. negative: Tenderness, Guarding, Rebound Back: positive: Nml inspection. negative: CVA tenderness (R), CVA tenderness (L) Skin: positive: Color nml, No rash, Warm, Dry. negative: Cyanosis, Diaphoresis, Pallor Extremities: positive: Non-tender, Full ROM, Nml appearance. negative: Calf tenderness, Joint swelling, Shiva's sign/cords Neurologic/Psychiatric: positive: Oriented x3, Sensation nml, Mood/affect nml. negative: Weakness, Sensory loss, Facial droop, Slurred/abnml speech, Depressed mood/affect - Lab Results Fish Bones: 04/28/18 05:05 04/28/18 05:05 Other Labs: Lab Results x24hrs 04/28/18 04/28/18 Range/Units 05:05 05:05 WBC 4.7 L (4.8-10.8) x10^3/uL RBC 3.57 L (4.20-5.40) 10^6/uL Hgb 10.8 L (12.0-16.0) g/dL Hct 33.1 L (37.0-47.0) % MCV 92.7 (81.0-99.0) fL MCH 30.3 (27.0-31.0) pg MCHC 32.8 (32.0-36.0) g/dL RDW 15.6 H (12.0-15.0) % Plt Count 155 (130-450) 10^3/uL MPV 7.9 (7.9-10.8) fL Neut # (Auto) 4.5 (1.5-6.6) 10^3/uL Lymph # (Auto) 0.1 L (1.5-3.5) 10^3/uL [place] # (Auto) 0.1 (0.0-1.0) 10^3/uL Eos # (Auto) 0.0 (0.0-0.7) 10^3/uL Baso # (Auto) 0.0 (0.0-0.1) 10^3/uL Absolute Nucleated RBC 0.00 x10^3/uL Nucleated RBC % 0.0 /100WBC Sodium 123 L (135-145) mmol/L Potassium 4.8 (3.5-5.0) mmol/L Chloride 90 L (101-111) mmol/L Carbon Dioxide 25 (21-32) mmol/L Anion Gap 8.0 (6-13) BUN 15 (6-20) mg/dL Creatinine 0.7 (0.4-1.0) mg/dL Estimated GFR (MDRD) 80 L (>89) Glucose 141 H (70-100) mg/dL Calcium 8.7 (8.5-10.3) mg/dL ABX Reporting Has patient been on IV antibiotics over the past 48 hours?: Yes Assessment/Plan - Problem List (1) Pneumonia Impression: Conclusion/Plan: 04/28 pt feel better breathing. 99% sats on 2.5 liter of O2 slight increase pulmonary edema, stop IVF, and continue lower dosage Lasix continue ceftriaxone and azithromycin right mass in the lung is stable in CTA 04/27 96% sats on 2 liter of O2, pt feels better today continue antibiotics monitor with lab and vital unremarkable ECHO 04/26 CXR indicate pt has pneumonia continue ceftriaxone and azithromycin gently IV fluids Supplemental oxygen, Albuterol nebs as needed followup ECHO, since elevated BNP and pleural effusions. right mass in the lung is stable in CTA (2) Hyponatremia Conclusion/Plan: 04/28 improved. Na 123 today continue low dosage of Prednisone continue Lab monitor 04/27 Na is 120 check: cortsol, TSH 0.5 gram NaCl start 75cc/h of NS lab monitor vital monitor 04/26 Na increase to 120, continue IVF of NS recheck sodium (3) HTN (hypertension) Conclusion/Plan: stable, continue home meds (4) Chronic pain Conclusion/Plan: stable, continue pain control (5) weakness 04/28 improved, pt walked with PT for a few step continue PT/OT consult with PT/OT (6) hypothermia improved. Cortisol test reveals low cortisol, clinic also indicate pt may have cortisol deficiency. 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 nurse report pt's oral tem is 34.9. pt report she always feel cold check TSH, cortsol warming unit. recheck vital and monitor Qualifiers: Pneumonia type: due to unspecified organism Laterality: right Lung location: lower lobe of lung Qualified Code(s): J18.1 - Lobar pneumonia, unspecified organism
[2018-04-28] MEDS: predniSONE 20 MG TABLET PO SCH (16:12)
[2018-04-28] MEDS: oxyCODONE 5 MG TABLET PO PRN ×2 (16:14→21:55)
[2018-04-28] MEDS: DOCUSATE SODIUM 250 MG CAPSULE PO SCH (17:55)
[2018-04-28] MEDS: SENNA 8.6 MG TABLET PO SCH (17:55)
[2018-04-28] MEDS: SODIUM CHLORIDE FLUSH 0.9% 10 ML SYRINGE IVP PRN ×2 (21:06→21:57)
[2018-04-28] MEDS: cefTRIAXone 2 GM in SODIUM CHLORIDE 0.9% MINIBAG 100 ML IV SCH (21:07)
[2018-04-28] MEDS: AZITHROMYCIN INJ 500 MG in SODIUM CHLORIDE 0.9% 250 ML IV SCH (21:55)
[2018-04-28] MEDS: BACITRACIN OINT TOP PRN (22:55)
[2018-04-29] MEDS: ALBUTEROL NEB 2.5 MG/3 ML INH PRN ×3 (00:12→20:35)
[2018-04-29 05:21] LABS: BASOPHILS % (AUTO) 0.2 %; EOSINOPHILS % (AUTO) 0.1 %; HGB - HEMOGLOBIN 10.9 g/dL (12.0-16.0); LYMPHOCYTES # (AUTO) 0.2 10^3/uL (1.5-3.5); LYMPHOCYTES % (AUTO) 3.7 %; MEAN CORPUSCULAR HEMOGLOBIN 30.4 pg (27.0-31.0); MEAN CORPUSCULAR HGB CONC 33.1 g/dL (32.0-36.0); MEAN CORPUSCULAR VOLUME 91.9 fL (81.0-99.0); MEAN PLATELET VOLUME 7.7 fL (7.9-10.8); MONOCYTES # (AUTO) 0.3 10^3/uL (0.0-1.0); MONOCYTES % (AUTO) 6.7 %; NEUTROPHILS # (AUTO) 3.9 10^3/uL (1.5-6.6); NEUTROPHILS % (AUTO) 89.3 %; PLT - PLATELET COUNT 147 10^3/uL (130-450); RED BLOOD COUNT 3.59 10^6/uL (4.20-5.40); RED CELL DISTRIBUTION WIDTH 15.4 % (12.0-15.0); WHITE BLOOD COUNT 4.4 x10^3/uL (4.8-10.8)
[2018-04-29 05:30] LABS: MAGNESIUM 1.4 mg/dL (1.7-2.8); PHOSPHORUS 2.2 mg/dL (2.5-4.6)
[2018-04-29] MEDS: PANTOPRAZOLE 40 MG TABLET PO SCH (05:58)
[2018-04-29] MEDS ORDERED: MAGNESIUM SULFATE 1 GM in SODIUM CHLORIDE 0.9% 50 ML IV ONE (07:27)
[2018-04-29 07:49] LABS: ALBUMIN 3.5 g/dL (3.2-5.5); BILIRUBIN,TOTAL 0.5 mg/dL (0.2-1.0); CALCIUM 8.9 mg/dL (8.5-10.3); CREATININE 0.6 mg/dL (0.4-1.0)
[2018-04-29] MEDS: guaiFENesin 600 MG TABLET PO SCH ×2 (09:19→21:28)
[2018-04-29] MEDS: FUROSEMIDE 20 MG TABLET PO SCH (09:19)
[2018-04-29] MEDS: predniSONE 20 MG TABLET PO SCH (09:19)
[2018-04-29] MEDS: POLYETHYLENE GLYCOL 3350 17 GM PACKET PO SCH (09:20)
[2018-04-29] MEDS: SACCHAROMYCES BOULARDII 250 MG CAPSULE PO SCH ×2 (09:21→16:22)
[2018-04-29] MEDS: amLODIPine 5 MG TABLET PO SCH (10:48)
[2018-04-29] MEDS: DOCUSATE SODIUM 250 MG CAPSULE PO SCH (10:49)
[2018-04-29] MEDS: ENOXAPARIN 40 MG/0.4 ML SYRINGE SUBQ SCH (10:54)
[2018-04-29] MEDS: ATENOLOL 25 MG TABLET PO SCH ×2 (10:56→21:27)
[2018-04-29] MEDS: NEUTRA-PHOS 250 MG TABLET PO SCH ×3 (11:04→16:22)
[2018-04-29] MEDS: SENNA 8.6 MG TABLET PO SCH (11:05)
[2018-04-29] MEDS: SODIUM CHLORIDE FLUSH 0.9% 10 ML SYRINGE IVP SCH ×2 (11:06→16:22)
[2018-04-29] MEDS: LOSARTAN 50 MG TABLET PO SCH (12:24)
[2018-04-29] MEDS: BACITRACIN OINT TOP PRN ×2 (12:27→22:19)
--- NOTE | 2018-04-29 14:49 | PROVIDER PROGRESS NOTE ---
Subjective - Prog Note Date Prog Note Date: 04/29/18 - Subjective Pt reports feeling: Improved Subjective: pt report she feel better than before but still weak. I discussed the CTA finding of her right lung mass which was no significant changing as before. pt state she knew this finding before, and has been under her PCP monitor Current Medications - Current Medications Current Medications: Active Medications Acetaminophen (Tylenol) 650 mg PO Q4HR PRN PRN Reason: Pain 1 to 4 Last Admin: 04/28/18 21:54 Dose: 650 mg Albuterol () 2.5 mg INH Q4HR PRN PRN Reason: Wheezing Last Admin: 04/29/18 07:30 Dose: 2.5 mg Amlodipine Besylate (Norvasc) 5 mg PO DAILY [facility] Last Admin: 04/29/18 10:48 Dose: 5 mg Atenolol (Tenormin) 50 mg PO BID [place] Last Admin: 04/29/18 10:56 Dose: Not Given Bacitracin (Bacitracin) 1 packet TOP PRN PRN PRN Reason: Skin Care Last Admin: 04/29/18 12:27 Dose: 1 packet Docusate Sodium (Colace 250mg Capsule) 250 - 500 mg PO DAILY [facility] Last Admin: 04/29/18 10:49 Dose: Not Given Enoxaparin Sodium (Lovenox) 40 mg SUBQ DAILY [facility] Last Admin: 04/29/18 10:54 Dose: 40 mg Furosemide (Lasix) 20 mg PO DAILY [facility] Last Admin: 04/29/18 09:19 Dose: 20 mg Guaifenesin (Mucinex) 600 mg PO BID [place] Last Admin: 04/29/18 09:19 Dose: 600 mg Azithromycin 500 mg/ Sodium (Chloride) 250 mls @ 250 mls/hr IV Q24H [facility] Last Infusion: 04/28/18 23:05 Dose: Infused Ceftriaxone Sodium 2 gm/ (Sodium Chloride) 100 mls @ 200 mls/hr IV Q24H [facility] Last Infusion: 04/28/18 21:45 Dose: Infused Losartan Potassium (Cozaar) 100 mg PO DAILY@1200 [place] Last Admin: 04/29/18 12:24 Dose: 100 mg Ondansetron HCl (Zofran Inj) 4 mg IVP Q6HR PRN PRN Reason: Nausea / Vomiting Oxycodone HCl (Roxicodone) 5 mg PO Q4HR PRN PRN Reason: Pain 5 to 7 Last Admin: 04/28/18 21:55 Dose: 5 mg Oxycodone HCl (Roxicodone) 10 mg PO Q4HR PRN PRN Reason: Pain 8 to 10 Last Admin: 04/27/18 05:30 Dose: 10 mg Pantoprazole Sodium (Protonix) 40 mg PO QDAC [facility] Last Admin: 04/29/18 05:58 Dose: 40 mg Phenol/Menthol (Chloraseptic) 2 sprays MM Q2HR PRN PRN Reason: Throat Pain Last Admin: 04/27/18 05:38 Dose: 2 sprays Polyethylene Glycol (Miralax) 17 gm PO DAILY [facility] Last Admin: 04/29/18 09:20 Dose: Not Given Prednisone (Deltasone) 40 mg PO DAILYWM [facility] Last Admin: 04/29/18 09:19 Dose: 40 mg Prochlorperazine Edisylate (Compazine Inj) 10 mg IVP Q6HR PRN PRN Reason: Nausea / Vomiting Saccharomyces Boulardii (Florastor) 250 mg PO BIDWM [facility] Last Admin: 04/29/18 09:21 Dose: 250 mg Senna (Senokot) 8.6 - 17.2 mg PO DAILY [facility] Last Admin: 04/29/18 11:05 Dose: Not Given Sodium Chloride (Normal Saline Flush 0.9%) 10 ml IVP PRN PRN PRN Reason: NEEDED PER PROVIDER ORDERS Last Admin: 04/28/18 21:57 Dose: 10 ml Sodium Chloride (Normal Saline Flush 0.9%) 10 ml IVP 0100,0900,1700 [facility] Last Admin: 04/29/18 11:06 Dose: 10 ml Sodium Phosphate (K-Phos Neutral) 250 mg PO TIDWM [facility] Last Admin: 04/29/18 12:27 Dose: 250 mg Throat Lozenges (Cepacol) 1 lozenge MM Q2HR PRN PRN Reason: Throat pain Last Admin: 04/28/18 16:15 Dose: 1 lozenge Losartan [Cozaar] 100 mg PO DAILY 05/23/14 amLODIPine [Norvasc] 5 mg PO DAILY 05/23/14 Acetaminophen [Tylenol Extra Strength] 1,000 mg PO TID 05/19/16 Atenolol 50 mg PO BID 09/01/16 DULoxetine [Cymbalta] 30 mg PO DAILY 04/26/18 oxyCODONE [Roxicodone] 5 mg PO Q4H PRN 04/26/18 Objective - Vital Signs/Intake & Output Reviewed Vital Signs: Yes Vital Signs: Vital Signs x48h Temp Pulse Pulse Resp BP Pulse Ox 04/29/18 08:00 36.5 C 81 20 132/76 H 97 04/29/18 07:44 78 20 04/29/18 07:38 36.4 C L 70 20 99 Intake & Output: Intake & Output 04/26/18 04/27/18 04/28/18 04/29/18 23:59 23:59 23:59 23:59 Intake Total 3176.667 1605 1950 492 Output Total 948 631 6734 1200 Balance 2501.667 1055 -1200 -708 - Objective General Appearance: positive: No acute distress, Alert. negative: Lethargic Eyes Bilateral: positive: Normal inspection, PERRL, No lid inflammation, Conjunctivae nml ENT: positive: ENT inspection nml, Pharynx nml, No signs of dehydration. negative: Purulent nasal drainage, Pharyngeal erythema, Oral lesions Neck: positive: Nml inspection, Thyroid nml, No JVD, Trachea midline. negative: Thyromegaly, Lymphadenopathy (R), Lymphadenopathy (L), Stiff neck, Swelling/bruising, Tracheal deviation Respiratory: positive: Chest non-tender, No respiratory distress, Breath sounds nml Cardiovascular: positive: Regular rate & rhythm, No murmur, No gallop. negative: Irregularly irregular, Extrasystoles, Tachycardia, Bradycardia, JVD present, Systolic murmur, Diastolic murmur Peripheral Pulses: 2+ Radial (R), 2+ Radial (L), 2+ Dorsalis pedis (R), 2+ Dorsalis pedis (L) Abdomen: positive: Non-tender, No organomegaly, Nml bowel sounds, No distention. negative: Tenderness, Guarding, Rebound Back: positive: Nml inspection. negative: CVA tenderness (R), CVA tenderness (L) Skin: positive: Color nml, No rash, Warm, Dry. negative: Cyanosis, Diaphoresis, Pallor Extremities: positive: Non-tender, Full ROM, Nml appearance. negative: Calf tenderness, Joint swelling, Shiva's sign/cords Neurologic/Psychiatric: positive: Oriented x3, Sensation nml, Mood/affect nml. negative: Weakness, Sensory loss, Facial droop, Slurred/abnml speech, Depressed mood/affect - Lab Results Fish Bones: 04/29/18 04:50 04/29/18 04:50 Other Labs: Lab Results x24hrs 04/29/18 04/29/18 04/29/18 Range/Units 04:50 04:50 04:50 WBC 4.4 L (4.8-10.8) x10^3/uL RBC 3.59 L (4.20-5.40) 10^6/uL Hgb 10.9 L (12.0-16.0) g/dL Hct 33.0 L (37.0-47.0) % MCV 91.9 (81.0-99.0) fL MCH 30.4 (27.0-31.0) pg MCHC 33.1 (32.0-36.0) g/dL RDW 15.4 H (12.0-15.0) % Plt Count 147 (130-450) 10^3/uL MPV 7.7 L (7.9-10.8) fL Neut # (Auto) 3.9 (1.5-6.6) 10^3/uL Lymph # (Auto) 0.2 L (1.5-3.5) 10^3/uL [place] # (Auto) 0.3 (0.0-1.0) 10^3/uL Eos # (Auto) 0.0 (0.0-0.7) 10^3/uL Baso # (Auto) 0.0 (0.0-0.1) 10^3/uL Absolute Nucleated RBC 0.00 x10^3/uL Nucleated RBC % 0.0 /100WBC Sodium 123 L (135-145) mmol/L Potassium 4.4 (3.5-5.0) mmol/L Chloride 86 L (101-111) mmol/L Carbon Dioxide 32 (21-32) mmol/L Anion Gap 5.0 L (6-13) BUN 13 (6-20) mg/dL Creatinine 0.6 (0.4-1.0) mg/dL Estimated GFR (MDRD) 95 (>89) Glucose 120 H (70-100) mg/dL Calcium 8.9 (8.5-10.3) mg/dL Phosphorus 2.2 L (2.5-4.6) mg/dL Magnesium 1.4 L (1.7-2.8) mg/dL Total Bilirubin 0.5 (0.2-1.0) mg/dL AST 26 (10-42) IU/L ALT 13 (10-60) IU/L Alkaline Phosphatase 58 (42-121) IU/L Total Protein 7.0 (6.7-8.2) g/dL Albumin 3.5 (3.2-5.5) g/dL Globulin 3.5 (2.1-4.2) g/dL Albumin/Globulin Ratio 1.0 (1.0-2.2) ABX Reporting Has patient been on IV antibiotics over the past 48 hours?: Yes Assessment/Plan - Problem List (1) Pneumonia Impression: 04/29 97% sats at 1 liter of O2, improved continue ceftriaxone and azithromycin 04/28 pt feel better breathing. 99% sats on 2.5 liter of O2 slight increase pulmonary edema, stop IVF, and continue lower dosage Lasix continue ceftriaxone and azithromycin right mass in the lung is stable in CTA 04/27 96% sats on 2 liter of O2, pt feels better today continue antibiotics monitor with lab and vital unremarkable ECHO 04/26 CXR indicate pt has pneumonia continue ceftriaxone and azithromycin gently IV fluids Supplemental oxygen, Albuterol nebs as needed followup ECHO, since elevated BNP and pleural effusions. right mass in the lung is stable in CTA (2) Hyponatremia Conclusion/Plan: 04/29 Na 123 continue 40 mg Prednisone daily continue Lab monitor 04/28 improved. Na 123 today continue low dosage of Prednisone continue Lab monitor 04/27 Na is 120 check: cortsol, TSH 0.5 gram NaCl start 75cc/h of NS lab monitor vital monitor 04/26 Na increase to 120, continue IVF of NS recheck sodium (3) HTN (hypertension) Conclusion/Plan: stable, continue home meds (4) Chronic pain Conclusion/Plan: stable, continue pain control (5) weakness 04/29, continue PT/OT 04/28 improved, pt walked with PT for a few step continue PT/OT consult with PT/OT (6) hypothermia 04/29 resolved improved. Cortisol test reveals low cortisol, clinic also indicate pt may have cortisol deficiency. 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 nurse report pt's oral tem is 34.9. pt report she always feel cold check TSH, cortsol warming unit. recheck vital and monitor Qualifiers: Pneumonia type: due to unspecified organism Laterality: right Lung location: lower lobe of lung Qualified Code(s): J18.1 - Lobar pneumonia, unspecified organism
[2018-04-29] MEDS: ACETAMINOPHEN 325 MG TABLET PO PRN ×2 (16:21→22:21)
[2018-04-29] MEDS: SODIUM CHLORIDE FLUSH 0.9% 10 ML SYRINGE IVP PRN ×2 (21:28→22:18)
[2018-04-29] MEDS: cefTRIAXone 2 GM in SODIUM CHLORIDE 0.9% MINIBAG 100 ML IV SCH (21:28)
[2018-04-29] MEDS: AZITHROMYCIN INJ 500 MG in SODIUM CHLORIDE 0.9% 250 ML IV SCH (22:17)
[2018-04-29] MEDS: oxyCODONE 5 MG TABLET PO PRN (22:20)
[2018-04-29] MEDS: BENZOCAINE/MENTHOL LOZENGE MM PRN (22:22)
[2018-04-30] MEDS: SODIUM CHLORIDE FLUSH 0.9% 10 ML SYRINGE IVP SCH ×3 (00:06→17:11)
[2018-04-30] MEDS: BENZOCAINE/MENTHOL LOZENGE MM PRN (03:26)
[2018-04-30 05:13] LABS: BASOPHILS % (AUTO) 0.5 %; EOSINOPHILS % (AUTO) 0.2 %; HGB - HEMOGLOBIN 12.2 g/dL (12.0-16.0); LYMPHOCYTES # (AUTO) 0.5 10^3/uL (1.5-3.5); LYMPHOCYTES % (AUTO) 6.8 %; MEAN CORPUSCULAR HEMOGLOBIN 30.3 pg (27.0-31.0); MEAN CORPUSCULAR HGB CONC 33.1 g/dL (32.0-36.0); MEAN CORPUSCULAR VOLUME 91.3 fL (81.0-99.0); MEAN PLATELET VOLUME 7.6 fL (7.9-10.8); MONOCYTES # (AUTO) 0.4 10^3/uL (0.0-1.0); MONOCYTES % (AUTO) 5.2 %; NEUTROPHILS # (AUTO) 6.9 10^3/uL (1.5-6.6); NEUTROPHILS % (AUTO) 87.3 %; PLT - PLATELET COUNT 160 10^3/uL (130-450); RED BLOOD COUNT 4.04 10^6/uL (4.20-5.40); RED CELL DISTRIBUTION WIDTH 15.9 % (12.0-15.0); WHITE BLOOD COUNT 7.9 x10^3/uL (4.8-10.8)
[2018-04-30 05:24] LABS: ALBUMIN 3.5 g/dL (3.2-5.5); ALBUMIN/GLOBULIN RATIO 0.9 (1.0-2.2); ALKALINE PHOSPHATASE 62 IU/L (42-121); ALT ALANINE AMINOTRANSFERASE 14 IU/L (10-60); AST ASPARTATE AMINOTRANSFERASE 26 IU/L (10-42); BILIRUBIN,TOTAL 0.6 mg/dL (0.2-1.0); BUN - BLOOD UREA NITROGEN 12 mg/dL (6-20); CALCIUM 9.2 mg/dL (8.5-10.3); CARBON DIOXIDE - CO2 32 mmol/L (21-32); CHLORIDE 85 mmol/L (101-111); CREATININE 0.6 mg/dL (0.4-1.0); GFR - MDRD 95 (>89); GLUCOSE 105 mg/dL (70-100); MAGNESIUM 1.4 mg/dL (1.7-2.8); PHOSPHORUS 2.3 mg/dL (2.5-4.6); SODIUM 127 mmol/L (135-145); TOTAL PROTEIN 7.3 g/dL (6.7-8.2)
[2018-04-30] MEDS: PANTOPRAZOLE 40 MG TABLET PO SCH (05:50)
[2018-04-30] MEDS: ACETAMINOPHEN 325 MG TABLET PO PRN ×2 (05:54→21:11)
[2018-04-30] MEDS: guaiFENesin 600 MG TABLET PO SCH ×2 (09:46→21:11)
[2018-04-30] MEDS: FUROSEMIDE 20 MG TABLET PO SCH (09:46)
[2018-04-30] MEDS: SACCHAROMYCES BOULARDII 250 MG CAPSULE PO SCH ×2 (09:46→17:08)
[2018-04-30] MEDS: predniSONE 20 MG TABLET PO SCH (09:46)
[2018-04-30] MEDS: ATENOLOL 25 MG TABLET PO SCH ×2 (09:47→21:11)
[2018-04-30] MEDS: NEUTRA-PHOS 250 MG TABLET PO SCH ×3 (09:47→17:08)
[2018-04-30] MEDS: DOCUSATE SODIUM 250 MG CAPSULE PO SCH (09:47)
[2018-04-30] MEDS: ENOXAPARIN 40 MG/0.4 ML SYRINGE SUBQ SCH (09:47)
[2018-04-30] MEDS: amLODIPine 5 MG TABLET PO SCH (09:47)
[2018-04-30] MEDS: SENNA 8.6 MG TABLET PO SCH (09:47)
[2018-04-30] MEDS: POLYETHYLENE GLYCOL 3350 17 GM PACKET PO SCH (09:47)
[2018-04-30] MEDS: LOSARTAN 50 MG TABLET PO SCH (12:36)
[2018-04-30] MEDS ORDERED: MAGNESIUM SULFATE 2 GRAM 2 GM/50 ML BAG IV ONE (14:18)
--- NOTE | 2018-04-30 14:28 | PROVIDER PROGRESS NOTE ---
Subjective - Prog Note Date Prog Note Date: 04/30/18 - Subjective Pt reports feeling: Improved Subjective: pt state she feel much improved than before but she is still very weakness, and easy to fall into sleep. No other complaints. Current Medications - Current Medications Current Medications: Active Medications Acetaminophen (Tylenol) 650 mg PO Q4HR PRN PRN Reason: Pain 1 to 4 Last Admin: 04/30/18 05:54 Dose: 650 mg Albuterol () 2.5 mg INH Q4HR PRN PRN Reason: Wheezing Last Admin: 04/29/18 20:35 Dose: 2.5 mg Amlodipine Besylate (Norvasc) 5 mg PO DAILY [facility] Last Admin: 04/30/18 09:47 Dose: 5 mg Atenolol (Tenormin) 50 mg PO BID [facility] Last Admin: 04/30/18 09:47 Dose: 50 mg Bacitracin (Bacitracin) 1 packet TOP PRN PRN PRN Reason: Skin Care Last Admin: 04/29/18 22:19 Dose: 1 packet Docusate Sodium (Colace 250mg Capsule) 250 - 500 mg PO DAILY [facility] Last Admin: 04/30/18 09:47 Dose: Not Given Enoxaparin Sodium (Lovenox) 40 mg SUBQ DAILY [facility] Last Admin: 04/30/18 09:47 Dose: 40 mg Furosemide (Lasix) 20 mg PO DAILY [facility] Last Admin: 04/30/18 09:46 Dose: 20 mg Guaifenesin (Mucinex) 600 mg PO BID [facility] Last Admin: 04/30/18 09:46 Dose: 600 mg Azithromycin 500 mg/ Sodium (Chloride) 250 mls @ 250 mls/hr IV Q24H [facility] Last Infusion: 04/29/18 23:25 Dose: Infused Ceftriaxone Sodium 2 gm/ (Sodium Chloride) 100 mls @ 200 mls/hr IV Q24H [facility] Last Infusion: 04/29/18 22:12 Dose: Infused Magnesium Sulfate (Magnesium Sulfate) 2 gm in 50 mls @ 50 mls/hr IV ONCE ONE Stop: 04/30/18 15:17 Losartan Potassium (Cozaar) 100 mg PO DAILY@1200 [place] Last Admin: 04/30/18 12:36 Dose: 100 mg Ondansetron HCl (Zofran Inj) 4 mg IVP Q6HR PRN PRN Reason: Nausea / Vomiting Oxycodone HCl (Roxicodone) 5 mg PO Q4HR PRN PRN Reason: Pain 5 to 7 Last Admin: 04/29/18 22:20 Dose: 5 mg Oxycodone HCl (Roxicodone) 10 mg PO Q4HR PRN PRN Reason: Pain 8 to 10 Last Admin: 04/27/18 05:30 Dose: 10 mg Pantoprazole Sodium (Protonix) 40 mg PO QDAC [facility] Last Admin: 04/30/18 05:50 Dose: 40 mg Phenol/Menthol (Chloraseptic) 2 sprays MM Q2HR PRN PRN Reason: Throat Pain Last Admin: 04/27/18 05:38 Dose: 2 sprays Polyethylene Glycol (Miralax) 17 gm PO DAILY [facility] Last Admin: 04/30/18 09:47 Dose: Not Given Prednisone (Deltasone) 40 mg PO DAILYWM [facility] Last Admin: 04/30/18 09:46 Dose: 40 mg Prochlorperazine Edisylate (Compazine Inj) 10 mg IVP Q6HR PRN PRN Reason: Nausea / Vomiting Saccharomyces Boulardii (Florastor) 250 mg PO BIDWM [facility] Last Admin: 04/30/18 09:46 Dose: 250 mg Senna (Senokot) 8.6 - 17.2 mg PO DAILY [facility] Last Admin: 04/30/18 09:47 Dose: Not Given Sodium Chloride (Normal Saline Flush 0.9%) 10 ml IVP PRN PRN PRN Reason: NEEDED PER PROVIDER ORDERS Last Admin: 04/29/18 22:18 Dose: 10 ml Sodium Chloride (Normal Saline Flush 0.9%) 10 ml IVP 0100,0900,1700 [facility] Last Admin: 04/30/18 09:47 Dose: 10 ml Sodium Phosphate (K-Phos Neutral) 250 mg PO TIDWM [facility] Last Admin: 04/30/18 12:36 Dose: 250 mg Throat Lozenges (Cepacol) 1 lozenge MM Q2HR PRN PRN Reason: Throat pain Last Admin: 04/30/18 03:26 Dose: 1 lozenge Losartan [Cozaar] 100 mg PO DAILY 05/23/14 amLODIPine [Norvasc] 5 mg PO DAILY 05/23/14 Acetaminophen [Tylenol Extra Strength] 1,000 mg PO TID 05/19/16 Atenolol 50 mg PO BID 09/01/16 DULoxetine [Cymbalta] 30 mg PO DAILY 04/26/18 oxyCODONE [Roxicodone] 5 mg PO Q4H PRN 04/26/18 Objective - Vital Signs/Intake & Output Reviewed Vital Signs: Yes Vital Signs: Vital Signs x48h Temp Pulse Pulse Pulse Resp Resp BP 04/30/18 11:40 36.9 C 74 17 04/30/18 11:15 79 67 14 154/77 H 04/30/18 07:51 37.3 C 71 17 BP BP Pulse Ox Pulse Ox 04/30/18 11:40 108/58 L 97 04/30/18 11:15 117/59 L 100 04/30/18 07:51 104/52 L 98 Intake & Output: Intake & Output 04/27/18 04/28/18 04/29/18 04/30/18 23:59 23:59 23:59 23:59 Intake Total 1605 1950 1142 800 Output Total 550 3150 2250 500 Balance 1055 -1200 -1108 300 - Objective General Appearance: positive: No acute distress, Alert. negative: Lethargic Eyes Bilateral: positive: Normal inspection, PERRL, No lid inflammation, Conjunctivae nml ENT: positive: ENT inspection nml, Pharynx nml, No signs of dehydration. negative: Purulent nasal drainage, Pharyngeal erythema, Oral lesions Neck: positive: Nml inspection, Thyroid nml, No JVD, Trachea midline. negative: Thyromegaly, Lymphadenopathy (R), Lymphadenopathy (L), Stiff neck, Swelling/bruising, Tracheal deviation Respiratory: positive: Chest non-tender, No respiratory distress, Breath sounds nml. negative: Wheezes, Rales, Rhonchi Cardiovascular: positive: Regular rate & rhythm, No murmur, No gallop. negative: Irregularly irregular, Extrasystoles, Tachycardia, Bradycardia, JVD present, Systolic murmur, Diastolic murmur Peripheral Pulses: 2+ Radial (R), 2+ Radial (L), 2+ Dorsalis pedis (R), 2+ Dorsalis pedis (L) Abdomen: positive: Non-tender, No organomegaly, Nml bowel sounds, No distention. negative: Tenderness, Guarding, Rebound Back: positive: Nml inspection. negative: CVA tenderness (R), CVA tenderness (L) Skin: positive: Color nml, No rash, Warm, Dry. negative: Cyanosis, Diaphoresis, Pallor Extremities: positive: Non-tender, Full ROM, Nml appearance. negative: Calf tenderness, Joint swelling, Shiva's sign/cords Neurologic/Psychiatric: positive: Sensation nml, Mood/affect nml. negative: Weakness, Sensory loss, Facial droop, Slurred/abnml speech, Depressed mood/af fect - Lab Results Fish Bones: 04/30/18 04:41 04/30/18 04:41 Other Labs: Lab Results x24hrs 04/30/18 04/30/18 Range/Units 04:41 04:41 WBC 7.9 (4.8-10.8) x10^3/uL RBC 4.04 L (4.20-5.40) 10^6/uL Hgb 12.2 (12.0-16.0) g/dL Hct 36.9 L (37.0-47.0) % MCV 91.3 (81.0-99.0) fL MCH 30.3 (27.0-31.0) pg MCHC 33.1 (32.0-36.0) g/dL RDW 15.9 H (12.0-15.0) % Plt Count 160 (130-450) 10^3/uL MPV 7.6 L (7.9-10.8) fL Neut # (Auto) 6.9 H (1.5-6.6) 10^3/uL Lymph # (Auto) 0.5 L (1.5-3.5) 10^3/uL [place] # (Auto) 0.4 (0.0-1.0) 10^3/uL Eos # (Auto) 0.0 (0.0-0.7) 10^3/uL Baso # (Auto) 0.0 (0.0-0.1) 10^3/uL Absolute Nucleated RBC 0.01 x10^3/uL Nucleated RBC % 0.1 /100WBC Sodium 127 L (135-145) mmol/L Potassium 3.6 (3.5-5.0) mmol/L Chloride 85 L (101-111) mmol/L Carbon Dioxide 32 (21-32) mmol/L Anion Gap 10.0 (6-13) BUN 12 (6-20) mg/dL Creatinine 0.6 (0.4-1.0) mg/dL Estimated GFR (MDRD) 95 (>89) Glucose 105 H (70-100) mg/dL Calcium 9.2 (8.5-10.3) mg/dL Ionized Calcium NO Phosphorus 2.3 L (2.5-4.6) mg/dL Magnesium 1.4 L (1.7-2.8) mg/dL Total Bilirubin 0.6 (0.2-1.0) mg/dL AST 26 (10-42) IU/L ALT 14 (10-60) IU/L Alkaline Phosphatase 62 (42-121) IU/L Total Protein 7.3 (6.7-8.2) g/dL Albumin 3.5 (3.2-5.5) g/dL Globulin 3.8 (2.1-4.2) g/dL Albumin/Globulin Ratio 0.9 L (1.0-2.2) ABX Reporting Has patient been on IV antibiotics over the past 48 hours?: Yes Assessment/Plan - Problem List (1) Pneumonia Impression: (1) Pneumonia Impression: 04/30 stable, after treatment, 97% sats at one liter of O2 continue antibiotics course 04/29 97% sats at 1 liter of O2, improved continue ceftriaxone and azithromycin 04/28 pt feel better breathing. 99% sats on 2.5 liter of O2 slight increase pulmonary edema, stop IVF, and continue lower dosage Lasix continue ceftriaxone and azithromycin right mass in the lung is stable in CTA 04/27 96% sats on 2 liter of O2, pt feels better today continue antibiotics monitor with lab and vital unremarkable ECHO 04/26 CXR indicate pt has pneumonia continue ceftriaxone and azithromycin gently IV fluids Supplemental oxygen, Albuterol nebs as needed followup ECHO, since elevated BNP and pleural effusions. right mass in the lung is stable in CTA (2) Hyponatremia Conclusion/Plan: 04/30 Na 127, improved. continue lower dosage of Prednisone continue lab monitor 04/29 Na 123 continue 40 mg Prednisone daily continue Lab monitor 04/28 improved. Na 123 today continue low dosage of Prednisone continue Lab monitor 04/27 Na is 120 check: cortsol, TSH 0.5 gram NaCl start 75cc/h of NS lab monitor vital monitor 04/26 Na increase to 120, continue IVF of NS recheck sodium (3) HTN (hypertension) Conclusion/Plan: stable, continue home meds (4) Chronic pain Conclusion/Plan: stable, continue pain control (5) weakness 04/30, pt is still very weak, need continue PT/OT. pt's TSH test is normal 04/29, continue PT/OT 04/28 improved, pt walked with PT for a few step continue PT/OT consult with PT/OT (6) hypothermia 04/29 resolved improved. Cortisol test reveals low cortisol, clinic also indicate pt may have cortisol deficiency. follow up [employer] as out-pt continue Prednisone. nurse report pt's oral tem is 34.9. pt report she always feel cold check TSH, cortsol warming unit. recheck vital and monitor Qualifiers: Pneumonia type: due to unspecified organism Laterality: right Lung location: lower lobe of lung Qualified Code(s): J18.1 - Lobar pneumonia, unspecified organism
[2018-04-30] MEDS: cefTRIAXone 2 GM in SODIUM CHLORIDE 0.9% MINIBAG 100 ML IV SCH (21:12)
[2018-04-30] MEDS: oxyCODONE 5 MG TABLET PO PRN (21:21)
[2018-04-30] MEDS: AZITHROMYCIN INJ 500 MG in SODIUM CHLORIDE 0.9% 250 ML IV SCH (21:49)
[2018-05-01] MEDS: SODIUM CHLORIDE FLUSH 0.9% 10 ML SYRINGE IVP SCH ×4 (00:23→23:52)
[2018-05-01 05:49] LABS: BASOPHILS % (AUTO) 0.1 %; EOSINOPHILS % (AUTO) 0.1 %; HGB - HEMOGLOBIN 11.4 g/dL (12.0-16.0); LYMPHOCYTES # (AUTO) 0.4 10^3/uL (1.5-3.5); LYMPHOCYTES % (AUTO) 2.8 %; MEAN CORPUSCULAR HEMOGLOBIN 30.1 pg (27.0-31.0); MEAN CORPUSCULAR HGB CONC 32.8 g/dL (32.0-36.0); MEAN CORPUSCULAR VOLUME 91.7 fL (81.0-99.0); MEAN PLATELET VOLUME 7.3 fL (7.9-10.8); MONOCYTES # (AUTO) 0.6 10^3/uL (0.0-1.0); MONOCYTES % (AUTO) 3.9 %; NEUTROPHILS # (AUTO) 13.8 10^3/uL (1.5-6.6); NEUTROPHILS % (AUTO) 93.1 %; PLT - PLATELET COUNT 125 10^3/uL (130-450); RED BLOOD COUNT 3.79 10^6/uL (4.20-5.40); RED CELL DISTRIBUTION WIDTH 15.6 % (12.0-15.0); WHITE BLOOD COUNT 14.8 x10^3/uL (4.8-10.8)
[2018-05-01 06:00] LABS: ALBUMIN 3.2 g/dL (3.2-5.5); ALKALINE PHOSPHATASE 48 IU/L (42-121); ALT ALANINE AMINOTRANSFERASE 13 IU/L (10-60); AST ASPARTATE AMINOTRANSFERASE 20 IU/L (10-42); BILIRUBIN,TOTAL 0.6 mg/dL (0.2-1.0); BUN - BLOOD UREA NITROGEN 12 mg/dL (6-20); CALCIUM 8.8 mg/dL (8.5-10.3); CARBON DIOXIDE - CO2 36 mmol/L (21-32); CHLORIDE 84 mmol/L (101-111); CREATININE 0.5 mg/dL (0.4-1.0); GFR - MDRD 117 (>89); GLUCOSE 92 mg/dL (70-100); MAGNESIUM 1.6 mg/dL (1.7-2.8); PHOSPHORUS 3.1 mg/dL (2.5-4.6); SODIUM 126 mmol/L (135-145); TOTAL PROTEIN 6.5 g/dL (6.7-8.2)
[2018-05-01] MEDS: PANTOPRAZOLE 40 MG TABLET PO SCH (06:47)
[2018-05-01] MEDS: ATENOLOL 25 MG TABLET PO SCH (08:53)
[2018-05-01] MEDS: SACCHAROMYCES BOULARDII 250 MG CAPSULE PO SCH ×2 (08:53→16:29)
[2018-05-01] MEDS: DOCUSATE SODIUM 250 MG CAPSULE PO SCH (08:53)
[2018-05-01] MEDS: POLYETHYLENE GLYCOL 3350 17 GM PACKET PO SCH (08:53)
[2018-05-01] MEDS: NEUTRA-PHOS 250 MG TABLET PO SCH ×3 (08:53→16:29)
[2018-05-01] MEDS: oxyCODONE 5 MG TABLET PO PRN ×3 (08:53→22:54)
[2018-05-01] MEDS: amLODIPine 5 MG TABLET PO SCH (08:53)
[2018-05-01] MEDS: predniSONE 20 MG TABLET PO SCH (08:54)
[2018-05-01] MEDS: ENOXAPARIN 40 MG/0.4 ML SYRINGE SUBQ SCH (08:54)
[2018-05-01] MEDS: guaiFENesin 600 MG TABLET PO SCH (08:54)
[2018-05-01] MEDS: SENNA 8.6 MG TABLET PO SCH (08:54)
[2018-05-01] MEDS: FUROSEMIDE 20 MG TABLET PO SCH (08:54)
[2018-05-01] MEDS: ALBUTEROL NEB 2.5 MG/3 ML INH PRN (11:06)
[2018-05-01] MEDS: LOSARTAN 50 MG TABLET PO SCH (11:53)
--- NOTE | 2018-05-01 13:03 | PROVIDER PROGRESS NOTE ---
Subjective - Prog Note Date Prog Note Date: 05/01/18 Prog Note Time: 13:01 - Subjective Pt reports feeling: Improved Subjective: Page complains about potentially going to [place] as she would just rather return home. She states that she has very low energy lately and still requires oxygen. She denies current chest pain, rashes, bleeding, new pain, vomiting, or worsening shortness of breath. She states that she normally does not require home oxygen, and her cough is dry, but she feels like her chest is congested. Current Medications - Current Medications Current Medications: Active Medications Acetaminophen (Tylenol) 650 mg PO Q4HR PRN PRN Reason: Pain 1 to 4 Last Admin: 05/01/18 18:14 Dose: 650 mg Bacitracin (Bacitracin) 1 packet TOP PRN PRN PRN Reason: Skin Care Last Admin: 04/29/18 22:19 Dose: 1 packet Docusate Sodium (Colace 250mg Capsule) 250 - 500 mg PO DAILY [facility] Last Admin: 05/01/18 08:53 Dose: 250 mg Enoxaparin Sodium (Lovenox) 40 mg SUBQ DAILY [facility] Last Admin: 05/01/18 08:54 Dose: Not Given Furosemide (Lasix) 20 mg PO DAILY [facility] Last Admin: 05/01/18 08:54 Dose: 20 mg Guaifenesin (Mucinex) 600 mg PO BID PRN PRN Reason: Cough Azithromycin 500 mg/ Sodium (Chloride) 250 mls @ 250 mls/hr IV Q24H [facility] Last Infusion: 04/30/18 22:54 Dose: Infused Ceftriaxone Sodium 2 gm/ (Sodium Chloride) 100 mls @ 200 mls/hr IV Q24H [facility] Last Infusion: 04/30/18 21:48 Dose: Infused Levalbuterol HCl (Xopenex) 1.25 mg INH Q4H PRN PRN Reason: Shortness of Air/Wheezing Levalbuterol HCl (Xopenex) 1.25 mg INH RTTID [facility] Losartan Potassium (Cozaar) 50 mg PO DAILY@1200 [place] Magnesium Oxide (Mag Ox) 400 mg PO BIDWM [facility] Last Admin: 05/01/18 18:14 Dose: 400 mg Metoprolol Succinate (Toprol Xl) 25 mg PO BIDWM [facility] Ondansetron HCl (Zofran Inj) 4 mg IVP Q6HR PRN PRN Reason: Nausea / Vomiting Oxycodone HCl (Roxicodone) 5 mg PO Q4HR PRN PRN Reason: Pain 5 to 7 Last Admin: 04/29/18 22:20 Dose: 5 mg Oxycodone HCl (Roxicodone) 10 mg PO Q4HR PRN PRN Reason: Pain 8 to 10 Last Admin: 05/01/18 18:13 Dose: 10 mg Pantoprazole Sodium (Protonix) 40 mg PO QDAC [facility] Last Admin: 05/01/18 06:47 Dose: 40 mg Phenol/Menthol (Chloraseptic) 2 sprays MM Q2HR PRN PRN Reason: Throat Pain Last Admin: 04/27/18 05:38 Dose: 2 sprays Polyethylene Glycol (Miralax) 17 gm PO DAILY [facility] Last Admin: 05/01/18 08:53 Dose: 17 gm Prednisone (Deltasone) 20 mg PO DAILYWM [facility] Prochlorperazine Edisylate (Compazine Inj) 10 mg IVP Q6HR PRN PRN Reason: Nausea / Vomiting Saccharomyces Boulardii (Florastor) 250 mg PO BIDWM [facility] Last Admin: 05/01/18 16:29 Dose: 250 mg Senna (Senokot) 8.6 mg PO DAILY [facility] Sodium Chloride (Normal Saline Flush 0.9%) 10 ml IVP PRN PRN PRN Reason: NEEDED PER PROVIDER ORDERS Last Admin: 04/29/18 22:18 Dose: 10 ml Sodium Chloride (Normal Saline Flush 0.9%) 10 ml IVP 0100,0900,1700 [facility] Last Admin: 05/01/18 08:53 Dose: 10 ml Spironolactone (Aldactone) 25 mg PO DAILY [facility] Throat Lozenges (Cepacol) 1 lozenge MM Q2HR PRN PRN Reason: Throat pain Last Admin: 04/30/18 03:26 Dose: 1 lozenge Losartan [Cozaar] 100 mg PO DAILY 05/23/14 amLODIPine [Norvasc] 5 mg PO DAILY 05/23/14 Acetaminophen [Tylenol Extra Strength] 1,000 mg PO TID 05/19/16 Atenolol 50 mg PO BID 09/01/16 DULoxetine [Cymbalta] 30 mg PO DAILY 04/26/18 oxyCODONE [Roxicodone] 5 mg PO Q4H PRN 04/26/18 Objective - Vital Signs/Intake & Output Reviewed Vital Signs: Yes Vital Signs: Vital Signs x48h Temp Pulse Pulse Resp BP Pulse Ox 05/01/18 11:06 72 14 05/01/18 08:00 36.4 C L 82 16 161/81 H 95 Intake & Output: Intake & Output 04/28/18 04/29/18 04/30/18 05/01/18 23:59 23:59 23:59 23:59 Intake Total 1950 1142 1730 400 Output Total 3150 2250 500 1000 Balance -1200 -1108 1230 -600 - Objective General Appearance: positive: Alert, Anxious Eyes Bilateral: positive: PERRL Eyes: OU Conjunctivae pale, OU Scleral icterus ENT: positive: Dry mucous membranes Neck: positive: Thyroid nml, No JVD Respiratory: positive: Chest non-tender, Wheezes, Rhonchi Cardiovascular: positive: Irregularly irregular, Tachycardia, Systolic murmur, Decreased pulse(s) Peripheral Pulses: 1+ Radial (R), 1+ Radial (L) Abdomen: positive: Non-tender, Nml bowel sounds Back: positive: Nml inspection Skin: positive: No rash, Warm, Dry, Pallor Extremities: positive: Non-tender, Full ROM, Nml appearance Neurologic/Psychiatric: positive: CN's nml (2-12), Motor nml, Sensation nml, Disoriented to time, Weakness, Sensory loss, Depressed mood/affect Reflexes: Bicep (R): 2+, Bicep (L): 2+ - Lab Results Fish Bones: 05/01/18 05:30 05/01/18 05:30 Other Labs: Lab Results x24hrs 05/01/18 05/01/18 Range/Units 05:30 05:30 WBC 14.8 H (4.8-10.8) x10^3/uL RBC 3.79 L (4.20-5.40) 10^6/uL Hgb 11.4 L (12.0-16.0) g/dL Hct 34.8 L (37.0-47.0) % MCV 91.7 (81.0-99.0) fL MCH 30.1 (27.0-31.0) pg MCHC 32.8 (32.0-36.0) g/dL RDW 15.6 H (12.0-15.0) % Plt Count 125 L (130-450) 10^3/uL MPV 7.3 L (7.9-10.8) fL Neut # (Auto) 13.8 H (1.5-6.6) 10^3/uL Lymph # (Auto) 0.4 L (1.5-3.5) 10^3/uL [place] # (Auto) 0.6 (0.0-1.0) 10^3/uL Eos # (Auto) 0.0 (0.0-0.7) 10^3/uL Baso # (Auto) 0.0 (0.0-0.1) 10^3/uL Absolute Nucleated RBC 0.01 x10^3/uL Nucleated RBC % 0.1 /100WBC Sodium 126 L (135-145) mmol/L Potassium 3.1 L (3.5-5.0) mmol/L Chloride 84 L (101-111) mmol/L Carbon Dioxide 36 H (21-32) mmol/L Anion Gap 6.0 (6-13) BUN 12 (6-20) mg/dL Creatinine 0.5 (0.4-1.0) mg/dL Estimated GFR (MDRD) 117 (>89) Glucose 92 (70-100) mg/dL Calcium 8.8 (8.5-10.3) mg/dL Ionized Calcium NO Phosphorus 3.1 (2.5-4.6) mg/dL Magnesium 1.6 L (1.7-2.8) mg/dL Total Bilirubin 0.6 (0.2-1.0) mg/dL AST 20 (10-42) IU/L ALT 13 (10-60) IU/L Alkaline Phosphatase 48 (42-121) IU/L Total Protein 6.5 L (6.7-8.2) g/dL Albumin 3.2 (3.2-5.5) g/dL Globulin 3.3 (2.1-4.2) g/dL Albumin/Globulin Ratio 1.0 (1.0-2.2) ABX Reporting Has patient been on IV antibiotics over the past 48 hours?: Yes Assessment/Plan - Problem List (1) Pneumonia Impression: A chest CT indicates bilateral pleural effusions, right greater than left and no pleural effusions. She has been prescribed both Azithromycin and Rocephin IV, which continue. She has bilateral crackles on exam. She has been dependent on oxygen since admission, and continues on 2L per nasal cannula. Plan: Continue with IV treatment, xopenex nebs, oxygen and she may need a [facility] oxygen de-sat study prior to discharge. Qualifiers: Pneumonia type: due to unspecified organism Laterality: right Lung locat ion: lower lobe of lung Qualified Code(s): J18.1 - Lobar pneumonia, unspecified organism (2) Fall Impression: The patient admits to a recent fall back in March, and fractured a few ribs. 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 She has undergone physical therapy evaluations while, who recommends a short rehab stay to encourage further strength building to prevent falls. Plan: Fall precautions, treat PNA. Qualifiers: Encounter type: subsequent encounter Qualified Code(s): W19.XXXD - Unspe cified fall, subsequent encounter (3) Pulmonary hypertension Impression: Final echo results from 04/26/18 show moderate pulmonary hypertension with an RVSP at rest of 53 mmHg. On exam, she is found to have an increased abdominal girth and is dependent on oxygen. She has been prescribed Spironolactone to start in the AM, which may also help her HTN treatment. Plan: Continue to treat with Spironolactone and oxygen. (4) Tachycardia Impression: The patient had many complicating factors that may be causing this. She has been prescribed Atenolol, which has been changed to metroprolol, albuterol that has been changed to Xopenex and she had Muscinex scheduled, now changed to PRN. On my exam, she is noted to have an irregular rate, and states that she feels that her heart is racing at times. She has also been on more than usual prednisone due to her ongoing hyponatremia. This tachycardia, may be contribut ing to her ongoing fatigue. Plan: Continue medication changes, obtain an EKG, and monitor vital signs. (5) Hx of breast cancer Impression: The patient states that she had a left breast mastectomy about 9 years ago, and there is a sign above her bed as to not using her LUE for blood draws. She is not thought to have had any complications since that time. Plan: Continue care. (6) Chronic pain Impression: The patient is prescribed daily oxycodone, and this continues here. She states that she just broke 3 ribs in March, and has chronic back and bilateral shoulder pain due to arthritis. Plan: Continue to treat pain and encourage movement, PT/OT daily. Qualifiers: Chronic pain type: other chronic pain Qualified Code(s): G89.29 - Other chronic pain (7) Hyponatremia Impression: The patient is hovering around 127-126 for her most recent sodium serum levels. She was given increased prednisone, IVFs, and her pneumonia has been treated. She was also on a phosphorous replacement, now discontinued. She continues to be fatigued, and is now showing more signs of intolerance, so her prednisone was reduced, her muscinex was changed to PRN and the lasix was changed to spironolactone today. Plan: Check daily labs, and watch for increased confusion. (8) HTN (hypertension) Impression: The patient is prescribed Losartan, atenolol and norvasc at home. She has consequently had electrolyte difficulties, so I have made some adjustments. Since atenolol is contraindicated for those with long disease, I have changed this to Metroprolol succinate, reduced her losartan and discontinued the norvasc. Plan: Continue to monitor VS, give new medications, and monitor daily labs. Qualifiers: Hypertension type: essential hypertension Qualified Code(s): I10 - Essential (primary) hypertension
[2018-05-01] MEDS ORDERED: LEVALBUTEROL 1.25 MG/3 ML NEB INH PRN (17:49)
[2018-05-01] MEDS ORDERED: guaiFENesin 600 MG TABLET PO PRN (17:53)
[2018-05-01] MEDS: ACETAMINOPHEN 325 MG TABLET PO PRN ×2 (18:14→22:54)
[2018-05-01] MEDS: MAGNESIUM OXIDE 400 MG TABLET PO SCH (18:14)
[2018-05-01] MEDS ORDERED: oxyCODONE 5 MG TABLET PO PRN (18:19)
[2018-05-01] MEDS: LEVALBUTEROL 1.25 MG/3 ML NEB INH SCH (20:35)
[2018-05-01] MEDS: SODIUM CHLORIDE FLUSH 0.9% 10 ML SYRINGE IVP PRN (21:06)
[2018-05-01] MEDS: cefTRIAXone 2 GM in SODIUM CHLORIDE 0.9% MINIBAG 100 ML IV SCH (21:06)
[2018-05-01] MEDS: AZITHROMYCIN INJ 500 MG in SODIUM CHLORIDE 0.9% 250 ML IV SCH (21:58)
[2018-05-01] MEDS: BACITRACIN OINT TOP PRN (23:55)
[2018-05-01] MEDS: BENZOCAINE/MENTHOL LOZENGE MM PRN (23:58)
[2018-05-02 05:22] LABS: BASOPHILS % (AUTO) 0.1 %; EOSINOPHILS % (AUTO) 0.1 %; HGB - HEMOGLOBIN 11.2 g/dL (12.0-16.0); LYMPHOCYTES # (AUTO) 0.4 10^3/uL (1.5-3.5); LYMPHOCYTES % (AUTO) 3.4 %; MEAN CORPUSCULAR HEMOGLOBIN 30.1 pg (27.0-31.0); MEAN CORPUSCULAR HGB CONC 33.2 g/dL (32.0-36.0); MEAN CORPUSCULAR VOLUME 90.7 fL (81.0-99.0); MEAN PLATELET VOLUME 7.7 fL (7.9-10.8); MONOCYTES # (AUTO) 0.6 10^3/uL (0.0-1.0); NEUTROPHILS # (AUTO) 10.8 10^3/uL (1.5-6.6); NEUTROPHILS % (AUTO) 91.4 %; PLT - PLATELET COUNT 132 10^3/uL (130-450); RED BLOOD COUNT 3.71 10^6/uL (4.20-5.40); RED CELL DISTRIBUTION WIDTH 15.8 % (12.0-15.0); WHITE BLOOD COUNT 11.9 x10^3/uL (4.8-10.8)
[2018-05-02 05:39] LABS: ALBUMIN 3.2 g/dL (3.2-5.5); ALBUMIN/GLOBULIN RATIO 0.9 (1.0-2.2); ALKALINE PHOSPHATASE 42 IU/L (42-121); ALT ALANINE AMINOTRANSFERASE 12 IU/L (10-60); AST ASPARTATE AMINOTRANSFERASE 19 IU/L (10-42); BILIRUBIN,TOTAL 0.5 mg/dL (0.2-1.0); BUN - BLOOD UREA NITROGEN 14 mg/dL (6-20); CALCIUM 8.9 mg/dL (8.5-10.3); CARBON DIOXIDE - CO2 35 mmol/L (21-32); CHLORIDE 81 mmol/L (101-111); CREATININE 0.7 mg/dL (0.4-1.0); GFR - MDRD 80 (>89); GLUCOSE 119 mg/dL (70-100); SODIUM 126 mmol/L (135-145); TOTAL PROTEIN 6.6 g/dL (6.7-8.2)
[2018-05-02] MEDS: PANTOPRAZOLE 40 MG TABLET PO SCH (06:00)
[2018-05-02] MEDS ORDERED: POTASSIUM CHLORIDE 20 MEQ/15 ML UDC PO ONE (08:00)
[2018-05-02] MEDS: MAGNESIUM OXIDE 400 MG TABLET PO SCH ×2 (09:09→16:28)
[2018-05-02] MEDS: SPIRONOLACTONE 25 MG TABLET PO SCH (09:09)
[2018-05-02] MEDS: DULoxetine 30 MG CAPSULE PO SCH ×2 (09:09→09:10)
[2018-05-02] MEDS: predniSONE 20 MG TABLET PO SCH (09:10)
[2018-05-02] MEDS: SACCHAROMYCES BOULARDII 250 MG CAPSULE PO SCH ×2 (09:11→16:28)
[2018-05-02] MEDS: METOPROLOL SUCCINATE 25 MG TABLET PO SCH ×2 (09:12→16:28)
[2018-05-02] MEDS: oxyCODONE 5 MG TABLET PO PRN (09:13)
[2018-05-02] MEDS: ENOXAPARIN 40 MG/0.4 ML SYRINGE SUBQ SCH (09:13)
[2018-05-02] MEDS: SODIUM CHLORIDE FLUSH 0.9% 10 ML SYRINGE IVP SCH ×3 (09:14→22:32)
[2018-05-02] MEDS: DOCUSATE SODIUM 250 MG CAPSULE PO SCH (09:15)
[2018-05-02] MEDS: POLYETHYLENE GLYCOL 3350 17 GM PACKET PO SCH (09:15)
[2018-05-02] MEDS: SENNA 8.6 MG TABLET PO SCH (09:15)
[2018-05-02] MEDS: LEVALBUTEROL 1.25 MG/3 ML NEB INH SCH ×3 (11:10→19:59)
--- NOTE | 2018-05-02 12:21 | Discharge Plan ---
"Discharge Plan for SNF / [facility] - Discharge Plan And Transition Orders Disposition: 03 SNF DC/Xfer Condition: Good Allergies and Adverse Reactions: Allergies Allergy/AdvReac Type Severity Reaction Status Date / Time lisinopril Allergy Severe Anaphylaxis Verified 12/09/17 16:31 ciprofloxacin [From Cipro] Allergy Unknown Unknown Verified 12/09/17 16:31 ciprofloxacin HCl * Allergy Unknown Unknown Verified 12/09/17 16:31 [From Cipro] Sulfa (Sulfonamide Allergy Unknown Unknown Verified 12/09/17 16:31 Antibiotics) - SNF / [facility] Transition Orders Admit to (Facility): Care Age of [age] Under the care of (Name): Dr. Tovar Discharge Diagnosis: CAP (community acquired pneumonia) (J18.9) new on this admission, treatment to continue with oral antibiotics. Hyponatremia (E87.1) chronic, improved. Hypertension (I10) chronic, some medication changes based on latest echo. Chronic back pain (M54.9) chronic, scheduled and PRN meds. Fall (W19.XXXA) chronic, no falls here, but last fall was in March when she fractured 3 ribs. Pulmonary hypertension (I27.20) new on this admit, medication changes. Tachycardia (R00.0) ongoing, medication changes. History of breast cancer in adulthood (Z85.3) chronic, stable. Weakness (R53.1) ongoing, progressive with rehab potential. Medicare Certification Statement: I certify that [facility] care is medically necessary on a continuing basis for any of the conditions for which she/he is receiving care during hospitalization. Notify PCP of admission and forward orders to primary provider for signature. Weight on admission and: Weekly Other Notification Orders: Call PCP immediately if patient develops dyspnea, chest pain/tightness or edema. House Bowel Program: Yes Additional Bowel Program Orders: If no BM after 2 days, nurse may give M.O.M. 30ml PO PRN and/or ducolax Supp [address] CT and/or JULI 250mg P.O., and/or senna 1-2 tabs PO. On day 3 nurse may give repeat above order until residents constipation is resolved. Annual Influenza Vaccine (between Mar 10 and October 07): Yes Two-step PPD per [facility] [id number] or approved exception documents: Yes Oxygen Orders: Administer 2-3L per nasal cannula to keep oxygen saturation greater than 92%. Lab Tests or X-ray Orders: Check BMP within one week. Medication Orders: PLEASE REFER TO THE DISCHARGE MEDICATION LIST. Insulin Orders?: No - Medications New Prescriptions: Acetaminophen [Tylenol Extra Strength] 500 mg PO TID #90 tablet amLODIPine [Norvasc] 5 mg PO DAILY #30 tablet Azithromycin [Zithromax] 250 mg PO DAILY #6 tablet Levalbuterol [Xopenex] 1.25 mg INH Q4H PRN #90 neb PRN Reason: Wheezing Lidocaine Patch 5% [Lidoderm Patch] 1 patch TOP DAILY PRN #20 patch PRN Reason: Pain Losartan [Cozaar] 50 mg PO DAILY@1200 #30 tablet oxyCODONE [Roxicodone] 5 mg PO Q4H PRN #25 tablet PRN Reason: Pain Pantoprazole [Protonix] 40 mg PO QDAC #30 tablet Senna [Senokot] 8.6 mg PO DAILY #30 tablet Spironolactone [Aldactone] 25 mg PO DAILY #30 tablet - Diet Type: Geriatric Texture: Regular Liquids: Thin May have monthly special meal: Yes - Therapies | Activity Therapy: Evaluation | Treat if indicated: PT, OT Rehabilitation Potential: Maximize functional status, Return to independent living, Maintain present ADL Functional Activity: Activity as Tolerated Weight Bearing: Full Weight Assistance Devices: Walker"
[2018-05-02] MEDS: LOSARTAN 50 MG TABLET PO SCH (12:54)
--- NOTE | 2018-05-02 13:30 | DISCHARGE SUMMARY ---
Discharge Summary Admit Date: 04/25/18 Discharge Date: 05/03/18 Discharging Provider: JENELLE Allen Primary Care Provider: Theodore Angela Code Status: Do Not Attempt Resuscitation Condition at Discharge: Fair Discharge Disposition: Home Health Service Discharge Facility Name: [facility] Age of [age] - DIAGNOSES Admission Diagnoses: Pneumonia, unspecified organism (J18.9) Hypo-osmolality and hyponatremia (E87.1) Essential (primary) hypertension (I10) Dorsalgia, unspecified (M54.9) Discharge Diagnoses with Status of Each Condition: CAP (community acquired pneumonia) (J18.9) new on this admission, treatment to continue with oral antibiotics. COPD (chronic obstructive pulmonary disease) (J44.9) chronic, LABA and xopenex sent to the pharmacy, home oxygen qualification. Requires continuous at home supplemental oxygen (Z99.81) new on this admission, respiratory therapy handling the establishment of home oxygen. Hyponatremia (E87.1) chronic, improved. Hypertension (I10) chronic, some medication changes based on latest echo. Chronic back pain (M54.9) chronic, scheduled and PRN meds. Fall (W19.XXXA) chronic, no falls here, but last fall was in March when she fractured 3 ribs. Pulmonary hypertension (I27.20) new on this admit, medication changes. Tachycardia (R00.0) ongoing, medication changes. History of breast cancer in adulthood (Z85.3) chronic, stable. Weakness (R53.1) ongoing, progressive with rehab potential. - HPI History of Present Illness: HPI per Dr. Avila: Patient is an 87-year-old female with a past medical history significant for chronic alcohol use, chronic back pain status post 3 failed laminectomies, hypertension, history of left breast cancer stage II no longer on treatment and history of peptic ulcer disease who presented to the emergency department with a chief complaint of shortness of breath and cough. The patient states that she was in her normal state of health until 2 weeks ago when she got her flu shot. She states a few days later she began feeling ill. She states that she had symptoms of coughing and upper respiratory congestion. She states that 5 days ago she went to see her primary care physician who placed her on antibiotics. She was given 3 days of antibiotics and states that it made no difference in her symptoms. She states that over the last 2 days her symptoms have been pro gressing. She states that she has been having increasing cough without any sputum production. She also states that she has been having increasing shortness of breath. She states that she tried to take a nebulizer treatment at home but had no improvement. She tried calling her primary care physician however no one called back therefore she called 911 and was brought to the emergency department. The patient denies any orthopnea or PND. She does admit to nausea this morning and decreased appetite for the last several days. She also states that she has been eating and drinking less than normal due to her poor appetite and nausea. She states that she is normally a daily drinker but has not been drinking for the last few days because she has been feeling sick. She denies any history of alcohol withdrawal. She denies any chest pain or palpitations. The patient does admit to chronic back pain and has been having increasing generalized weakness over the last few days. Patient denies any headache, blurred vision, runny nose, sore throat, difficulty swallowing, increased lower extremity swelling, abdominal pain, vomiting, diarrhea, constipation, urinary urgency, urinary frequency, dysuria, increased joint swelling, neck stiffness, hair loss, skin rashes, skin changes, night swea ts, polyuria, polydipsia or any focal neurologic deficits. On presentation to the emergency department the patient was hypoxic and was brought in on oxygen. The patient was down to 83% on room air but was saturating at around 95% with 2 L of oxygen. The patient was otherwise afebrile and not in significant respiratory distress. The patient's lab work did not reveal a leukocytosis but patient was hyponatremic with a sodium of 116. The patient's lactic acid was negative and she did have an elevated BNP of 791. The patient did undergo a chest x-ray which showed bilateral pleural effusions right greater than left and focal haziness concerning for infiltrates in the lateral left midlung and right base. According to the pneumonia severity index calculator the patient scores 95 points which puts her at a risk class IV with a 8.2-9.3% mortality and hospitalization is recommended based on this risk. The patient was admitted to the medical diallo for treatment of community-acquired pneumonia. - HOSPITAL COURSE Hospital Course: (1) Pneumonia A chest CT indicates bilateral pleural effusions, right greater than left and no pleural effusions. She has been prescribed both Azithromycin and Rocephin IV, which continue. She has bilateral crackles on exam, that are improved today. She has been dependent on oxygen since admission, and continues on 2L per nasal cannula. The patient was continued on IV treatment, xopenex nebs, oxygen and on discharge, failed a walking de-saturation test. Prescriptions were sent to the pharmacy for a home nebulizer machine, LABA, and xopenex as needed. She should also continue her PO antibiotics at home. (2) Fall The patient admits to a recent fall back in March, and fractured a few ribs. 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 She has undergone physical therapy evaluations while, who recommends a short rehab stay to encourage further strength building to prevent falls. The patient was continued on fall precautions and treated for her pneumonia. (3) Pulmonary hypertension Final echo results from 04/26/18 show moderate pulmonary hypertension with an RVSP at rest of 53 mmHg. On exam, she is found to have an increased abdominal girth and is dependent on oxygen. She has been prescribed Spironolactone, which may also help her HTN treatment. (4) Tachycardia The patient had many complicating factors that may be causing this. She has been prescribed Atenolol, which has been changed to metroprolol, albuterol that has been changed to Xopenex and she had Muscinex scheduled, now changed to PRN. On my exam, she is noted to have an irregular rate, and states that she feels that her heart is racing at times. She has also been on more than usual prednisone due to her ongoing hyponatremia, but I have resumed her lower home dose. This tachycardia, may be contributing to her ongoing fatigue. (5) Hx of breast cancer The patient states that she had a left breast mastectomy about 9 years ago, and there is a sign above her bed as to not using her LUE for blood draws. She is not thought to have had any complications since that time. (6) Chronic pain The patient is prescribed daily oxycodone, and this continues here. She states that she just broke 3 ribs in March, and has chronic back and bilateral shoulder pain due to arthritis. Continue to treat pain and encourage movement, PT/OT daily per home health services. (7) Hyponatremia The patient is hovering around 127-126 for her most recent sodium serum levels. She was given increased prednisone, IVFs, and her pneumonia has been treated. She was also on a phosphorous replacement, now discontinued. She continues to be fatigued, and is now showing more signs of intolerance, so her prednisone was reduced, her muscinex was changed to PRN and the lasix was changed to spironolactone. Prior to discharge the patient continued to have hyponatremia, so salt tablets were given x1. She should follow up with her PCP within one week. (8) HTN (hypertension) The patient is prescribed Losartan, atenolol and norvasc at home. She has consequently had electrolyte difficulties, so I have made some adjustments. Since atenolol is contraindicated for those with lung disease, I have changed this to Metroprolol succinate, reduced her losartan and discontinued the norvasc. (9) COPD The patient has a history of this, but denies any tobacco abuse currently and has been an ex-smoker for the past 15 years. On exam she demonstrates a barrel chest appearance. She has not previously been on any home therapies such as LABA/rescue inhalers. She has required oxygen during her entire hospital stay and was treated with nebulizers, and IV antibiotics. A walking oxygen saturation test was performed by respiratory therapy; a [id number] exam was completed and results revealed to the patient included; The patient was hypoxic at rest with a room air oxygen saturation of 88%. A rest on 2L per nasal cannula saturations improved to 94%, and with ambulation on 2L nasal cannula sats were 92%. I am ordering home oxygen at 2L per minute via nasal cannula to be worn continuously. Disposition: The patient was medically stable and it has been recommended to be discharged to a SNF for further rehab, but since insurance did not give approval she was sent home via private car with home health services for ongoing PT/OT and a bath aide. - ALLERGIES Allergies/Adverse Reactions: Allergies Allergy/AdvReac Type Severity Reaction Status Date / Time lisinopril Allergy Severe Anaphylaxis Verified 12/09/17 16:31 ciprofloxacin [From Cipro] Allergy Unknown Unknown Verified 12/09/17 16:31 ciprofloxacin HCl * Allergy Unknown Unknown Verified 12/09/17 16:31 [From Cipro] Sulfa (Sulfonamide Allergy Unknown Unknown Verified 12/09/17 16:31 Antibiotics) - MEDICATIONS Home Medications: Ambulatory Orders Medication Instructions Recorded Confirmed Acetaminophen [Tylenol Extra 500 mg PO TID #90 tablet 05/02/18 Strength] Azithromycin [Zithromax] 250 mg PO DAILY #6 tablet 05/02/18 DULoxetine [Cymbalta] 30 mg PO DAILY #30 05/02/18 04/26/18 Levalbuterol [Xopenex] 1.25 mg INH Q4H PRN #90 neb 05/02/18 Lidocaine Patch 5% [Lidoderm Patch] 1 patch TOP DAILY PRN #20 patch 05/02/18 Losartan [Cozaar] 50 mg PO DAILY@1200 #30 tablet 05/02/18 Pantoprazole [Protonix] 40 mg PO QDAC #30 tablet 05/02/18 Senna [Senokot] 8.6 mg PO DAILY #30 tablet 05/02/18 Spironolactone [Aldactone] 25 mg PO DAILY #30 tablet 05/02/18 amLODIPine [Norvasc] 5 mg PO DAILY #30 tablet 05/02/18 oxyCODONE [Roxicodone] 5 mg PO Q4H PRN #25 tablet 05/02/18 Budesonide [Pulmicort] 0.5 mg INH BID #60 neb 05/03/18 Nebulizer and Compressor [Easy Air 1 each MC QID #1 each 05/03/18 Compressor Nebulizer] - PHYSICAL EXAM AT DISCHARGE General Appearance: positive: No acute distress, Alert Eyes Bilateral: positive: PERRL ENT: positive: Pharynx nml, No signs of dehydration Neck: positive: Thyroid nml, No JVD, Trachea midline Respiratory: positive: Chest non-tender, No respiratory distress, Other (diminshed with scattered crackles.) Cardiovascular: positive: Regular rate & rhythm, No gallop, Irregularly irregular, Systolic murmur Peripheral Pulses: positive: 2+ Abdomen: positive: Non-tender, Nml bowel sounds, Other (rounded, firm-stable) Back: positive: Nml inspection Skin: positive: No rash, Warm, Dry, Pallor Extremities: positive: Non-tender, Full ROM, Pedal edema (right greater than left, BLE) Neurologic/Psychiatric: positive: Oriented x3, CN's nml (2-12), Motor nml, Sensation nml, Weakness, Depressed mood/affect Reflexes: Bicep (R): 3+, Bicep (L): 3+ - LABS Result Diagrams: 05/03/18 04:30 05/03/18 04:30 - DIAGNOSTIC IMAGING Diagnostic Imaging Results: Final report reviewed Diagnostic Imaging Results Comments: EXAM: CHEST RADIOGRAPHY EXAM DATE: 04/25/2018 09:35 PM. IMPRESSION: 1. Bilateral pleural effusions, right greater than left. 2. Focal haziness concerning for infiltrates, lateral left midlung and right base. 3. Cardiomegaly. EXAM: CT ANGIOGRAM CHEST EXAM DATE: 04/26/2018 02:41 AM. IMPRESSION: 1. No evidence for pulmonary emboli. No evidence for aortic dissection. 2. 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 3. Bilateral pleural effusions, right greater than left, with contiguous zones of atelectasis unchanged. ECHOCARDIOGRAM: Final read by Rogelio Atkinson MD 1. Mild concentric LVH with normal systolic function, EF 60%. The LA is mildly dilated. 2. Mild mitral regurg. 3. Moderate pulmonary HTN, PASP 53 mmHg. The RV is normal in size. 4. Mildly dilated ascending aorta, 3.8 cm. - FOLLOW UP Follow Up: Disposition: Home Health Service Condition: Fair Prescriptions: Acetaminophen [Tylenol Extra Strength] 500 mg PO TID #90 tablet amLODIPine [Norvasc] 5 mg PO DAILY #30 tablet Azithromycin [Zithromax] 250 mg PO DAILY #6 tablet Budesonide [Pulmicort] 0.5 mg INH BID #60 neb Levalbuterol [Xopenex] 1.25 mg INH Q4H PRN #90 neb PRN Reason: Wheezing Lidocaine Patch 5% [Lidoderm Patch] 1 patch TOP DAILY PRN #20 patch PRN Reason: Pain Losartan [Cozaar] 50 mg PO DAILY@1200 #30 tablet Nebulizer and Compressor [Easy Air Compressor Nebulizer] 1 each MC QID #1 each oxyCODONE [Roxicodone] 5 mg PO Q4H PRN #25 tablet PRN Reason: Pain Pantoprazole [Protonix] 40 mg PO QDAC #30 tablet Senna [Senokot] 8.6 mg PO DAILY #30 tablet Spironolactone [Aldactone] 25 mg PO DAILY #30 tablet Diet: Regular Activity Restrictions: Activity as Tolerated Shower Restrictions: No Driving Restrictions: Yes Assistance Devices: Walker Weight Bearing: Full Weight Instruction Topics: Lidocaine dermal patch, Azithromycin tablets, Pneumonia Additional Instructions or Follow Up instructions: You were admitted for pneumonia and your oxygen level was very low. You were given IV antibiotics, steroids, and breathing treatments. A walking oxygen test was performed as you will likely require home oxygen and the final result shows that you qualify for oxygen to be worn continuously at 2L per nasal cannula. Our physical therapist recommends a short stay at [facility] for further rehab, but due to insurance reasons, you will instead be sent home with home health services to have physical and occupational therapies. You were found to have a condition which creates swelling and increased pressure to the right side of your heart, so I have made some medication changes to help out with this. The beta catarina that you were on is not the best choice for those with lung disease, so this was changed to a long acting metropolol. Please see your PCP within one week. - TIME SPENT Time Spent in Discharge (Minutes): 55
[2018-05-02] MEDS ORDERED: LIDOCAINE PATCH 5% TOP PRN (14:00)
--- NOTE | 2018-05-02 19:57 | PROVIDER PROGRESS NOTE ---
Subjective - Prog Note Date Prog Note Date: 05/02/18 Prog Note Time: 10:30 - Subjective Pt reports feeling: Improved Subjective: Page is looking forward to moving to [facility] for further rehab. She denies increased shortness of breath, nausea, fevers, chills, dizziness, vomiting, diarrhea, rashes, bleeding or a new cough. Current Medications - Current Medications Current Medications: Active Medications Acetaminophen (Tylenol) 650 mg PO Q4HR PRN PRN Reason: Pain 1 to 4 Last Admin: 05/01/18 22:54 Dose: 650 mg Bacitracin (Bacitracin) 1 packet TOP PRN PRN PRN Reason: Skin Care Last Admin: 05/01/18 23:55 Dose: 1 packet Docusate Sodium (Colace 250mg Capsule) 250 - 500 mg PO DAILY [facility] Last Admin: 05/02/18 09:15 Dose: Not Given Duloxetine HCl (Cymbalta) 30 mg PO DAILY [facility] Last Admin: 05/02/18 09:10 Dose: 30 mg Enoxaparin Sodium (Lovenox) 40 mg SUBQ DAILY [facility] Last Admin: 05/02/18 09:13 Dose: 40 mg Guaifenesin (Mucinex) 600 mg PO BID PRN PRN Reason: Cough Last Admin: 05/01/18 21:06 Dose: 600 mg Azithromycin 500 mg/ Sodium (Chloride) 250 mls @ 250 mls/hr IV Q24H [facility] Last Infusion: 05/01/18 22:58 Dose: Infused Ceftriaxone Sodium 2 gm/ (Sodium Chloride) 100 mls @ 200 mls/hr IV Q24H [facility] Last Infusion: 05/01/18 21:57 Dose: Infused Levalbuterol HCl (Xopenex) 1.25 mg INH Q4H PRN PRN Reason: Shortness of Air/Wheezing Levalbuterol HCl (Xopenex) 1.25 mg INH RTTID [facility] Last Admin: 05/02/18 15:20 Dose: 1.25 mg Lidocaine (Lidoderm Patch) 1 patch TOP DAILY PRN PRN Reason: PAIN Last Admin: 05/02/18 14:00 Dose: 1 patch Losartan Potassium (Cozaar) 50 mg PO DAILY@1200 [place] Last Admin: 05/02/18 12:54 Dose: 50 mg Magnesium Oxide (Mag Ox) 400 mg PO BIDWM [facility] Last Admin: 05/02/18 16:28 Dose: 400 mg Metoprolol Succinate (Toprol Xl) 25 mg PO BIDWM [facility] Last Admin: 05/02/18 16:28 Dose: 25 mg Ondansetron HCl (Zofran Inj) 4 mg IVP Q6HR PRN PRN Reason: Nausea / Vomiting Oxycodone HCl (Roxicodone) 5 mg PO Q4HR PRN PRN Reason: Pain 5 to 7 Last Admin: 05/02/18 09:13 Dose: 5 mg Oxycodone HCl (Roxicodone) 10 mg PO Q4HR PRN PRN Reason: Pain 8 to 10 Last Admin: 05/01/18 22:54 Dose: 10 mg Pantoprazole Sodium (Protonix) 40 mg PO QDAC [facility] Last Admin: 05/02/18 06:00 Dose: 40 mg Phenol/Menthol (Chloraseptic) 2 sprays MM Q2HR PRN PRN Reason: Throat Pain Last Admin: 04/27/18 05:38 Dose: 2 sprays Polyethylene Glycol (Miralax) 17 gm PO DAILY [facility] Last Admin: 05/02/18 09:15 Dose: Not Given Prednisone (Deltasone) 20 mg PO DAILYWM [facility] Last Admin: 05/02/18 09:10 Dose: 20 mg Prochlorperazine Edisylate (Compazine Inj) 10 mg IVP Q6HR PRN PRN Reason: Nausea / Vomiting Saccharomyces Boulardii (Florastor) 250 mg PO BIDWM [facility] Last Admin: 05/02/18 16:28 Dose: 250 mg Senna (Senokot) 8.6 mg PO DAILY [facility] Last Admin: 05/02/18 09:15 Dose: Not Given Sodium Chloride (Normal Saline Flush 0.9%) 10 ml IVP PRN PRN PRN Reason: NEEDED PER PROVIDER ORDERS Last Admin: 05/01/18 21:06 Dose: 10 ml Sodium Chloride (Normal Saline Flush 0.9%) 10 ml IVP 0100,0900,1700 [facility] Last Admin: 05/02/18 17:41 Dose: Not Given Spironolactone (Aldactone) 25 mg PO DAILY [facility] Last Admin: 05/02/18 09:09 Dose: 25 mg Throat Lozenges (Cepacol) 1 lozenge MM Q2HR PRN PRN Reason: Throat pain Last Admin: 05/01/18 23:58 Dose: 1 lozenge Objective - Vital Signs/Intake & Output Reviewed Vital Signs: Yes Vital Signs: Vital Signs x48h Temp Pulse Pulse Resp BP Pulse Ox 05/02/18 16:00 36.3 C L 98 17 115/63 99 05/02/18 15:20 89 14 05/02/18 12:55 163/79 H Intake & Output: Intake & Output 04/29/18 04/30/18 05/01/18 05/02/18 23:59 23:59 23:59 23:59 Intake Total 1142 1730 2630 585 Output Total 2250 500 1550 250 Balance -1108 1230 1080 335 - Objective General Appearance: positive: No acute distress, Alert Eyes Bilateral: positive: PERRL Eyes: OU Conjunctivae pale ENT: positive: Pharynx nml, No signs of dehydration Neck: positive: Thyroid nml, No JVD, Trachea midline Respiratory: positive: Chest non-tender, No respiratory distress, Other (diminished with bilateral low lobe crackles) Cardiovascular: positive: Regular rate & rhythm, No gallop, Systolic murmur, Decreased pulse(s) Peripheral Pulses: 1+ Radial (R), 1+ Radial (L) Abdomen: positive: Non-tender, Nml bowel sounds, Other (rounded, firm-baseline) Back: positive: Nml inspection Skin: positive: No rash, Warm, Dry Extremities: positive: Non-tender, Full ROM, Pedal edema (right greater than left, mild BLE) Neurologic/Psychiatric: positive: Oriented x3, CN's nml (2-12), Motor nml, Sensation nml, Weakness, Depressed mood/affect Reflexes: Bicep (R): 3+, Bicep (L): 3+ - Lab Results Fish Bones: 05/03/18 04:30 05/03/18 04:30 Other Labs: Lab Results x24hrs 05/02/18 05/02/18 Range/Units 04:55 04:55 WBC 11.9 H (4.8-10.8) x10^3/uL RBC 3.71 L (4.20-5.40) 10^6/uL Hgb 11.2 L (12.0-16.0) g/dL Hct 33.7 L (37.0-47.0) % MCV 90.7 (81.0-99.0) fL MCH 30.1 (27.0-31.0) pg MCHC 33.2 (32.0-36.0) g/dL RDW 15.8 H (12.0-15.0) % Plt Count 132 (130-450) 10^3/uL MPV 7.7 L (7.9-10.8) fL Neut # (Auto) 10.8 H (1.5-6.6) 10^3/uL Lymph # (Auto) 0.4 L (1.5-3.5) 10^3/uL [place] # (Auto) 0.6 (0.0-1.0) 10^3/uL Eos # (Auto) 0.0 (0.0-0.7) 10^3/uL Baso # (Auto) 0.0 (0.0-0.1) 10^3/uL Absolute Nucleated RBC 0.00 x10^3/uL Nucleated RBC % 0.0 /100WBC Sodium 126 L (135-145) mmol/L Potassium 3.1 L (3.5-5.0) mmol/L Chloride 81 L (101-111) mmol/L Carbon Dioxide 35 H (21-32) mmol/L Anion Gap 10.0 (6-13) BUN 14 (6-20) mg/dL Creatinine 0.7 (0.4-1.0) mg/dL Estimated GFR (MDRD) 80 L (>89) Glucose 119 H (70-100) mg/dL Calcium 8.9 (8.5-10.3) mg/dL Ionized Calcium NO Total Bilirubin 0.5 (0.2-1.0) mg/dL AST 19 (10-42) IU/L ALT 12 (10-60) IU/L Alkaline Phosphatase 42 (42-121) IU/L Total Protein 6.6 L (6.7-8.2) g/dL Albumin 3.2 (3.2-5.5) g/dL Globulin 3.4 (2.1-4.2) g/dL Albumin/Globulin Ratio 0.9 L (1.0-2.2) ABX Reporting Has patient been on IV antibiotics over the past 48 hours?: No Assessment/Plan - Problem List (1) Pneumonia Impression: A chest CT indicates bilateral pleural effusions, right greater than left and no pleural effusions. She has been prescribed both Azithromycin and Rocephin IV, which continue. She has bilateral crackles on exam, that are improved today. She has been dependent on oxygen since admission, and continues on 2L per nasal cannula. Plan: Continue with IV treatment, xopenex nebs, oxygen and she may need a walking oxygen de-sat study prior to discharge. Qualifiers: Pneumonia type: due to unspecified organism Laterality: right Lung location: lower lobe of lung Qualified Code(s): J18.1 - Lobar pneumonia, unspecified organism (2) Fall Impression: The patient admits to a recent fall back in March, and fractured a few ribs. 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 She has undergone physical therapy evaluations while, who recommends a short rehab stay to encourage further strength building to prevent falls. Plan: Fall precautions, treat PNA. Qualifiers: Encounter type: subsequent encounter Qualified Code(s): W19.XXXD - Unspecified fall, subsequent encounter (3) Pulmonary hypertension Impression: Final echo results from 04/26/18 show moderate pulmonary hypertension with an RVSP at rest of 53 mmHg. On exam, she is found to have an increased abdominal girth and is dependent on oxygen. She has been prescribed Spironolactone, which may also help her HTN treatment. Plan: Continue to treat with Spironolactone and oxygen. (4) Tachycardia Impression: The patient had many complicating factors that may be causing this. She has been prescribed Atenolol, which has been changed to metroprolol, albuterol that has been changed to Xopenex and she had Muscinex scheduled, now changed to PRN. On my exam, she is noted to have an irregular rate, and states that she feels that her heart is racing at times. She has also been on more than usual prednisone due to her ongoing hyponatremia, but I have resumed her lower home dose. This tachycardia, may be contributing to her ongoing fatigue. Plan: Continue medications and monitor vital signs. (5) Hx of breast cancer Impression: The patient states that she had a left breast mastectomy about 9 years ago, and there is a sign above her bed as to not using her LUE for blood draws. She is not thought to have had any complications since that time. Plan: Continue care. (6) Chronic pain Impression: The patient is prescribed daily oxycodone, and this continues here. She states that she just broke 3 ribs in March, and has chronic back and bilateral shoulder pain due to arthritis. Plan: Continue to treat pain and encourage movement, PT/OT daily. Qualifiers: Chronic pain type: other chronic pain Qualified Code(s): G89.29 - Other chronic pain (7) Hyponatremia Impression: The patient is hovering around 127-126 for her most recent sodium serum levels. She was given increased prednisone, IVFs, and her pneumonia has been treated. She was also on a phosphorous replacement, now discontinued. She continues to be fatigued, and is now showing more signs of intolerance, so her prednisone was reduced, her muscinex was changed to PRN and the lasix was changed to spironolactone. Plan: Check daily labs, and watch for increased confusion. (8) HTN (hypertension) Impression: The patient is prescribed Losartan, atenolol and norvasc at home. She has consequently had electrolyte difficulties, so I have made some adjustments. Since atenolol is contraindicated for those with long disease, I have changed this to Metroprolol succinate, reduced her losartan and discontinued the norvasc. Plan: Continue to monitor VS, give new medications, and monitor daily labs. Qualifiers: Hypertension type: essential hypertension Qualified Code(s): I10 - Essential (primary) hypertension
[2018-05-02] MEDS: cefTRIAXone 2 GM in SODIUM CHLORIDE 0.9% MINIBAG 100 ML IV SCH (22:28)
[2018-05-02] MEDS: AZITHROMYCIN INJ 500 MG in SODIUM CHLORIDE 0.9% 250 ML IV SCH (23:11)
[2018-05-03 04:35] LABS: BASOPHILS % (AUTO) 0.1 %; EOSINOPHILS % (AUTO) 0.1 %; LYMPHOCYTES # (AUTO) 0.3 10^3/uL (1.5-3.5); LYMPHOCYTES % (AUTO) 2.3 %; MEAN CORPUSCULAR HEMOGLOBIN 29.9 pg (27.0-31.0); MEAN CORPUSCULAR VOLUME 90.6 fL (81.0-99.0); MEAN PLATELET VOLUME 7.7 fL (7.9-10.8); MONOCYTES # (AUTO) 0.8 10^3/uL (0.0-1.0); MONOCYTES % (AUTO) 6.2 %; NEUTROPHILS # (AUTO) 12.2 10^3/uL (1.5-6.6); NEUTROPHILS % (AUTO) 91.3 %; PLT - PLATELET COUNT 133 10^3/uL (130-450); RED BLOOD COUNT 3.34 10^6/uL (4.20-5.40); RED CELL DISTRIBUTION WIDTH 15.5 % (12.0-15.0); WHITE BLOOD COUNT 13.3 x10^3/uL (4.8-10.8)
[2018-05-03 04:48] LABS: ALBUMIN 2.9 g/dL (3.2-5.5); BILIRUBIN,TOTAL 0.3 mg/dL (0.2-1.0); CALCIUM 8.7 mg/dL (8.5-10.3); CREATININE 0.6 mg/dL (0.4-1.0); TOTAL PROTEIN 5.9 g/dL (6.7-8.2)
[2018-05-03] MEDS: PANTOPRAZOLE 40 MG TABLET PO SCH (06:17)
[2018-05-03] MEDS: LEVALBUTEROL 1.25 MG/3 ML NEB INH SCH (07:27)
[2018-05-03] MEDS ORDERED: METOPROLOL SUCCINATE 25 MG TABLET PO SCH (08:00)
[2018-05-03] MEDS: MAGNESIUM OXIDE 400 MG TABLET PO SCH (08:06)
[2018-05-03] MEDS: SPIRONOLACTONE 25 MG TABLET PO SCH (08:07)
[2018-05-03] MEDS: SACCHAROMYCES BOULARDII 250 MG CAPSULE PO SCH (08:07)
[2018-05-03] MEDS: ENOXAPARIN 40 MG/0.4 ML SYRINGE SUBQ SCH (08:07)
[2018-05-03] MEDS: predniSONE 20 MG TABLET PO SCH (08:07)
[2018-05-03] MEDS: SODIUM CHLORIDE FLUSH 0.9% 10 ML SYRINGE IVP SCH ×2 (08:08→09:53)
[2018-05-03] MEDS: SENNA 8.6 MG TABLET PO SCH (08:08)
[2018-05-03] MEDS: POLYETHYLENE GLYCOL 3350 17 GM PACKET PO SCH (08:08)
[2018-05-03] MEDS: DOCUSATE SODIUM 250 MG CAPSULE PO SCH (08:08)
[2018-05-03] MEDS: ACETAMINOPHEN 325 MG TABLET PO PRN (08:11)
[2018-05-03] MEDS: BACITRACIN OINT TOP PRN (08:12)
[2018-05-03] MEDS ORDERED: SODIUM CHLORIDE 1 GM TABLET PO SCH (09:00)
--- NOTE | 2018-05-03 10:50 | Discharge Plan ---
Discharge Plan Disposition: 06 Home Health Service Condition: Fair Prescriptions: Acetaminophen [Tylenol Extra Strength] 500 mg PO TID #90 tablet amLODIPine [Norvasc] 5 mg PO DAILY #30 tablet Azithromycin [Zithromax] 250 mg PO DAILY #6 tablet Budesonide [Pulmicort] 0.5 mg INH BID #60 neb Levalbuterol [Xopenex] 1.25 mg INH Q4H PRN #90 neb PRN Reason: Wheezing Lidocaine Patch 5% [Lidoderm Patch] 1 patch TOP DAILY PRN #20 patch PRN Reason: Pain Losartan [Cozaar] 50 mg PO DAILY@1200 #30 tablet Nebulizer and Compressor [Easy Air Compressor Nebulizer] 1 each MC QID #1 each oxyCODONE [Roxicodone] 5 mg PO Q4H PRN #25 tablet PRN Reason: Pain Pantoprazole [Protonix] 40 mg PO QDAC #30 tablet Senna [Senokot] 8.6 mg PO DAILY #30 tablet Spironolactone [Aldactone] 25 mg PO DAILY #30 tablet Diet: Regular Activity Restrictions: Activity as Tolerated Shower Restrictions: No Driving Restrictions: Yes Assistance Devices: Walker Weight Bearing: Full Weight Instruction Topics: Lidocaine dermal patch, Azithromycin tablets, Pneumonia Additional Instructions or Follow Up instructions: You were admitted for pneumonia and your oxygen level was very low. You were given IV antibiotics, steroids, and breathing treatments. A walking oxygen test was performed as you will likely require home oxygen and the final result shows that you qualify for oxygen to be worn continuously at 2L per nasal cannula. Our physical therapist recommends a short stay at [facility] for further rehab, but due to insurance reasons, you will instead be sent home with home health services to have physical and occupational therapies. You were found to have a condition which creates swelling and increased pressure to the right side of your heart, so I have made some medication changes to help out with this. The beta catarina that you were on is not the best choice for those with lung disease, so this was changed to a long acting metropolol. Please see your PCP within one week. Follow-Up Care: Home Health - PT, Home Health - OT No Smoking: If you smoke, Please STOP! Call for help. Follow-up with: Theodore Angela MD [Primary Care Provider] -
[2018-05-03 11:16] VITALS: BP 139/64
[2018-05-03] MEDS: LOSARTAN 50 MG TABLET PO SCH (11:16)
== END 2018-05-03 13:47 | disposition home health service (06) | DRG 194 ==
LOC: EDUNIT# → ED 19:10 → MS3 22:46
PROVIDERS: ADMIT Internal Medicine; ATTEND Nurse Practitioner
DX: J18.1 Lobar pneumonia, unspecified organism (principal); E87.1 Hypo-osmolality and hyponatremia; I10 Essential (primary) hypertension; Z87.01 Personal history of pneumonia (recurrent); J44.0 Chronic obstructive pulmonary disease with (acute) lower respiratory infection; J91.8 Pleural effusion in other conditions classified elsewhere; I11.9 Hypertensive heart disease without heart failure; R09.02 Hypoxemia; M19.012 Primary osteoarthritis, left shoulder; M19.011 Primary osteoarthritis, right shoulder; M47.9 Spondylosis, unspecified; G89.29 Other chronic pain; I27.20 Pulmonary hypertension, unspecified; R00.0 Tachycardia, unspecified; T44.7X5A Adverse effect of beta-adrenoreceptor antagonists, initial encounter; T48.6X5A Adverse effect of antiasthmatics, initial encounter; T48.4X5A Adverse effect of expectorants, initial encounter; T46.5X5A Adverse effect of other antihypertensive drugs, initial encounter; T46.1X5A Adverse effect of calcium-channel blockers, initial encounter; T38.0X5A Adverse effect of glucocorticoids and synthetic analogues, initial encounter; T50.1X5A Adverse effect of loop [high-ceiling] diuretics, initial encounter; Y92.009 Unspecified place in unspecified non-institutional (private) residence as the place of occurrence of the external cause; R68.0 Hypothermia, not associated with low environmental temperature; Z85.3 Personal history of malignant neoplasm of breast; Z66 Do not resuscitate; Z87.11 Personal history of peptic ulcer disease; Z91.81 History of falling; Z90.12 Acquired absence of left breast and nipple; Z79.891 Long term (current) use of opiate analgesic; Z87.81 Personal history of (healed) traumatic fracture; Z87.891 Personal history of nicotine dependence
CPT/HCPCS: 36415; 71045; 71046; 71275; 80048; 80053; 82533; 83605; 83690; 83735; 83880; 84100; 84295; 84443; 84484; 85025; 87040; 87275; 87276; 93005; 93306; 94640; 94761; 96365; 96375; 99283; 99284

== ENCOUNTER 2018-05-07 11:42 | Outpatient (CLI) | payer MEDICARE | END 2018-05-07 11:43 | disposition critical access hospital (66) | LOC: EMS 11:42 | PROVIDERS: ATTEND Surgery | DX: R14.0 Abdominal distension (gaseous) (principal) | CPT/HCPCS: A0425; A0429 ==

== ENCOUNTER 2018-05-07 12:05 | Inpatient (IN) | payer MEDICARE ==
[2018-05-07] MEDS ORDERED: FUROSEMIDE 40 MG/4 ML VIAL IVP STA (12:34)
--- NOTE | 2018-05-07 12:37 | ED Physician Documentation ---
PD HPI DYSPNEA - Stated complaint Stated Complaint: LOWER EXTREMITY SWELLING - Chief complaint Chief Complaint: Resp - History obtained from History obtained from: Patient, EMS - History of Present Illness Timing - onset: Other (This is a 87-year-old woman with history of chronic back pain, hypertension. She was admitted to the hospital with pneumonia on the 17th of this month and discharged. She started to develop pedal edema while in the hospital and was sent home on Lasix and surgeon. Pedal edema has been progressive and now she has abdominal edema with increased shortness of breath only on exertion. She also has orthopnea. She denies any chest pain. She appears to be in A. fib on the monitor, she has no history of arrhythmia that she knows of.) Review of Systems Ten Systems: 10 systems reviewed and negative Constitutional: reports: Fatigue. denies: Fever, Chills Cardiac: denies: Chest pain / pressure, Palpitations Respiratory: reports: Dyspnea, Cough GI: reports: Abdominal Swelling. denies: Abdominal Pain, Nausea, Vomiting PD PAST MEDICAL HISTORY - Past Medical History Cardiovascular: Hypertension, Murmur Respiratory: None Neuro: None Endocrine/Autoimmune: None GI: None FRAME BANDER: Breast cancer : None HEENT: None Psych: Depression Musculoskeletal: Osteoarthritis, Fatigue, Chronic back pain, Other Derm: None - Past Surgical History Past Surgical History: Yes General: Colonoscopy Ortho: Spine surgery /FRAME BANDER: Hysterectomy, Mastectomy - Present Medications Home Medications: Ambulatory Orders Medication Instructions Recorded Confirmed Acetaminophen [Tylenol Extra 500 mg PO TID #90 tablet 05/02/18 Strength] Azithromycin [Zithromax] 250 mg PO DAILY #6 tablet 05/02/18 DULoxetine [Cymbalta] 30 mg PO DAILY #30 05/02/18 04/26/18 Levalbuterol [Xopenex] 1.25 mg INH Q4H PRN #90 neb 05/02/18 Lidocaine Patch 5% [Lidoderm Patch] 1 patch TOP DAILY PRN #20 patch 05/02/18 Losartan [Cozaar] 50 mg PO DAILY@1200 #30 tablet 05/02/18 Pantoprazole [Protonix] 40 mg PO QDAC #30 tablet 05/02/18 Senna [Senokot] 8.6 mg PO DAILY #30 tablet 05/02/18 Spironolactone [Aldactone] 25 mg PO DAILY #30 tablet 05/02/18 amLODIPine [Norvasc] 5 mg PO DAILY #30 tablet 05/02/18 oxyCODONE [Roxicodone] 5 mg PO Q4H PRN #25 tablet 05/02/18 Budesonide [Pulmicort] 0.5 mg INH BID #60 neb 05/03/18 Nebulizer and Compressor [Easy Air 1 each MC QID #1 each 05/03/18 Compressor Nebulizer] - Allergies Allergies/Adverse Reactions: Allergies Allergy/AdvReac Type Severity Reaction Status Date / Time lisinopril Allergy Severe Anaphylaxis Verified 12/09/17 16:31 ciprofloxacin [From Cipro] Allergy Unknown Unknown Verified 12/09/17 16:31 ciprofloxacin HCl * Allergy Unknown Unknown Verified 12/09/17 16:31 [From Cipro] Sulfa (Sulfonamide Allergy Unknown Unknown Verified 12/09/17 16:31 Antibiotics) - Social History Does the pt smoke?: No Smoking Status: Never smoker Does the pt drink ETOH?: Yes Does the pt have substance abuse?: Yes - Family History Family history: reports: Non contributory - Immunizations Immunizations are current?: Yes - POLST Patient has POLST: No POLST Status: DNR PD ED PE NORMAL - Vitals Vital signs reviewed: Yes - General General: Alert and oriented X 3, No acute distress - HEENT HEENT: PERRL, EOMI - Neck Neck: Supple, no meningeal sign, No bony TTP - Cardiac Cardiac: Other (Rapid and slightly irregular pulse) - Respiratory Respiratory: Other (Diminished at both bases, right greater than left with rhonchi there as well) - Abdomen Abdomen: Soft, Non tender, Other (Somewhat distended with positive fluid wave but no tenderness.) - Back Back: No CVA TTP, No spinal TTP - Derm Derm: Normal color, Warm and dry - Extremities Extremities: Other (She has asymmetric pedal edema, right greater than left. She says her left leg is always smaller than her right after back surgeries she has atrophy there though. The pedal edema is new though.) - Neuro Neuro: Alert and oriented X 3, Normal speech - Psych Psych: Normal mood, Normal affect Results - Vitals Vitals: Vital Signs - 24 hr 05/07/18 12:17 Temperature 36.6 C Heart Rate 122 H Respiratory 18 Rate Blood Pressure 162/104 H O2 Saturation 100 Oxygen O2 Source [] Nasal cannula O2 Source Nasal cannula Oxygen Flow Rate 2 - EKG (time done) 1256 Rate: Rate (enter#) (125) Rhythm: Atrial fibrillation [place]: Normal QRS: LVH Ischemia: Q waves (anterior) Computer interpretation: Agree with computer - Labs Labs: Laboratory Tests 05/07/18 05/07/18 05/07/18 13:05 13:05 13:05 WBC 7.4 RBC 4.06 L Hgb 12.3 Hct 37.1 MCV 91.3 MCH 30.3 MCHC 33.1 RDW 15.1 H Plt Count 181 MPV 7.9 Neut # (Auto) 5.7 Lymph # (Auto) 0.5 L [place] # (Auto) 1.0 Eos # (Auto) 0.1 Baso # (Auto) 0.1 Absolute Nucleated RBC 0.00 Nucleated RBC % 0.0 PT 12.2 INR 1.1 Sodium 126 L Potassium 3.5 Chloride 80 L* Carbon Dioxide 37 H Anion Gap 9.0 BUN 7 Creatinine 0.6 Estimated GFR (MDRD) 95 Glucose 106 H Calcium 9.2 Magnesium 1.2 L Total Bilirubin 0.8 AST 22 ALT 13 Alkaline Phosphatase 75 Troponin I B-Natriuretic Peptide Total Protein 7.2 Albumin 3.6 Globulin 3.6 Albumin/Globulin Ratio 1.0 Lipase 61 H 05/07/18 05/07/18 13:05 13:05 WBC RBC Hgb Hct MCV MCH MCHC RDW Plt Count MPV Neut # (Auto) Lymph # (Auto) [place] # (Auto) Eos # (Auto) Baso # (Auto) Absolute Nucleated RBC Nucleated RBC % PT INR Sodium Potassium Chloride Carbon Dioxide Anion Gap BUN Creatinine Estimated GFR (MDRD) Glucose Calcium Magnesium Total Bilirubin AST ALT Alkaline Phosphatase Troponin I < 0.04 B-Natriuretic Peptide 255 H Total Protein Albumin Globulin Albumin/Globulin Ratio Lipase - Rads (name of study) 1v chest Radiology: EMP read contemporaneously (Mild cardiomegaly with moderate diffuse interstitial prominence and improved aeration at the right base) PD MEDICAL DECISION MAKING - ED course ED course: 87-year-old woman with history of recent admission for pneumonia and worsening pedal edema presents with new onset atrial fibrillation and significant pedal edema, right greater than left. She does not seem to have significant pulmonary edema though. Workup demonstrates new onset rapid A. fib which is treated with divided doses of diltiazem, significant hypochloremia and modest hypomagnesemia. Ultrasound of her legs pending on admission. Given increased need for oxygen, she was on 2 L at home and now requires [address] Islas for admission at 2:06 PM. Departure - Departure Disposition: 66 [facility] DC/Xfer Clinical Impression: Hypoxia, New onset a-fib, Rapid atrial fibrillation, Pedal edema, Hypochloremia HTN (hypertension) Qualifiers: Hypertension type: essential hypertension Qualified Code(s): I10 - Essential (primary) hypertension Condition: Serious
--- NOTE | 2018-05-07 13:07 | XRAY Report ---
Reason: chest pain Procedure Date: 05/07/2018 Accession Number: [id number] / [id number] Procedure: XR - Chest 1 View X-Ray CPT Code: 03738 FULL RESULT: EXAM: CHEST RADIOGRAPHY EXAM DATE: 05/07/2018 12:45 PM. CLINICAL HISTORY: Chest pain. COMPARISON: CHEST 1 VIEW 04/27/2018 8:45 AM. TECHNIQUE: 1 view. FINDINGS: Lungs/Pleura: Stable moderate diffuse interstitial infiltrates. Almost complete resolution of a small airspace infiltrate right lung base. No effusion nor pneumothorax. New subsegmental consolidation/atelectasis anterior segment right upper lobe. Mediastinum: Stable mild cardiomegaly. Other: Multilevel kyphoplasty thoracolumbar junction. IMPRESSION: 1. Mild cardiomegaly. 2. Moderate diffuse interstitial prominence. Differential is between interstitial edema versus airway disease/viral syndrome. 3. Overall, mild improved aeration right lung base. RADIA
[2018-05-07] MEDS ORDERED: diltiaZEM INJ 5 MG/ML VIAL IVP STA ×2 (13:12→14:02)
[2018-05-07 13:20] LABS: BASOPHILS # (AUTO) 0.1 10^3/uL (0.0-0.1); BASOPHILS % (AUTO) 1.6 %; EOSINOPHILS # (AUTO) 0.1 10^3/uL (0.0-0.7); EOSINOPHILS % (AUTO) 1.2 %; HGB - HEMOGLOBIN 12.3 g/dL (12.0-16.0); LYMPHOCYTES # (AUTO) 0.5 10^3/uL (1.5-3.5); LYMPHOCYTES % (AUTO) 6.3 %; MEAN CORPUSCULAR HEMOGLOBIN 30.3 pg (27.0-31.0); MEAN CORPUSCULAR HGB CONC 33.1 g/dL (32.0-36.0); MEAN CORPUSCULAR VOLUME 91.3 fL (81.0-99.0); MEAN PLATELET VOLUME 7.9 fL (7.9-10.8); MONOCYTES % (AUTO) 13.7 %; NEUTROPHILS # (AUTO) 5.7 10^3/uL (1.5-6.6); NEUTROPHILS % (AUTO) 77.2 %; PLT - PLATELET COUNT 181 10^3/uL (130-450); RED BLOOD COUNT 4.06 10^6/uL (4.20-5.40); RED CELL DISTRIBUTION WIDTH 15.1 % (12.0-15.0); WHITE BLOOD COUNT 7.4 x10^3/uL (4.8-10.8)
[2018-05-07 13:27] LABS: INR 1.1 (0.8-1.2); PT - PROTHROMBIN TIME 12.2 secs (9.9-12.6)
[2018-05-07 13:45] LABS: ALBUMIN 3.6 g/dL (3.2-5.5); BILIRUBIN,TOTAL 0.8 mg/dL (0.2-1.0); CALCIUM 9.2 mg/dL (8.5-10.3); CREATININE 0.6 mg/dL (0.4-1.0); MAGNESIUM 1.2 mg/dL (1.7-2.8); TOTAL PROTEIN 7.2 g/dL (6.7-8.2)
[2018-05-07] MEDS ORDERED: ASPIRIN CHEW 81 MG TABLET PO STA (13:58)
[2018-05-07] MEDS ORDERED: MAGNESIUM SULFATE 2 GRAM 2 GM/50 ML BAG IV ONE (14:03)
[2018-05-07] MEDS ORDERED: TEMAZEPAM 15 MG CAPSULE PO PRN (14:36)
[2018-05-07] MEDS ORDERED: oxyCODONE 5 MG TABLET PO PRN (14:36)
[2018-05-07] MEDS ORDERED: SODIUM CHLORIDE FLUSH 0.9% 10 ML SYRINGE IVP PRN (14:36)
[2018-05-07] MEDS ORDERED: ONDANSETRON ODT 4 MG TABLET TL PRN (14:36)
[2018-05-07] MEDS ORDERED: ASPIRIN CHEW 81 MG TABLET ONE (14:39)
--- NOTE | 2018-05-07 15:41 | HISTORY & PHYSICAL EXAMINATION ---
Chief Complaint - Chief Complaint Chief Complaint: Increased heart rate History of Present Illness - Admitted From Admitted From:: ED - History Obtained From Records Reviewed: Most recent d/c on 04/25 History obtained from: Patient and ED physician Exam Limitations: None - History of Present Illness HPI Comment/Other: This patient is an 87-year-old female with past medical history significant for chronic alcohol use, chronic back pain, hypertension, left breast cancer stage II, longer under treatment, he was recently discharged from the hospital on 04/25/2018 after having been admitted for community-acquired pneumonia. Going to the patient, the reason she was evaluated in the emergency room is that she was taking her heart rate by pulse at home, which is something that she does regularly and she found it to be 120 bpm. In the emergency room, patient was evaluated and found to be in A. fib with RVR. She was also hypoxic compared with her previous level of oxygen requirement, which was 2 L at the time of disc harge, now requiring 3 L of oxygen. Patient explicitly denies any shortness of breath or chest pain, though the emergency room evaluation included a chief complaint of dyspnea on exertion. She also complains of increased edema of the bilateral extremities, right worse than left. She states that her right lower extremity is typically edematous however it is now worse than usual. She also states that her left lower extremity is typically normal without edema and it is now mild to moderately ed ematous. She also complains of a sensation of fluid collecting in her abdomen and increased urinary frequency. In the ER, she was given an initial dose of diltiazem which brought her heart rate down from the 120s down to 107. She was also found to be significantly hypochloremic with a chloride level of 80, and was also hyponatremic with a sodium level of 126. Both of these abnormalities were present at the time of discharge and her sodium level was exactly the same however her chloride level had typically been in the mid to high 80s. After initiating treatment for the atrial fibrillation, hospitalist service was contacted for medical admission. At the time of my evaluation, the patient was about to undergo an ultrasound of the lower extremities, the results of which I do not have the notes yet.This patient is an 87-year-old female with past medical history significant for chronic alcohol use, chronic back pain, hypertension, left breast cancer stage II, longer under treatment, he was recently discharged from the hospital on 04/25/2018 after having been admitted for community-acquired pneumonia. Going to the patient, the reason she was evaluated in the emergency room is that she was taking her heart rate by pulse at home, which is something that she does regularly and she found it to be 120 bpm. In the emergency room, patient was evaluated and found to be in A. fib with RVR. She was also hypoxic compared with her previous level of oxygen requirement, which was 2 L at the time of discharge, now requiring 3 L of oxygen. Patient explicitly denies any shortness of breath or chest pain, though the emergency room evaluation included a chief complaint of dyspnea on exertion. She also complains of increased edema of the bilateral extremities, right worse than left. She states that her right lower extremity is typically edematous however it is now worse than usual. She also states that her left lower extremity is typically normal without edema and it is now mild to moderately edematous. She also complains of a sensation of fluid collecting in her abdomen and increased urinary frequency. In the ER, she was given an initial dose of diltiazem which brought her heart rate down from the 120s down to 107. She was also found to be significantly hypochloremic with a chloride level of 80, and was also hyponatremic with a sodium level of 126. Both of these abnormalities were present at the time of discharge and her sodium level was exactly the same however her chloride level had typically been in the mid to high 80s. After initiating treatment for the atrial fibrillation, hospitalist service was contacted for medical admission. At the time of my evaluation, the patient was about to undergo an ultrasound of the lower extremities, the results of which I do not have the notes yet. History - Past Medical History Cardiovascular: reports: Hypertension, Murmur Respiratory: reports: None, COPD, Shortness of breath, Other (Hypoxia) Neuro: reports: None Endocrine/Autoimmune: reports: None GI: reports: None COMPLETION MANAGER: reports: Breast cancer : reports: None HEENT: reports: None Psych: reports: Depression Musculoskeletal: reports: Osteoarthritis, Fatigue, Chronic back pain, Other Derm: reports: None MRSA Hx?: No - Past Surgical History General: reports: Colonoscopy Ortho: reports: Spine surgery /COMPLETION MANAGER: reports: Hysterectomy, Mastectomy - Family & Social History Family History: Mother: , CAD, Cancer, Father: , Alzheimer's Disease, CVA/TIA Family History Comment/Other: pt is living [place] with her family. She is window. She has one son who is living at [facility], one daughter who is living in [place]. Social History Notes: The patient lives with her son in [place], [place]. She is a . She also has 1 daughter who lives in [place]. She is still fairly independent with her activities of daily living. She has recently started to use a walker due to increasing arthritis. 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 She denies any tobacco abuse currently but did use to be a mild smoker but quit 15 years ago. 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 She drinks 2 glasses of bourbon daily. She denies having any history of alcohol withdrawal. She denies any recreational drug abuse. - Substance History Use: Uses substance without health or social issues: Alcohol - POLST Patient has POLST: No POLST Status: DNR Meds/Allgy - Home Medications Home Medications: Ambulatory Orders Medication Instructions Recorded Confirmed Acetaminophen [Tylenol Extra 500 mg PO TID #90 tablet 05/02/18 Strength] Azithromycin [Zithromax] 250 mg PO DAILY #6 tablet 05/02/18 DULoxetine [Cymbalta] 30 mg PO DAILY #30 05/02/18 04/26/18 Levalbuterol [Xopenex] 1.25 mg INH Q4H PRN #90 neb 05/02/18 Lidocaine Patch 5% [Lidoderm Patch] 1 patch TOP DAILY PRN #20 patch 05/02/18 Losartan [Cozaar] 50 mg PO DAILY@1200 #30 tablet 05/02/18 Pantoprazole [Protonix] 40 mg PO QDAC #30 tablet 05/02/18 Senna [Senokot] 8.6 mg PO DAILY #30 tablet 05/02/18 Spironolactone [Aldactone] 25 mg PO DAILY #30 tablet 05/02/18 amLODIPine [Norvasc] 5 mg PO DAILY #30 tablet 05/02/18 oxyCODONE [Roxicodone] 5 mg PO Q4H PRN #25 tablet 05/02/18 Budesonide [Pulmicort] 0.5 mg INH BID #60 neb 05/03/18 Nebulizer and Compressor [Easy Air 1 each QID #1 each 05/03/18 Compressor Nebulizer] - Allergies Allergies/Adverse Reactions: Allergies Allergy/AdvReac Type Severity Reaction Status Date / Time lisinopril Allergy Severe Anaphylaxis Verified 12/09/17 16:31 ciprofloxacin [From Cipro] Allergy Unknown Unknown Verified 12/09/17 16:31 ciprofloxacin HCl * Allergy Unknown Unknown Verified 12/09/17 16:31 [From Cipro] Sulfa (Sulfonamide Allergy Unknown Unknown Verified 12/09/17 16:31 Antibiotics) Review of Systems - Constitutional Constitutional: reports: Fatigue, Malaise, Weakness. denies: Fever, Chills, Weight gain, Weight loss - Cardiovascular Cariovascular: reports: Edema, Exertional dyspnea, Orthopnea. denies: Irregular heart rate, Palpitations, Chest pain, Lightheadedness, Syncope - Respiratory Respiratory: reports: SOB with exertion. denies: Cough, Wheezing, SOB at rest - Gastrointestinal Gastrointestinal: reports: Bloating (Fluid in abdomen), Other. denies: Abdominal pain - Genitourinary Genitourinary: reports: Frequency - Neurological Neurological: reports: General weakness Prior Level of Functionality: Independent Exam - Vital Signs Vital Signs: Vital Signs x48h Temp Pulse Resp BP Pulse Ox 05/07/18 14:47 95 23 168/84 H 98 05/07/18 14:39 89 20 168/84 H 99 05/07/18 14:16 107 H 21 163/92 H 100 05/07/18 12:17 36.6 C 122 H 18 162/104 H 100 - Physical Exam General Appearance: positive: No acute distress ENT: positive: No signs of dehydration Neck: positive: Nml inspection Respiratory: positive: No respiratory distress, Breath sounds nml Cardiovascular: positive: Regular rate & rhythm, No murmur, No gallop, Tachycardia. negative: Extrasystoles Peripheral Pulses: positive: 2+ Abdomen: positive: Tenderness, Other (Moderate generalized abdominal distention) Skin: negative: Color nml, Cyanosis, Diaphoresis Extremities: positive: Pedal edema, Other (The lower extremities bilaterally demonstrate edema with 2-3+ pitting edema of the right lower extremity, and 1+ on the left lower extremity.) Neurologic/Psychiatric: positive: Oriented x3, CN's nml (2-12), Motor nml, Sensation nml, Mood/affect nml Conclusion/Plan - Problem List (1) Atrial fibrillation with rapid ventricular response Conclusion/Plan: Patient is currently new onset A. fib with a rapid ventricular response. The trigger for this is unclear, though it could be related to the recent pneumonia that she had, and persistent hypoxia.She has been relatively well controlled rate mckeon with a single dose of diltiazem, with a second dose lowering it below 100. She will likely be able to transition to orals today and we will continue to monitor her on telemetry. We will discuss the recommendations for anticoagulation however at this point given that she is in sinus rhythm, we will hold off on initiating this immediately. (2) New onset a-fib Conclusion/Plan: As above, this is a new onset atrial fibrillation, but given that she is now back in sinus rhythm with the oral diltiazem, we will continue to monitor to see if she reverts back to atrial fibrillation. If she does demonstrate paroxysmal A. fib, the recommendation will be to anticoagulate however with a single episode previously unknown atrial for ablation, the risks may not be greater than the reward with respect to anticoagulation in this patient. (3) HTN (hypertension) Conclusion/Plan: Continue home medications, plus diltiazem, monitor for blood pressure changes.Given the diltiazem for rate control, may need to reduce her medications depending on her blood pressure response. Qualifiers: Hypertension type: essential hypertension Qualified Code(s): I10 - Essential (primary) hypertension (4) Hypochloremia Conclusion/Plan: Patient has chronically hypochloremic, and it is not clear if this is secondary to dehydration, fluid loss, though may be related to diuretic use. Patient does not demonstrate evidence of alkalosis otherwise with a normal bicarb, continue to monitor and initiate fluid restriction for hyponatremia. (5) Hypoxia Conclusion/Plan: Etiology for the hypoxia is unclear at this point however given her recent pneumonia, this certainly could be playing a role. Chest x-ray at this point is suggestive of possible atelectasis, versus viral syndrome, versus new infiltrate of the right upper lobe. Will check a flu swab, and follow-up labs for evidence of CHF exacerbation. Continue breathing treatments as needed (6) Pedal edema Conclusion/Plan: Suggestive of fluid overload,However recent echocardiogram is unremarkable. Possible differential includes lymphatic versus venous stasis. Ultrasound is pending for possible DVT - Lab Results Fish Bones: 05/07/18 13:05 05/07/18 13:05 - Diagnostic Imaging Results Diagnostic Imaging Results: positive: Final report reviewed - EKG Results EKG Interpreted Independently: Yes EKG Comparison: Changed from prior EKG (A fib) Core Measures - Anticipated LOS I expect patient to be DC'd or transferred within 96 hours.: Yes - DVT/VTE - Prophylaxis VTE/DVT Device ordered at admit?: Yes VTE/DVT Prophylaxis med ordered at admit?: Yes
[2018-05-07] MEDS: SODIUM CHLORIDE FLUSH 0.9% 10 ML SYRINGE IVP SCH ×2 (16:22→23:39)
[2018-05-07] MEDS ORDERED: LIDOCAINE PATCH 5% TOP PRN (16:26)
[2018-05-07] MEDS: diltiaZEM 30 MG TABLET PO SCH ×2 (17:55→23:38)
[2018-05-07] MEDS ORDERED: diltiaZEM 30 MG TABLET PO SCH (18:00)
[2018-05-07] MEDS: guaiFENesin 600 MG TABLET PO SCH (20:39)
[2018-05-08] MEDS: ACETAMINOPHEN 325 MG TABLET PO PRN ×2 (04:07→12:58)
[2018-05-08] MEDS: PANTOPRAZOLE 40 MG TABLET PO SCH (06:08)
[2018-05-08] MEDS: diltiaZEM 30 MG TABLET PO SCH (06:09)
[2018-05-08 06:22] LABS: CALCIUM 8.9 mg/dL (8.5-10.3); CREATININE 0.5 mg/dL (0.4-1.0)
[2018-05-08] MEDS ORDERED: PANTOPRAZOLE 40 MG TABLET PO SCH (07:00)
[2018-05-08] MEDS: ENOXAPARIN 40 MG/0.4 ML SYRINGE SUBQ SCH (09:58)
[2018-05-08] MEDS: AZITHROMYCIN 250 MG TABLET PO SCH (09:58)
[2018-05-08] MEDS: DULoxetine 30 MG CAPSULE PO SCH (09:58)
[2018-05-08] MEDS: guaiFENesin 600 MG TABLET PO SCH ×2 (09:58→20:44)
[2018-05-08] MEDS: SPIRONOLACTONE 25 MG TABLET PO SCH (09:58)
[2018-05-08] MEDS: SODIUM CHLORIDE FLUSH 0.9% 10 ML SYRINGE IVP SCH ×2 (09:59→17:08)
[2018-05-08] MEDS: SENNA 8.6 MG TABLET PO SCH (10:03)
[2018-05-08] MEDS: POLYETHYLENE GLYCOL 3350 17 GM PACKET PO SCH (10:03)
[2018-05-08] MEDS: diltiaZEM CD 120 MG CAPSULE PO SCH (10:37)
[2018-05-08] MEDS ORDERED: ZINC OXIDE 20% OINT 28.35 GM TUBE TOP PRN (11:11)
--- NOTE | 2018-05-08 12:00 | PROVIDER PROGRESS NOTE ---
Subjective - Prog Note Date Prog Note Date: 05/08/18 Prog Note Time: 11:15 - Subjective Pt reports feeling: Improved Subjective: 87 yo female patient with pmh of chronic alcohol use, chronic back pain, HTN, left breast cancer stage II presenting with new onset atrial fibrillation. Pt states she was recently discharged from the hospital on 04/25/18 for CAP. Pt states that she was home for 2 days during which she noticed increased swelling of bilateral lower extremities extending into her abdomen. Pt presented to the ER for evaluation of edema which is not normal for her. Pt states that the right extremity swelling was worse than the left. She states her abdomen was firm to palpation, but denies any changes to bowel movement. Pt does state sensation of urinary retention with possible decrease in urinary frequency. Pt states that she was started on 2L home oxygen at home. Pt states that oxygen machine kept turning off requiring increased monitoring from her son resulting in multiple episodes of shortness of breath. Pt confirms tachycardia with recording of 125 bpm. Pt denies chest pain, fever, headache, AMS, syncope, DVT, fall. Pt was found to be in Atrial Fibrillation w/ RVR on ER presentation. Pt was given dilti azem. Pt has tolerated PO Diltiazem. Labs noted to be hyponatremic similar to last discharge, and newly found hypochloremic. Pt CHADS2 score of 2 - intermediate risk of thromboembolic event. Discussed pt care with son and answered questions regarding atrial fibrillation, course of treatment and hospital stay. Pt and son agree with current treatment and have no further questions to current care. Current Medications - Current Medications Current Medications: Current Medications Generic Name Dose Route Start Last Admin Trade Name Freq PRN Reason Stop Dose Admin Acetaminophen 650 mg 05/07/18 14:36 05/08/18 12:58 Tylenol PO 650 mg Q4HR PRN Administration Pain 1 to 4 Azithromycin 250 mg 05/08/18 09:00 05/08/18 09:58 Zithromax PO 250 mg DAILY [place] Administration Diltiazem HCl 120 mg 05/08/18 09:00 05/08/18 10:37 Cardizem Cd PO 120 mg DAILY [place] Administration Duloxetine HCl 30 mg 05/08/18 09:00 05/08/18 09:58 Cymbalta PO 30 mg DAILY [place] Administration Enoxaparin Sodium 40 mg 05/08/18 09:00 05/08/18 09:58 Lovenox SUBQ 40 mg DAILY [place] Administration Guaifenesin 600 mg 05/07/18 21:00 05/08/18 09:58 Mucinex PO 600 mg BID [place] Administration Multi-Ingredient Ointment 1 applic 05/08/18 11:11 05/08/18 12:58 Zinc Oxide TOP 1 applic PRN PRN Administration Skin Care Pantoprazole Sodium 40 mg 05/08/18 07:00 05/08/18 06:08 Protonix PO 40 mg QDAC [place] Administration Polyethylene Glycol 17 gm 05/08/18 09:00 05/08/18 10:03 Miralax PO Not Given DAILY [place] Senna 8.6 mg 05/08/18 09:00 05/08/18 10:03 Senokot PO Not Given DAILY [place] Sodium Chloride 10 ml 05/07/18 17:00 05/08/18 09:59 Normal Saline Flush 0.9% IVP 10 ml 0100,0900,1700 [place] Administration Spironolactone 25 mg 05/08/18 09:00 05/08/18 09:58 Aldactone PO 25 mg DAILY [place] Administration Objective - Vital Signs/Intake & Output Vital Signs: Vital Signs x48h Temp Pulse Resp BP BP Pulse Ox 05/08/18 10:39 91 123/55 L 05/08/18 07:45 36.4 C L 97 16 147/64 H 99 05/08/18 06:09 149/67 H 05/08/18 04:49 36.4 C L 84 20 131/65 H 100 Intake & Output: Intake & Output 05/05/18 05/06/18 05/07/18 05/08/18 23:59 23:59 23:59 23:59 Intake Total 410 990 Output Total 1750 Balance -1340 990 - Objective General Appearance: positive: No acute distress Eyes Bilateral: positive: Normal inspection, PERRL ENT: positive: ENT inspection nml Neck: positive: Nml inspection Respiratory: positive: Chest non-tender Cardiovascular: positive: No murmur, No gallop, Irregularly irregular (83 bpm) Peripheral Pulses: 2+ Radial (R), 2+ Radial (L), 2+ Dorsalis pedis (R), 2+ Dorsalis pedis (L) Abdomen: positive: Non-tender, No distention, Tenderness Extremities: positive: Full ROM, Other (Right leg lower extremity edema extending from thigh to foot with +1 pitting edema) Neurologic/Psychiatric: positive: Oriented x3, CN's nml (2-12), Motor nml, Sensation nml - Lab Results Fish Bones: 05/07/18 13:05 05/08/18 05:50 Other Labs: Lab Results x24hrs 05/08/18 05/08/18 05/07/18 Range/Units 05:50 05:50 13:05 WBC (4.8-10.8) x10^3/uL RBC (4.20-5.40) 10^6/uL Hgb (12.0-16.0) g/dL Hct (37.0-47.0) % MCV (81.0-99.0) fL MCH (27.0-31.0) pg MCHC (32.0-36.0) g/dL RDW (12.0-15.0) % Plt Count (130-450) 10^3/uL MPV (7.9-10.8) fL Neut # (Auto) (1.5-6.6) 10^3/uL Lymph # (Auto) (1.5-3.5) 10^3/uL [place] # (Auto) (0.0-1.0) 10^3/uL Eos # (Auto) (0.0-0.7) 10^3/uL Baso # (Auto) (0.0-0.1) 10^3/uL Absolute Nucleated RBC x10^3/uL Nucleated RBC % /100WBC PT (9.9-12.6) secs INR (0.8-1.2) Sodium 127 L (135-145) mmol/L Potassium 3.2 L (3.5-5.0) mmol/L Chloride 81 L (101-111) mmol/L Carbon Dioxide 37 H (21-32) mmol/L Anion Gap 9.0 (6-13) BUN 7 (6-20) mg/dL Creatinine 0.5 (0.4-1.0) mg/dL Estimated GFR (MDRD) 117 (>89) Glucose 92 (70-100) mg/dL Calcium 8.9 (8.5-10.3) mg/dL Phosphorus 2.2 L (2.5-4.6) mg/dL Magnesium (1.7-2.8) mg/dL Total Bilirubin (0.2-1.0) mg/dL AST (10-42) IU/L ALT (10-60) IU/L Alkaline Phosphatase (42-121) IU/L Troponin I (<0.49) ng/mL B-Natriuretic Peptide 167 H (5-100) pg/mL Total Protein (6.7-8.2) g/dL Albumin (3.2-5.5) g/dL Globulin (2.1-4.2) g/dL Albumin/Globulin Ratio (1.0-2.2) Lipase (22-51) U/L 05/07/18 05/07/18 05/07/18 Range/Units 13:05 13:05 13:05 WBC (4.8-10.8) x10^3/uL RBC (4.20-5.40) 10^6/uL Hgb (12.0-16.0) g/dL Hct (37.0-47.0) % MCV (81.0-99.0) fL MCH (27.0-31.0) pg MCHC (32.0-36.0) g/dL RDW (12.0-15.0) % Plt Count (130-450) 10^3/uL MPV (7.9-10.8) fL Neut # (Auto) (1.5-6.6) 10^3/uL Lymph # (Auto) (1.5-3.5) 10^3/uL [place] # (Auto) (0.0-1.0) 10^3/uL Eos # (Auto) (0.0-0.7) 10^3/uL Baso # (Auto) (0.0-0.1) 10^3/uL Absolute Nucleated RBC x10^3/uL Nucleated RBC % /100WBC PT (9.9-12.6) secs INR (0.8-1.2) Sodium 126 L (135-145) mmol/L Potassium 3.5 (3.5-5.0) mmol/L Chloride 80 L* (101-111) mmol/L Carbon Dioxide 37 H (21-32) mmol/L Anion Gap 9.0 (6-13) BUN 7 (6-20) mg/dL Creatinine 0.6 (0.4-1.0) mg/dL Estimated GFR (MDRD) 95 (>89) Glucose 106 H (70-100) mg/dL Calcium 9.2 (8.5-10.3) mg/dL Phosphorus (2.5-4.6) mg/dL Magnesium 1.2 L (1.7-2.8) mg/dL Total Bilirubin 0.8 (0.2-1.0) mg/dL AST 22 (10-42) IU/L ALT 13 (10-60) IU/L Alkaline Phosphatase 75 (42-121) IU/L Troponin I < 0.04 (<0.49) ng/mL B-Natriuretic Peptide 255 H (5-100) pg/mL Total Protein 7.2 (6.7-8.2) g/dL Albumin 3.6 (3.2-5.5) g/dL Globulin 3.6 (2.1-4.2) g/dL Albumin/Globulin Ratio 1.0 (1.0-2.2) Lipase 61 H (22-51) U/L 05/07/18 05/07/18 Range/Units 13:05 13:05 WBC 7.4 (4.8-10.8) x10^3/uL RBC 4.06 L (4.20-5.40) 10^6/uL Hgb 12.3 (12.0-16.0) g/dL Hct 37.1 (37.0-47.0) % MCV 91.3 (81.0-99.0) fL MCH 30.3 (27.0-31.0) pg MCHC 33.1 (32.0-36.0) g/dL RDW 15.1 H (12.0-15.0) % Plt Count 181 (130-450) 10^3/uL MPV 7.9 (7.9-10.8) fL Neut # (Auto) 5.7 (1.5-6.6) 10^3/uL Lymph # (Auto) 0.5 L (1.5-3.5) 10^3/uL [place] # (Auto) 1.0 (0.0-1.0) 10^3/uL Eos # (Auto) 0.1 (0.0-0.7) 10^3/uL Baso # (Auto) 0.1 (0.0-0.1) 10^3/uL Absolute Nucleated RBC 0.00 x10^3/uL Nucleated RBC % 0.0 /100WBC PT 12.2 (9.9-12.6) secs INR 1.1 (0.8-1.2) Sodium (135-145) mmol/L Potassium (3.5-5.0) mmol/L Chloride (101-111) mmol/L Carbon Dioxide (21-32) mmol/L Anion Gap (6-13) BUN (6-20) mg/dL Creatinine (0.4-1.0) mg/dL Estimated GFR (MDRD) (>89) Glucose (70-100) mg/dL Calcium (8.5-10.3) mg/dL Phosphorus (2.5-4.6) mg/dL Magnesium (1.7-2.8) mg/dL Total Bilirubin (0.2-1.0) mg/dL AST (10-42) IU/L ALT (10-60) IU/L Alkaline Phosphatase (42-121) IU/L Troponin I (<0.49) ng/mL B-Natriuretic Peptide (5-100) pg/mL Total Protein (6.7-8.2) g/dL Albumin (3.2-5.5) g/dL Globulin (2.1-4.2) g/dL Albumin/Globulin Ratio (1.0-2.2) Lipase (22-51) U/L - Diagnostic Imaging Diagnostic Imaging Results: positive: Prelim report reviewed, Final report reviewed ABX Reporting Has patient been on IV antibiotics over the past 48 hours?: No Assessment/Plan - Problem List (1) Atrial fibrillation with rapid ventricular response Impression: Cause: Atrial Fibrillation w/ RVR Plan: Tolerating PO Diltiazem - switch long acting Diltiazem (2) HTN (hypertension) Impression: Chronic HTN Plan: Continue home medication Qualifiers: Hypertension type: essential hypertension Qualified Code(s): I10 - Essential (primary) hypertension (3) Hypoxia Impression: Chronic Hypoxia Plan: Continue home oxygen of 2L (4) Lower extremity edema Impression: Cor Pulmonale, Right Heart Strain Plan: Previous Echo shows right heart strain due to pulmonary hypertension resulting in anasarca. Ordered Bilateral lower extremity ultrasound to rule out DVT. (5) Electrolyte and fluid disorder Impression: Chronic since her last discharge. Hyponatremic and hypokalemic. Plan: IV fluids, supplement potassium as needed by p.o. meds, check BMP daily
[2018-05-08] MEDS: HYDROcod/ACETAM 5/325 MG TABLET PO PRN (19:45)
[2018-05-09] MEDS: SODIUM CHLORIDE FLUSH 0.9% 10 ML SYRINGE IVP SCH ×4 (01:22→23:58)
--- NOTE | 2018-05-09 03:17 | Ultrasound Report ---
Reason: b/l leg edema, R>L Procedure Date: 05/09/2018 Accession Number: [id number] / [id number] Procedure: US - Duplex Ext Veins Bilateral CPT Code: FULL RESULT: EXAM: BILATERAL LOWER EXTREMITY VENOUS ULTRASOUND EXAM DATE: 05/09/2018 01:48 AM. CLINICAL HISTORY: Bilateral leg edema. COMPARISON: 02/26/2014 and 08/13/2010. TECHNIQUE: Real-time sonographic vascular imaging was performed by the finance controller through the lower extremities utilizing both color-flow and Doppler spectral analysis. Multiple product representative static images were saved for review. FINDINGS: Right: Common Femoral Vein (CFV): Normal. CFV-GSV Junction: Normal. Profunda Femoral Vein (PFV): Normal. Femoral Vein (FV) Prox: Normal. Femoral Vein (FV) Mid: Normal. Femoral Vein (FV) Dist: Normal. Popliteal Vein: Normal. Posterior Tibial Veins: Suboptimally seen. Peroneal Veins: Suboptimally seen. Left: Common Femoral Vein (CFV): Normal. CFV-GSV Junction: Normal. Profunda Femoral Vein (PFV): Normal. Femoral Vein (FV) Prox: Normal. Femoral Vein (FV) Mid: Normal. Femoral Vein (FV) Dist: Suboptimally seen. Popliteal Vein: Normal. Posterior Tibial Veins: Suboptimally seen. Peroneal Veins: Suboptimally seen. Other: None. IMPRESSION: 1. No evidence for deep venous thrombosis bilaterally. 2. Distal left femoral vein and bilateral calf veins are poorly seen due to body habitus. RADIA
[2018-05-09 06:29] LABS: CALCIUM 8.2 mg/dL (8.5-10.3); CREATININE 0.6 mg/dL (0.4-1.0)
[2018-05-09] MEDS: PANTOPRAZOLE 40 MG TABLET PO SCH (06:38)
--- NOTE | 2018-05-09 09:20 | PROVIDER PROGRESS NOTE ---
Subjective - Prog Note Date Prog Note Date: 05/09/18 Prog Note Time: 09:00 - Subjective Pt reports feeling: Improved Subjective: 87 yo female with pmh of chronic alcohol use, chronic back pain, HTN, left breast cancer stage II on inpatient day 3 of new onset atrial fibrillation. Pt denies any palpitations, heart racing, chest pain, shortness of breath, abdominal pain. Discussed with patient the importance of walking. Pt has not walked or had activity outside of her bed since she was admitted. Pt was able to stand with aid and walk 15 steps with a walker. Pt oxygen saturation was monitored staying above 93%. Pt HR was elevated into the 120s, but decreased below 100 within 2 minutes of resting. Pt states that she had Home Health PT from her recent discharge on 04/25/18 for CAP. Pt states the Home Health PT has yet to contact her. Pt states her lower extremity edema has decreased and that she is feeling better than when she arrived. Current Medications - Current Medications Current Medications: Current Medications Generic Name Dose Route Start Last Admin Trade Name Freq PRN Reason Stop Dose Admin Acetaminophen 650 mg 05/07/18 14:36 05/08/18 12:58 Tylenol PO 650 mg Q4HR PRN Administration Pain 1 to 4 Hydrocodone Bitart/Acetaminophen 1 tab 05/07/18 14:36 05/08/18 19:45 [place] 5/325 PO 1 tab Q4HR PRN Administration Pain 5 to 7 Azithromycin 250 mg 05/08/18 09:00 05/08/18 09:58 Zithromax PO 250 mg DAILY [place] Administration Diltiazem HCl 120 mg 05/08/18 09:00 05/08/18 10:37 Cardizem Cd PO 120 mg DAILY [place] Administration Duloxetine HCl 30 mg 05/08/18 09:00 05/08/18 09:58 Cymbalta PO 30 mg DAILY [place] Administration Enoxaparin Sodium 40 mg 05/08/18 09:00 05/08/18 09:58 Lovenox SUBQ 40 mg DAILY [place] Administration Guaifenesin 600 mg 05/07/18 21:00 05/08/18 20:44 Mucinex PO 600 mg BID [place] Administration Multi-Ingredient Ointment 1 applic 05/08/18 11:11 05/08/18 12:58 Zinc Oxide TOP 1 applic PRN PRN Administration Skin Care Pantoprazole Sodium 40 mg 05/08/18 07:00 05/09/18 06:38 Protonix PO 40 mg QDAC [place] Administration Polyethylene Glycol 17 gm 05/08/18 09:00 05/08/18 10:03 Miralax PO Not Given DAILY [place] Senna 8.6 mg 05/08/18 09:00 05/08/18 10:03 Senokot PO Not Given DAILY [place] Sodium Chloride 10 ml 05/07/18 17:00 05/09/18 01:22 Normal Saline Flush 0.9% IVP 10 ml 0100,[id number],1700 [place] Administration Spironolactone 25 mg 05/08/18 09:00 05/08/18 09:58 Aldactone PO 25 mg DAILY [place] Administration Objective - Vital Signs/Intake & Output Reviewed Vital Signs: Yes Vital Signs: Vital Signs x48h Temp Pulse Resp BP Pulse Ox 05/09/18 08:34 36.8 C 100 22 123/61 99 05/09/18 05:00 36.6 C 89 16 142/65 H 99 Intake & Output: Intake & Output 05/06/18 05/07/18 05/08/18 05/09/18 23:59 23:59 23:59 23:59 Intake Total 410 1415 340 Output Total 1750 420 300 Balance -1340 995 40 - Objective General Appearance: positive: No acute distress Eyes Bilateral: positive: Normal inspection, PERRL ENT: positive: ENT inspection nml, Pharynx nml, No signs of dehydration Neck: positive: Nml inspection Respiratory: positive: Chest non-tender, No respiratory distress, Breath sounds nml. negative: Wheezes, Rales, Rhonchi Cardiovascular: positive: No murmur, No gallop, Irregularly irregular Abdomen: positive: Non-tender, No organomegaly, Nml bowel sounds, No distention. negative: Tenderness Back: positive: Nml inspection Skin: positive: Color nml, No rash Extremities: positive: Non-tender, Full ROM Neurologic/Psychiatric: positive: Oriented x3, CN's nml (2-12), Mood/affect nml - Lab Results Fish Bones: 05/07/18 13:05 05/09/18 06:04 Other Labs: Lab Results x24hrs 05/09/18 05/09/18 Range/Units 06:04 06:04 Sodium 124 L (135-145) mmol/L Potassium 3.3 L (3.5-5.0) mmol/L Chloride 78 L* (101-111) mmol/L Carbon Dioxide 37 H (21-32) mmol/L Anion Gap 9.0 (6-13) BUN 8 (6-20) mg/dL Creatinine 0.6 (0.4-1.0) mg/dL Estimated GFR (MDRD) 95 (>89) Glucose 87 (70-100) mg/dL Calcium 8.2 L (8.5-10.3) mg/dL B-Natriuretic Peptide 179 H (5-100) pg/mL - Diagnostic Imaging Diagnostic Imaging Results: positive: Final report reviewed Diagnostic Imaging Comments: Procedure: US- Duplex Ext Veins Bilateral CPT Code: Full Result: Exam: Bilateral Lower Extremity Venous Ultrasound Exam Date: 05/09/2018 01:48AM Clinical History: Bilateral Leg Edema. Comparison: 02/26/2014 and 08/13/2010 Technique: Real-time sonographic vascular imaging was performed by the electrician master through the lower extremities utilizing both color-flow and Doppler spectral analysis. Multiple freight representative static images were saved for review. Findings: Right: Common Femoral Vein (CFV): normal. CFV-GSV Junction: Normal. Profunda Femoral Vein (PFV): normal. Femoral Vein (FV) Prox: Normal Femoral Vein (FV) Mid: Normal Femoral Vein (FV) Dist: Normal Popliteal Vein: Normal Posterior Tibial Veins: Suboptimally seen Peroneal Veins: Suboptimally seen Left: Common Femoral Vein (CFV): normal. CFV-GSV Junction: Normal. Profunda Femoral Vein (PFV): normal. Femoral Vein (FV) Prox: Normal Femoral Vein (FV) Mid: Normal Femoral Vein (FV) Dist: Suboptimally seen. Popliteal Vein: Normal Posterior Tibial Veins: Suboptimally seen Peroneal Veins: Suboptimally seen Impression: 1. No evidence of deep venous thrombosis bilaterally. 2. Distal Left vein and bilateral calf veins are poorly seen due to body habitus. Reading Radiologist: Theodore Douglas MD 05/09/18 0317 ABX Reporting Has patient been on IV antibiotics over the past 48 hours?: No Assessment/Plan - Problem List (1) Atrial fibrillation with rapid ventricular response Impression: Rate controlled new onset atrial fibrillation with PO Dilitiazem. Pt HR staying within 80-90. Her CHADsVasc score was 2. Intermediate. We have deliberately thought about the risk involved in this elderly woman who is at risk for falls, has memory loss and is noncompliant, and cost of medication. As such, no anticoagulation with anything other than aspirin. However, her primary care provider is Theodore Angela, he may want to sit down and speak to her and her son about a different treatment plan. Echo from April 25, 2018 shows EF of 60-65%. No regional wall motion abnormalities. Right ventricular systolic function normal. Mild increase in left atrial volume index. Moderate pulmonary hypertension with a PASP 53 mmHg. Plan: Continue PO Diltiazem Monitor vitals on telemetry (2) HTN (hypertension) Impression: Chronic Hypertension Plan: Monitor Vitals Continue PO home medication. Qualifiers: Hypertension type: essential hypertension Qualified Code(s): I10 - Essential (primary) hypertension (3) Hypoxia Impression: Patient does not require home oxygen. Patient able to walk without oxygen 15 feet and maintain above 93% oxygen saturation. Plan: Continue to monitor oxygen saturation. If drops below 92%, resume 2L via NC. (4) Lower extremity edema Impression: Bilateral Lower extremity US venous does not reveal any deep venous thrombosis. Lower extremity edema has improved with patient attempting to ambulate with walker. Plan: Continue to ambulate patient. Continue spironolactone. (5) Electrolyte and fluid disorder Impression: Patient continues to have hyponatremia, hypochloremia and hypocalcemia since last admission discharge of 04/25/18. Increased hyponatremia, hyochloremia, and hypocalcemia since this admission. Plan: Start fluid bolus of 0.9% NS IV Ca, IV Mg Repeat BMP monitoring electrolyte
[2018-05-09] MEDS ORDERED: SODIUM CHLORIDE 0.9% 1,000 ML IV SCH (10:00)
[2018-05-09] MEDS: diltiaZEM CD 120 MG CAPSULE PO SCH (10:52)
[2018-05-09] MEDS: AZITHROMYCIN 250 MG TABLET PO SCH (10:53)
[2018-05-09] MEDS: ENOXAPARIN 40 MG/0.4 ML SYRINGE SUBQ SCH (10:53)
[2018-05-09] MEDS: guaiFENesin 600 MG TABLET PO SCH ×2 (10:53→21:08)
[2018-05-09] MEDS: DULoxetine 30 MG CAPSULE PO SCH (10:53)
[2018-05-09] MEDS: ACETAMINOPHEN 325 MG TABLET PO PRN ×2 (10:54→21:08)
[2018-05-09] MEDS: SENNA 8.6 MG TABLET PO SCH (10:54)
[2018-05-09] MEDS: POLYETHYLENE GLYCOL 3350 17 GM PACKET PO SCH (10:54)
[2018-05-09] MEDS: SPIRONOLACTONE 25 MG TABLET PO SCH (11:19)
[2018-05-10] MEDS: HYDROcod/ACETAM 5/325 MG TABLET PO PRN (01:26)
[2018-05-10] MEDS: BENZOCAINE/MENTHOL LOZENGE MM PRN ×3 (03:37→07:52)
[2018-05-10] MEDS: PANTOPRAZOLE 40 MG TABLET PO SCH (06:48)
[2018-05-10] MEDS: DULoxetine 30 MG CAPSULE PO SCH (07:52)
[2018-05-10] MEDS: SENNA 8.6 MG TABLET PO SCH (07:52)
[2018-05-10] MEDS: AZITHROMYCIN 250 MG TABLET PO SCH (07:52)
[2018-05-10] MEDS: SODIUM CHLORIDE FLUSH 0.9% 10 ML SYRINGE IVP SCH (07:53)
[2018-05-10] MEDS: guaiFENesin 600 MG TABLET PO SCH (07:53)
[2018-05-10] MEDS: SPIRONOLACTONE 25 MG TABLET PO SCH (07:53)
[2018-05-10] MEDS: ENOXAPARIN 40 MG/0.4 ML SYRINGE SUBQ SCH (07:53)
[2018-05-10] MEDS: diltiaZEM CD 120 MG CAPSULE PO SCH (07:53)
[2018-05-10] MEDS: POLYETHYLENE GLYCOL 3350 17 GM PACKET PO SCH (08:23)
[2018-05-10 09:21] LABS: CALCIUM 8.3 mg/dL (8.5-10.3); CREATININE 0.6 mg/dL (0.4-1.0)
--- NOTE | 2018-05-10 10:33 | PROVIDER PROGRESS NOTE ---
Subjective - Prog Note Date Prog Note Date: 05/10/18 Prog Note Time: 08:30 - Subjective Pt reports feeling: Improved Subjective: 87 yo female with pmh of chronic alcohol use, chronic back pain, HTN, left breast cancer stage II on inpatient day 4 of new onset atrial fibrillation. Pt states she is feeling improved. Pt states she was able to ambulate to the restroom once during the night. Pt denies any palpitations, heart racing, chest pain, shortness of breath, abdominal pain. Pt states her lower extremity edema has decreased and that she is feeling better than when she arrived.Continue discussion with patient on the importance of ambulating. Pt states she had a discussion with her son and daughter who lives in [place] about her placement in SNF. Patient agrees with the son and daughter about her need for rehab. Current Medications - Current Medications Current Medications: Current Medications Generic Name Dose Route Start Last Admin Trade Name Freq PRN Reason Stop Dose Admin Acetaminophen 650 mg 05/07/18 14:36 05/09/18 21:08 Tylenol PO 650 mg Q4HR PRN Administration Pain 1 to 4 Hydrocodone Bitart/Acetaminophen 1 tab 05/07/18 14:36 05/10/18 01:26 [place] 5/325 PO 1 tab Q4HR PRN Administration Pain 5 to 7 Azithromycin 250 mg 05/08/18 09:00 05/10/18 07:52 Zithromax PO 250 mg DAILY [place] Administration Diltiazem HCl 120 mg 05/08/18 09:00 05/10/18 07:53 Cardizem Cd PO 120 mg DAILY [place] Administration Duloxetine HCl 30 mg 05/08/18 09:00 05/10/18 07:52 Cymbalta PO 30 mg DAILY [place] Administration Enoxaparin Sodium 40 mg 05/08/18 09:00 05/10/18 07:53 Lovenox SUBQ 40 mg DAILY [place] Administration Guaifenesin 600 mg 05/07/18 21:00 05/10/18 07:53 Mucinex PO 600 mg BID [place] Administration Lidocaine 1 patch 05/07/18 16:26 05/10/18 01:26 Lidoderm Patch TOP 1 patch DAILY PRN Administration PAIN Multi-Ingredient Ointment 1 applic 05/08/18 11:11 05/08/18 12:58 Zinc Oxide TOP 1 applic PRN PRN Administration Skin Care Pantoprazole Sodium 40 mg 05/08/18 07:00 05/10/18 06:48 Protonix PO 40 mg QDAC [place] Administration Polyethylene Glycol 17 gm 05/08/18 09:00 05/10/18 08:23 Miralax PO Not Given DAILY [place] Senna 8.6 mg 05/08/18 09:00 05/10/18 07:52 Senokot PO 8.6 mg DAILY [place] Administration Sodium Chloride 10 ml 05/07/18 17:00 05/10/18 07:53 Normal Saline Flush 0.9% IVP 10 ml 0100,0900,1700 [place] Administration Spironolactone 25 mg 05/08/18 09:00 05/10/18 07:53 Aldactone PO 25 mg DAILY [place] Administration Throat Lozenges 1 lozenge 05/10/18 03:18 05/10/18 07:52 Cepacol MM 1 lozenge Q2HR PRN Administration Throat pain Objective - Vital Signs/Intake & Output Reviewed Vital Signs: Yes Vital Signs: Vital Signs x48h Temp Pulse Resp BP Pulse Ox 05/10/18 07:36 36.6 C 81 20 143/71 H 98 05/10/18 04:15 36.6 C 85 18 126/62 99 Intake & Output: Intake & Output 05/07/18 05/08/18 05/09/18 05/10/18 23:59 23:59 23:59 23:59 Intake Total 410 1415 2080 490 Output Total 1750 420 300 250 Balance -2359 157 6787 240 - Objective General Appearance: positive: No acute distress Eyes Bilateral: positive: Normal inspection ENT: positive: ENT inspection nml, Pharynx nml, No signs of dehydration Neck: positive: Nml inspection Respiratory: positive: Chest non-tender, No respiratory distress, Breath sounds nml Cardiovascular: positive: No murmur, No gallop, Irregularly irregular Peripheral Pulses: 2+ Radial (R), 2+ Radial (L) Abdomen: positive: Non-tender, No organomegaly, Nml bowel sounds, No distention Skin: positive: Color nml, No rash, Warm, Dry Extremities: positive: Non-tender, Full ROM, Nml appearance Neurologic/Psychiatric: positive: Oriented x3, CN's nml (2-12), Mood/affect nml - Lab Results Fish Bones: 05/07/18 13:05 05/10/18 08:55 Other Labs: Lab Results x24hrs 05/10/18 Range/Units 08:55 Sodium 121 L (135-145) mmol/L Potassium 3.3 L (3.5-5.0) mmol/L Chloride 80 L* (101-111) mmol/L Carbon Dioxide 34 H (21-32) mmol/L Anion Gap 7.0 (6-13) BUN 7 (6-20) mg/dL Creatinine 0.6 (0.4-1.0) mg/dL Estimated GFR (MDRD) 95 (>89) Glucose 128 H (70-100) mg/dL Calcium 8.3 L (8.5-10.3) mg/dL - Diagnostic Imaging Diagnostic Imaging Results: positive: Final report reviewed ABX Reporting Has patient been on IV antibiotics over the past 48 hours?: No Assessment/Plan - Problem List (1) Atrial fibrillation with rapid ventricular response Impression: Atrial fibrillation with RVR new onset. Pt has been monitored via telemetry with HR staying in the 80's via rate control medication Diltiazem. Pt denies palpitations, dizziness, headache, chest pain. Plan: Continue Diltiazem for rate control Monitor vitals and rhythm via telemetry (2) HTN (hypertension) Impression: Chronic issue. Patient vitals remain stable. Plan: Continue home medication Monitor vitals. Qualifiers: Hypertension type: essential hypertension Qualified Code(s): I10 - Essential (primary) hypertension (3) Hypoxia Impression: Patient is currently on 1L of oxygen via NC. Remains above 98%. Plan: Continue to monitor oxygen saturation Road test without oxygen supplementation (4) Lower extremity edema Impression: Patient lower extremity edema improves. Continue to promote ambulation and medication support Plan: Continue spironolactone Continue discussion with patient about ambulation. (5) Electrolyte and fluid disorder Impression: Electrolyte imbalance improved following NS bolus. Continue to monitor labs. Plan: Continue to monitor labs Repeat BMP and replace electrolytes (6) Weakness Impression: With the last hospital stay for pneumonia and with this day, this patient is a been very reluctant to get out of bed. The prolonged bed stay has resulted in significant deconditioning. She really has to be prompted and coaxed to get out of bed by physical therapy. She was seen by physical therapy who feels that she would benefit from group home facility rehab. Assess the patient will be transferred to group home facility today for rehab.
--- NOTE | 2018-05-10 11:38 | Discharge Plan ---
"Discharge Plan for SNF / [facility] - Discharge Plan And Transition Orders Disposition: 03 SNF DC/Xfer Condition: Fair Allergies and Adverse Reactions: Allergies Allergy/AdvReac Type Severity Reaction Status Date / Time lisinopril Allergy Severe Anaphylaxis Verified 12/09/17 16:31 ciprofloxacin [From Cipro] Allergy Unknown Unknown Verified 12/09/17 16:31 ciprofloxacin HCl * Allergy Unknown Unknown Verified 12/09/17 16:31 [From Cipro] Sulfa (Sulfonamide Allergy Unknown Unknown Verified 12/09/17 16:31 Antibiotics) - SNF / CARE HOME Transition Orders Admit to (Facility): [facility] Home Discharge Diagnosis: 1. Acute on chronic right-sided systolic congestive heart failure secondary to #2 2. New onset atrial fibrillation with rapid ventricular response 3. Hypertension 4. Hypochloremia, hyponatremia, hypokalemia secondary to dehydration, fluid loss and diuretic use 5. Hypoxia 6. Moderate cognitive deficit of aging. 7. Depression 8. COPD hx 9. Breast cancer hx. Medicare Certification Statement: I certify that Post Hospital usp care is medically necessary on a continuing basis for any of the conditions for which she/he is receiving care during hospitalization. Notify PCP of admission and forward orders to primary provider for signature. Weight on admission and: Weekly Call PCP immediately if weight increases by: 2.2 kg Other Notification Orders: Call PCP immediately if patient develops dyspnea, chest pain/tightness or edema. House Bowel Program: Yes Additional Bowel Program Orders: If no BM after 2 days, nurse may give M.O.M. 30ml PO PRN and/or ducolax Supp 1 AL and/or JULI 250mg P.O., and/or senna 1-2 tabs PO. On day 3 nurse may give repeat above order until residents constipation is resolved. Annual Influenza Vaccine (between Mar 10 and October 07): Yes Two-step PPD per [facility] [id number] or approved exception documents: Yes Lab Tests or X-ray Orders: BMP and BNP 05/11 and 05/14 Medication Orders: PLEASE REFER TO THE DISCHARGE MEDICATION LIST. Insulin Orders?: No - Medications New Prescriptions: Potassium Chloride 20 meq PO DAILY #1 tablet.er - Diet Type: No added salt Texture: Regular Liquids: Thin May have monthly special meal: Yes - Therapies | Activity Therapy: Evaluation | Treat if indicated: PT, OT Rehabilitation Potential: Return to independent living Activity: Activity as Tolerated Weight Bearing: Full Weight Assistance Devices: Walker Additional Instructions: She is an elderly female who usually lives in her own home with her son. She was recently hospitalized with pneumonia and sent home. With her last admission she was identified as having pulmonary hypertension with mild right-sided heart failure. She is still on her antibiotics for pneumonia when she returned with worsening acute shortness of breath. Found to have new onset atrial fibrillation. Her echocardiogram with last admission showed intact ejection fraction, mild left atrial enlargement, and mild to moderate pulmonary hypertension. It was not repeated with this admission. Rate was slowed with Cardizem and metoprolol. Pneumonia treatment continued. It is now completed. We do not feel that she is a candidate for anticoagulation because of her risk of falls, and mild cognitive deficit. However that issue may be re-addressed with primary care provider and a cardiology opinion if she can get one. She continues to have a sodium of 121, chloride of 80. She will need potassium supplementation. Today's potassium 3.3. She will receive supply supplementation before she leaves. She is very weak. We have also held her diuretics temporarily. I think we have iatrogenic electrolyte disorder because of her diuresis. Once her electrolytes have normalized, she may be gingerly resumed on a diuretic in the outpatient setting. Is very reluctant to get up and move. Requires a lot of prompting. If she does not get her strength back, she has a very poor prognosis."
[2018-05-10 12:25] VITALS: BP 147/77
--- NOTE | 2018-05-10 16:26 | DISCHARGE SUMMARY ---
"Discharge Summary Admit Date: 05/07/18 Discharge Date: 05/10/18 Discharging Provider: Nyla Dunne MD Primary Care Provider: Theodore Angela MD Code Status: Attempt Resuscitation Condition at Discharge: Fair Discharge Disposition: 03 SNF DC/Xfer Discharge Facility Name: [facility] - DIAGNOSES Discharge Diagnoses with Status of Each Condition: 1. 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 New Onset Atrial Fibrillation with RVR: rate controlled 3. Generalized Weakness: present on d/c 4. Hypoxia: Resolved 5. Lower Extremity Edema: Resolved 6. Electrolyte Imbalance: Continued. 7. Pneumonia history 03/2018 - HPI History of Present Illness: This patient is an 87-year-old female with past medical history significant for chronic alcohol use, chronic back pain, hypertension, left breast cancer stage II, longer under treatment, she was recently discharged from the hospital on 04/25/2018 after having been admitted for community-acquired pneumonia.During her stay she was noted to be significantly deconditioned. Very tired, having difficulty ambulating in the room because of shortness of breath and fatigue. She was evaluated by physical therapy and it was strongly recommended she go to fdc facility for rehab. She declined going after numerous requests from physical therapy, hospitalist service, and her son. The reason she was evaluated in the emergency room is that she was checking her heart rate by pulse at home, which is something that she does regularly and she found it to be 120 bpm. In the emergency room, patient was evaluated and found to be in A. fib with RVR. She was also hypoxic compared with her previous level of oxygen requirement, which was 2 L at the time of discharge, now requiring 3 L of oxygen. Patient explicitly denied any shortness of breath or chest pain, though the emergency room evaluation included a chief complaint of dyspnea on exertion. She also complains of increased edema of the bilateral extremities, right worse than left. She states that her right lower extremity is typically edematous however it is now worse than usual. She also stated that her left lower extremity is typically normal without edema and it is now mild to moderately edematous. She also complains of a sensation of fluid collecting in her abdomen and increased urinary frequency. In the ER, she was given an initial dose of diltiazem which brought her heart rate down from the 120s down to 107. She was also found to be significantly hypochloremic with a chloride level of 80, and was also hyponatremic with a so dium level of 126. Both of these abnormalities were present at the time of discharge and her sodium level was exactly the same however her chloride level had typically been in the mid to high 80s. After initiating treatment for the atrial fibrillation, hospitalist service was contacted for medical admission. At the time of my evaluation, the patient was about to undergo an ultrasound of the lower extremities, the results of which I do not have the notes yet. 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 Chest X-ray revealed mild cardiomegaly, moderate diffuse interstitial prominence. Differential is between interstitial edema versus airway disease/viral syndrome. Overall, mild improved aeration right lung base. Bilateral Lower extremity venous ultrasound revealed no evidence for deep venous thrombosis bilaterally. Distal left femoral vein and bilateral calf veins are poorly seen due to body habitus. - HOSPITAL COURSE Hospital Course: Patient was admitted with concern for uncontrolled atrial fibrillation with RVR, right sided systolic heart failure, weakness, hypoxia, lower extremity edema and electrolyte imbalance. Patients atrial fibrillation was controlled with IV Diltiazem of which was switched to PO Diltiazem and tolerated. Patient HR remained in the 80's on PO Diltiazem. Echocardiogram had already been done with her previous admission on April 26. She had mild concentric left ventricular hypertrophy with normal systolic function. Ejection fraction is 60%. The left atrium was only minimally dilated. She had mild mitral regurgitation. She did have moderate pulmonary hypertension with AP ASP 53 mmHg. The right ventricle was normal size. Mildly dilated ascending aorta at 3.8 cm. Chads vas score is 2. We did go over the pros and cons of anticoagulating this elderly female who is at risk for falls. She is also very resistant to change in medication, addition of medication. After discussing this we have opted not to anticoagulate at this time. But we encouraged her to discuss this with her PCP or a Ivf Embryologist to reasses her risk. Patients weakness was evaluated by PT and OT. Patient lacks interest and motivation to be active. Patient was able to stand and ambulate with the use of a walker and understood the importance of ambulating and activity. Patients hypoxia was monitored as home oxygen is chronic at 2L of oxygen. Patient oxygen saturation was kept >92% with 1L of oxygen on final day of stay. Patient was road tested and walked 15 ft without being out of breath holding oxygen saturation >92%. Patients lower extremity edema was evaluated with a bilateral US venous dopplar for deep venous thrombosis. US revealed no deep vein thrombosis. Patients lower extremity edema was felt to be due to lack of activity, weakness and right side systolic heart failure. Patient electrolyte imbalance was monitored via BMP. Patients electrolyte imbalance was replaced via NS and electrolytes continued to improve. At discharge she was prescribed potassium for a short duration and will need a BMP checked in the next few days since she is on spironolactone as well. Patient had been living with her son. The son recommended his mother seek fdc facility in order for proper aid and help. The son and daughter discussed the matter with the patient and the patient agreed to be transferred to [facility], a fdc facility near the daughter. - ALLERGIES Allergies/Adverse Reactions: Allergies Allergy/AdvReac Type Severity Reaction Status Date / Time lisinopril Allergy Severe Anaphylaxis Verified 12/09/17 16:31 ciprofloxacin [From Cipro] Allergy Unknown Unknown Verified 12/09/17 16:31 ciprofloxacin HCl * Allergy Unknown Unknown Verified 12/09/17 16:31 [From Cipro] Sulfa (Sulfonamide Allergy Unknown Unknown Verified 12/09/17 16:31 Antibiotics) - MEDICATIONS Home Medications: Ambulatory Orders Medication Instructions Recorded Confirmed DULoxetine [Cymbalta] 30 mg PO DAILY #30 05/02/18 05/09/18 Lidocaine Patch 5% [Lidoderm Patch] 1 patch TOP DAILY PRN #20 patch 05/02/18 05/09/18 amLODIPine [Norvasc] 5 mg PO DAILY #30 tablet 05/02/18 05/09/18 Acetaminophen 650 mg PO QID PRN 05/09/18 05/09/18 Atenolol 50 mg PO BID 05/09/18 05/09/18 Losartan [Cozaar] 50 mg PO BID 05/09/18 05/09/18 Potassium Chloride 20 meq PO DAILY #1 tablet.er 05/10/18 diltiaZEM CD [Cardizem Cd] 120 mg PO DAILY capsule 05/10/18 - PHYSICAL EXAM AT DISCHARGE General Appearance: positive: No acute distress, Alert Eyes Bilateral: positive: Normal inspection, PERRL ENT: positive: ENT inspection nml, No signs of dehydration Neck: positive: Nml inspection Respiratory: positive: Chest non-tender, No respiratory distress, Breath sounds nml. negative: Wheezes, Rales, Rhonchi Cardiovascular: positive: No murmur, No gallop, Irregularly irregular. negative: Tachycardia Peripheral Pulses: positive: 2+ Abdomen: positive: Non-tender, No organomegaly, Nml bowel sounds, No distention Rectal: negative: Bloody stool Back: positive: Nml inspection Skin: positive: Color nml, No rash, Warm, Dry Extremities: positive: Non-tender, Full ROM, Nml appearance, No pedal edema Neurologic/Psychiatric: positive: Oriented x3, Mood/affect nml. negative: Disoriented to person, Disoriented to place, Disoriented to time - LABS Result Diagrams: 05/07/18 13:05 05/10/18 08:55 - DIAGNOSTIC IMAGING Diagnostic Imaging Results: Final report reviewed Diagnostic Imaging Results Comments: EXAM: BILATERAL LOWER EXTREMITY VENOUS ULTRASOUND EXAM DATE: 05/09/2018 01:48 AM. CLINICAL HISTORY: Bilateral leg edema. COMPARISON: 02/26/2014 and 08/13/2010. TECHNIQUE: Real-time sonographic vascular imaging was performed by the horologist apprentice through the lower extremities utilizing both color-flow and Doppler spectral analysis. Multiple compliance representative static images were saved for review. FINDINGS: Right: Common Femoral Vein (CFV): Normal. CFV-GSV Junction: Normal. Profunda Femoral Vein (PFV): Normal. Femoral Vein (FV) Prox: Normal. Femoral Vein (FV) Mid: Normal. Femoral Vein (FV) Dist: Normal. Popliteal Vein: Normal. Posterior Tibial Veins: Suboptimally seen. Peroneal Veins: Suboptimally seen. Left: Common Femoral Vein (CFV): Normal. CFV-GSV Junction: Normal. Profunda Femoral Vein (PFV): Normal. Femoral Vein (FV) Prox: Normal. Femoral Vein (FV) Mid: Normal. Femoral Vein (FV) Dist: Suboptimally seen. Popliteal Vein: Normal. Posterior Tibial Veins: Suboptimally seen. Peroneal Veins: Suboptimally seen. Other: None. IMPRESSION: 1. No evidence for deep venous thrombosis bilaterally. 2. Distal left femoral vein and bilateral calf veins are poorly seen due to body habitus. [employer] Cloth Wire Weaver: Reading Radiologist: Theodore Douglas MD Releasing Radiologist: Theodore Douglas MD Released Date Time: 05/09/18316 Report 6 cc: Theodore Angela MD; Shan Putnam MD ED; Nyla Dunne MD Final Report PT NAME: YOAV MOTTA MR#: [id number] REG ER/ED AGE: 87 CI DT/TM: 05/07/18 PCP: Theodore Angela MD : 1930 ATT: SEX: F ORD: Shan Putnam MD EXAM: [id number] ([id number]) Reason: chest pain Procedure Date: 05/07/2018 Accession Number: [id number] / [id number] Procedure: XR - Chest 1 View X-Ray CPT Code: 51326 FULL RESULT: EXAM: CHEST RADIOGRAPHY EXAM DATE: 05/07/2018 12:45 PM. CLINICAL HISTORY: Chest pain. COMPARISON: CHEST 1 VIEW 04/27/2018 8:45 AM. TECHNIQUE: 1 view. FINDINGS: Lungs/Pleura: Stable moderate diffuse interstitial infiltrates. Almost complete resolution of a small airspace infiltrate right lung base. No effusion nor pneumothorax. New subsegmental consolidation/atelectasis anterior segment right upper lobe. Mediastinum: Stable mild cardiomegaly. Other: Multilevel kyphoplasty thoracolumbar junction. IMPRESSION: 1. Mild cardiomegaly. 2. Moderate diffuse interstitial prominence. Differential is between interstitial edema versus airway disease/viral syndrome. 3. Overall, mild improved aeration right lung base. [employer] Cloth Wire Weaver: Reading Radiologist: Samira Aden MD Releasing Radiologist: Samira Aden MD Released Date Time: 05/07/181311 Report 11 cc: Theodore Angela MD; Shan Putnam MD ED Principal Lumber Yard Worker Name: Samira Packerpyaal Provider ID: [id number] - FOLLOW UP Follow Up: PCP: Theodore Angela - TIME SPENT Time Spent in Discharge (Minutes): 35"
== END 2018-05-10 13:05 | DRG 291 ==
LOC: EDUNIT# → ED 12:05 → MS2 14:36
PROVIDERS: ADMIT Family Medicine Sports Medicine; ATTEND Specialist
DX: I11.0 Hypertensive heart disease with heart failure (principal); J18.9 Pneumonia, unspecified organism; E87.1 Hypo-osmolality and hyponatremia; R60.9 Edema, unspecified; E83.42 Hypomagnesemia; I50.23 Acute on chronic systolic (congestive) heart failure; I48.91 Unspecified atrial fibrillation; E87.8 Other disorders of electrolyte and fluid balance, not elsewhere classified; Z66 Do not resuscitate; E87.6 Hypokalemia; E83.51 Hypocalcemia; E86.0 Dehydration; R09.02 Hypoxemia; I27.29 Other secondary pulmonary hypertension; I50.813 Acute on chronic right heart failure; G31.84 Mild cognitive impairment of uncertain or unknown etiology; F32.9 Major depressive disorder, single episode, unspecified; J44.9 Chronic obstructive pulmonary disease, unspecified; M19.90 Unspecified osteoarthritis, unspecified site; G89.29 Other chronic pain; M54.9 Dorsalgia, unspecified; T50.2X5A Adverse effect of carbonic-anhydrase inhibitors, benzothiadiazides and other diuretics, initial encounter; Z91.14 Patient's other noncompliance with medication regimen; Z79.51 Long term (current) use of inhaled steroids; Z79.2 Long term (current) use of antibiotics; Z79.891 Long term (current) use of opiate analgesic; Z91.81 History of falling; Z72.89 Other problems related to lifestyle; Z85.3 Personal history of malignant neoplasm of breast; Z99.81 Dependence on supplemental oxygen; Z90.12 Acquired absence of left breast and nipple
CPT/HCPCS: 36415; 71045; 80048; 80053; 83690; 83735; 83880; 83930; 84100; 84484; 85025; 85610; 93005; 93970; 96365; 96375; 96376; 99284; 99285

== ENCOUNTER 2018-08-24 06:05 | Outpatient (CLI) | payer MEDICARE | END 2018-08-24 06:06 | disposition EMS.NT | LOC: EMS 06:05 | PROVIDERS: ATTEND Surgery ==